=== PATIENT | female | born 1975 | race Caucasian/White ===

== ENCOUNTER 2018-09-17 17:29 | Observation (INO) | payer OTHER ==
[2018-09-17] MEDS ORDERED: CLINDAMYCIN-D5W 600 MG/50 ML*** 600 MG/50 ML BAG IV STA (18:02)
--- NOTE | 2018-09-17 18:08 | ERPHSYRPT ---
- History of Present Illness Time Seen by Provider: 09/17/18 18:04 Source: patient Patient Subjective Stated Complaint: PT STATES "I HAVE A BOIL ON THE RT SIDE OF MY VAGINA, I THOUGHT IT POPPED BUT NOW ITS BACK AND IT HURTS REALLY BAD" Triage Nursing Assessment: SWOLLEN RT LABIA NOTED Physician History: 43-year-old white female with history of diabetes, arthritis. Patient arrives with complaint of swelling and pain in the right labia symptoms for 5-6 days. Patient without nausea no vomiting. Past medical history includes diabetes type 2, arthritis. Past surgical history includes patient has had a Mirena Timing/Duration: day(s) (5-6 days) Severity: moderate Associated Symptoms: fever, No nausea, No vomiting, No shortness of breath, No heartburn, No diaphoresis, No cough, No chills, No chest pain, No headaches, No loss of appetite, No malaise, No rash, No syncope, No seizure, No weakness Allergies/Adverse Reactions: latex Allergy (Intermediate, Verified 09/17/18 17:42) Rash Home Medications: Insulin Aspart [Novolog] 30 units SQ AC 07/27/12 [History] Metformin HCl 500 mg [Glucophage 500 MG] 500 mg PO BIDWM 09/17/18 [History ] Hx Tetanus, Diphtheria Vaccination/Date Given: Yes (6 YEARS AGO) Hx Influenza Vaccination/Date Given: Yes Hx Pneumococcal Vaccination/Date Given: No Immunizations Up to Date: Yes - Review of Systems Constitutional: Fever, No Chills, No Fatigue, No Lethargy, No Malaise, No Night Sweats, No Weakness, No Weight Loss Eyes: No Symptoms Ears, Nose, & Throat: No Symptoms Respiratory: No Cough, No Dyspnea Cardiac: No Chest Pain, No Edema, No Syncope Abdominal/Gastrointestinal: No Abdominal Pain, No Nausea, No Vomiting, No Diarrhea Genitourinary Symptoms: Other (patient with hard firm area on right labia) Musculoskeletal: No Back Pain, No Neck Pain Skin: Other (hard firm area right labia.) Neurological: No Dizziness, No Focal Weakness, No Sensory Changes Psychological: No Symptoms Endocrine: No Symptoms All Other Systems: Reviewed and Negative - Past Medical History Pertinent Past Medical History: Yes Neurological History: No Pertinent History ENT History: No Pertinent History Cardiac History: No Pertinent History Respiratory History: No Pertinent History Endocrine Medical History: Diabetes Type II Musculoskeletal History: Arthritis GI Medical History: No Pertinent History History: No Pertinent History Psycho-Social History: No Pertinent History Female Reproductive Disorders: No Pertinent History - Past Surgical History Past Surgical History: Yes Neuro Surgical History: No Pertinent History Cardiac: No Pertinent History Respiratory: No Pertinent History Gastrointestinal: No Pertinent History Genitourinary: No Pertinent History Musculoskeletal: No Pertinent History Female Surgical History: Section - Social History Smoking Status: Former smoker How long have you smoked: 14 Exposure to second hand smoke: No Drug Use: none Patient Lives Alone: No - Female History Hx Last Menstrual Period: MIRENA, IRREGULAR Hx Now: No - Nursing Vital Signs Nursing Vital Signs: Initial Vital Signs Temperature 100.4 F 09/17/18 17:46 Pulse Rate 114 H 09/17/18 17:46 Respiratory Rate 16 09/17/18 17:46 Blood Pressure 150/100 09/17/18 17:46 O2 Sat by Pulse Oximetry 97 09/17/18 17:46 Pain Scale Pain Intensity 0 - Physical Exam General Appearance: mild distress Eye Exam: PERRL/EOMI, eyes nml inspection Ears, Nose, Throat Exam: normal ENT inspection, TMs normal, pharynx normal, moist mucous membranes Neck Exam: normal inspection, non-tender, supple, full range of motion Respiratory Exam: normal breath sounds, lungs clear, No respiratory distress Cardiovascular Exam: regular rate/rhythm, normal heart sounds, normal peripheral pulses Gastrointestinal/Abdomen Exam: soft, normal bowel sounds, No tenderness, No mass Pelvic Exam: other (patient with approximately 4 cm hard firm area right labia) Back Exam: normal inspection, normal range of motion, No CVA tenderness, No vertebral tenderness Extremity Exam: normal inspection, normal range of motion, pelvis stable Neurologic Exam: alert, oriented x 3, cooperative, inspector open die II-XII nml as tested, normal mood/affect, nml cerebellar function, nml station & gait, sensation nml, No motor deficits Skin Exam: other (4 cm hard firm area right labia) Lymphatic Exam: No adenopathy SpO2 Interpretation: normal (97% this) SpO2: 97 Ordered Tests: Active Orders 24 hr Category Date Time Status BLOOD CULTURE Stat Lab 09/17/18 18:25 Received BMP Stat Lab 09/17/18 18:25 Completed CBC W DIFF Stat Lab 09/17/18 18:25 Completed HCG QUALITATIVE,SERUM Stat Lab 09/17/18 18:25 Completed Medication Summary Generic Name Dose Route Start Last Admin Trade Name Thu PRN Reason Stop Dose Admin Sodium Chloride 1,000 mls @ 100 mls/hr 09/17/18 18:15 09/17/18 18:31 Sodium Chloride 0.9% 1000 Ml IV 10/17/18 18:14 100 mls/hr .Q10H SHIMON Administration Discontinued Medications Generic Name Dose Route Start Last Admin Trade Name Thu PRN Reason Stop Dose Admin Acetaminophen 650 mg 09/17/18 19:19 09/17/18 19:27 Tylenol 325 Mg PO 09/17/18 19:20 650 mg STAT ONE Administration Acetaminophen Confirm 09/17/18 19:24 Tylenol 325 Mg Administered 09/17/18 19:25 Dose 650 mg .ROUTE .Humble Bundle-Embedded Chat ONE Clindamycin HCl/Dextrose 600 mg in 50 mls @ 100 mls/hr 09/17/18 18:02 18:36 Clindamycin-D5w 600 Mg/50 Ml IV 09/17/18 18:31 100 mg/hr STAT STA 8.333 mls/hr Administration Clindamycin HCl/Dextrose Confirm 09/17/18 18:26 Clindamycin-D5w 600 Mg/50 Ml Administered 09/17/18 18:27 Dose 600 mg in 50 mls @ ud IV .STZarpo-MED ONE Lab/Rad Data: Laboratory Result Diagrams 09/17/18 18:25 09/17/18 18:25 Laboratory Results 09/17/18 09/17/18 09/17/18 Range/Units 18:25 18:25 18:25 WBC 10.3 (4.0-10.5) K/mm3 RBC 4.75 (4.1-5.4) M/mm3 Hgb 14.2 (12.0-16.0) gm/dl Hct 41.6 (35-47) % MCV 87.6 (78-100) fl MCH 29.9 (26-32) pg MCHC 34.1 (32-36) g/dl RDW 13.0 (11.5-14.0) % Plt Count 276 (150-450) K/mm3 MPV 10.8 H (6-9.5) fl Gran % 82.9 H (36.0-66.0) % Eos # (Auto) 0.06 (0-0.5) Absolute Lymphs (auto) 1.18 (1.0-4.6) Absolute Monos (auto) 0.47 (0.0-1.3) Lymphocytes % 11.5 L (24.0-44.0) % Monocytes % 4.6 (0.0-12.0) % Eosinophils % 0.6 (0.00-5.0) % Basophils % 0.4 (0.0-0.4) % Absolute Granulocytes 8.52 H (1.4-6.9) Basophils # 0.04 (0-0.4) Sodium 135 L (137-145) mmol/L Potassium 4.0 (3.5-5.1) mmol/L Chloride 101 (98-107) mmol/L Carbon Dioxide 21 L (22-30) mmol/L Anion Gap 17.2 H (5-15) MEQ/L BUN 10 (7-17) mg/dL Creatinine 0.45 L (0.52-1.04) mg/dL Estimated GFR > 60.0 ML/MIN Glucose 343 H (74-106) mg/dL Calcium 9.2 (8.4-10.2) mg/dL Serum , Qual POSITIVE (Negative) - Progress Progress: improved Progress Note: 09/17/18 18:13 43-year-old white female with the area of the swelling on the patient's right labial appears to be at least a 4-5 cm abscess. Patient with a temperature 100.4. right labial Areas very hard and firm. I've discussed case with Dr. Duran will go ahead and obtain CBC BMP hCG. Place patient on IV clindamycin plan for placement on observation obtain surgical consult. 09/17/18 19:15 The patient has a positive serum HCG. Dr Duran notified, still wants surgical consult still plan on admission on iv normal saline and clindamycin. 09/17/18 19:35 Dr Wallace notified of surgical consult. - Departure Time of Disposition: 19:36 Departure Disposition: Observation Clinical Impression: Labial abscess, Hyperglycemia, Positive test Fever Qualifiers: Fever type: unspecified Qualified Code(s): R50.9 - Fever, unspecified Condition: Fair Critical Care Time: No Referrals: MILO DURAN MD [Primary Care Provider] -
[2018-09-17] MEDS ORDERED: Sodium Chloride 0.9% 1000 ML 1,000 ML IV SCH ×2 (18:15→20:07)
[2018-09-17] MEDS ORDERED: CLINDAMYCIN-D5W 600 MG/50 ML*** 600 MG/50 ML BAG IV ONE (18:26)
[2018-09-17] MEDS ORDERED: Sodium Chloride 0.9% 1000 ML 1,000 ML ONE (18:26)
[2018-09-17 18:31] LABS: BASOPHIL % 0.4 % (0.0-0.4); Basophil (Absolute #) 0.04 (0-0.4); Eosinophil % 0.6 % (0.00-5.0); Eosinophil (Absolute #) 0.06 (0-0.5); Granulocyte Absolute (ANC) 8.52 (1.4-6.9); Granulocytes % 82.9 % (36.0-66.0); Hematocrit 41.6 % (35-47); Hemoglobin 14.2 gm/dl (12.0-16.0); Lymphocyte (Absolute #) 1.18 (1.0-4.6); Lymphocytes % 11.5 % (24.0-44.0); Mean Cell Volume 87.6 fl (78-100); Mean Corpuscular Hemoglobin 29.9 pg (26-32); Mean Corpuscular Hgb Concent. 34.1 g/dl (32-36); Mean Platelet Volume 10.8 fl (6-9.5); Monocyte (Absolute #) 0.47 (0.0-1.3); Monocytes % 4.6 % (0.0-12.0); Platelet Count 276 K/mm3 (150-450); Red Blood Count 4.75 M/mm3 (4.1-5.4); White Blood Count 10.3 K/mm3 (4.0-10.5)
[2018-09-17 18:43] LABS: ANION GAP 17.2 MEQ/L (5-15); BLOOD UREA NITROGEN 10 mg/dL (7-17); CHLORIDE 101 mmol/L (98-107); Calcium 9.2 mg/dL (8.4-10.2); Carbon Dioxide 21 mmol/L (22-30); Creatinine 1 0.45 mg/dL (0.52-1.04); Glucose 343 mg/dL (74-106); SODIUM 135 mmol/L (137-145)
[2018-09-17] MEDS ORDERED: TYLENOL 325 MG PO ONE (19:19)
[2018-09-17] MEDS ORDERED: TYLENOL 325 MG ONE (19:24)
[2018-09-17] MEDS ORDERED: SUBLIMAZE 100 MCG/2 ML IV ONE (20:01)
[2018-09-17] MEDS ORDERED: DIPRIVAN 200 MG/20 ML IV ONE (20:01)
[2018-09-17] MEDS ORDERED: Versed 2 MG/2 ML Injection IV ONE (20:01)
[2018-09-17] MEDS ORDERED: TYLENOL 325 MG PO PRN (20:07)
[2018-09-17] MEDS: NovoLOG Insulin SQ PRN (23:19)
[2018-09-18] MEDS: NovoLOG Insulin SQ PRN ×5 (01:17→23:27)
[2018-09-18] MEDS: CLINDAMYCIN-D5W 600 MG/50 ML*** 600 MG/50 ML BAG IV SCH ×3 (02:31→16:45)
[2018-09-18 06:22] LABS: BASOPHIL % 0.3 % (0.0-0.4); Basophil (Absolute #) 0.02 (0-0.4); Eosinophil % 1.8 % (0.00-5.0); Eosinophil (Absolute #) 0.13 (0-0.5); Granulocyte Absolute (ANC) 4.86 (1.4-6.9); Granulocytes % 68.3 % (36.0-66.0); Hemoglobin 11.9 gm/dl (12.0-16.0); Lymphocyte (Absolute #) 1.62 (1.0-4.6); Lymphocytes % 22.8 % (24.0-44.0); Mean Cell Volume 88.2 fl (78-100); Mean Platelet Volume 10.7 fl (6-9.5); Monocyte (Absolute #) 0.48 (0.0-1.3); Monocytes % 6.8 % (0.0-12.0); Platelet Count 240 K/mm3 (150-450); Red Blood Count 3.97 M/mm3 (4.1-5.4); Red Cell Distribution Width 12.9 % (11.5-14.0); White Blood Count 7.1 K/mm3 (4.0-10.5)
[2018-09-18 06:37] LABS: Mean Corpuscular Hemoglobin 29.9 pg (26-32)
[2018-09-18 06:42] LABS: ALBUMIN 3.3 g/dL (3.5-5.0); ALKALINE PHOSPHATASE 66 U/L (38-126); ANION GAP 9.1 MEQ/L (5-15); BLOOD UREA NITROGEN 10 mg/dL (7-17); CHLORIDE 103 mmol/L (98-107); Calcium 8.2 mg/dL (8.4-10.2); Carbon Dioxide 27 mmol/L (22-30); Creatinine 1 0.41 mg/dL (0.52-1.04); Glucose 257 mg/dL (74-106); Potassium 3.7 mmol/L (3.5-5.1); SGOT/AST 14 U/L (14-36); SGPT/ALT 13 U/L (0-35); SODIUM 135 mmol/L (137-145); Total Protein 6.2 g/dL (6.3-8.2)
--- NOTE | 2018-09-18 08:53 | XRAY ---
Indication: Positive test. History of IUD. Two-dimensional transvaginal early OB ultrasound performed. Comparison: None Uterus is anteverted with a low lying IUD. No endometrial cavity solid/cystic mass but tiny sliver of fluid in the lower uterine segment. Right ovary measures 3.5 x 2.2 x 4.1 cm and demonstrates a 1.2 x 2.0 cm cystic mass with low-level internal echoes and rim of color Doppler flow for which a ectopic is of primary concern. No pole or heart tones. The left measures 4.2 x 2.2 x 2.9 cm with a 2.5 cm anechoic cyst. No free fluid. Impression: 1. Right ovary demonstrates a abnormal cystic mass as detailed. Ectopic is of primary concern given positive test. 2. Low-lying IUD. Comment: Immediate preliminary report was given.
--- NOTE | 2018-09-18 10:35 | PCM.HP ---
History of Present Illness - Chief Complaint Chief Complaint: labia abscess, hyperglycemia, positive test History of Present Illness: is a 43 year old female with a history of type 2 diabetes on insulin, she has had complaints of right labial pain and swelling for 2 weeks. had an area open and drain, but has continued to worsen, ran fever so came to ER. No abdominal pain, no vaginal bleeding, no symptoms or . - Review of Systems Constitutional: Fever, Chills Respiratory: No Cough, No Short Of Breath Cardiac: No Chest Pain, No Edema, No Syncope Abdominal/Gastrointestinal: No Symptoms Genitourinary Symptoms: Other (right labial pain and swelling), No Vaginal Bleeding Skin: No Rash Neurological: No Dizziness, No Focal Weakness, No Sensory Changes Medications & Allergies Home Medications: Home Medication List Insulin Aspart [Novolog] 30 units SQ AC 07/27/12 [History Confirmed 09/17/18] Metformin HCl 500 mg [Glucophage 500 MG] 500 mg PO BIDWM 09/17/18 [ History Confirmed 09/17/18] Allergies/Adverse Reactions: Allergies Allergy/AdvReac Type Severity Reaction Status Date / Time latex Allergy Intermediate Rash Verified 09/17/18 17:42 - Past Medical History Past Medical History: Yes Neurological History: No Pertinent History ENT History: No Pertinent History Cardiac History: No Pertinent History Respiratory History: Bronchitis Endocrine Medical History: Diabetes Type II, Hypoglycemia Musculoskelatal History: Arthritis GI Medical History: Hemorrhoids History: No Pertinent History Pyscho-Social History: No Pertinent History Reproductive Disorders: No Pertinent History - Female History Hx Last Menstrual Period: 2 months ago Are you now?: Yes - Past Surgical History Past Surgical History: Yes Neuro Surgical History: No Pertinent History Cardiac History: No Pertinent History Respiratory Surgery: No Pertinent History GI Surgical History: No Pertinent History Genitourinary Surgical Hx: No Pertinent History Musculskeletal Surgical Hx: No Pertinent History Female Surgical History: Section - Social History Smoking Status: Former smoker How long have you smoked: 14 Exposure to second hand smoke: No Alcohol: None Drug Use: none - Physical Exam Vital Signs: Vital Signs - 24 hr Temp Pulse Resp BP BP Pulse Ox 09/18/18 08:00 98.2 F 82 18 117/63 95 09/18/18 04:00 98.3 F 80 16 117/66 94 L 09/18/18 00:00 98.8 F 84 117/63 97 09/17/18 21:49 98.5 F 105 H 20 164/82 96 09/17/18 21:00 96 09/17/18 20:09 98.5 F 105 H 20 164/82 96 09/17/18 19:38 97 09/17/18 19:29 110 H 18 123/77 98 09/17/18 18:50 106 H 20 123/77 95 09/17/18 18:46 101.7 F 09/17/18 18:44 113 H 22 137/85 96 09/17/18 17:46 100.4 F 114 H 16 150/100 97 General Appearance: no apparent distress, obese Neurologic Exam: alert, oriented x 3, cooperative, normal mood/affect, nml cerebellar function, nml station & gait, sensation nml, No motor deficits Respiratory Exam: normal breath sounds, lungs clear, No respiratory distress Cardiovascular Exam: regular rate/rhythm, normal heart sounds, normal peripheral pulses Gastrointestinal/Abdomen Exam: soft, normal bowel sounds, No tenderness, No mass Pelvic Exam: other (large area of induration 10cm right labia extending anteriorly in inguinal region, red and warm to palpation. no drainage) Extremity Exam: normal inspection, normal range of motion, pelvis stable Results - Labs Lab/Micro Results: Accuchecks Date 09/18/18 Date 09/18/18 Date 09/18/18 Time 08:00 Time 04:00 Time 00:00 Accucheck Value: 294 Accucheck Value: 240 Accucheck Value: 256 Lab Results-Last 24 Hours 09/17/18 09/17/18 09/17/18 Range/Units 18:25 18:25 18:25 WBC 10.3 (4.0-10.5) K/mm3 RBC 4.75 (4.1-5.4) M/mm3 Hgb 14.2 (12.0-16.0) gm/dl Hct 41.6 (35-47) % MCV 87.6 (78-100) fl MCH 29.9 (26-32) pg MCHC 34.1 (32-36) g/dl RDW 13.0 (11.5-14.0) % Plt Count 276 (150-450) K/mm3 MPV 10.8 H (6-9.5) fl Gran % 82.9 H (36.0-66.0) % Eos # (Auto) 0.06 (0-0.5) Absolute Lymphs (auto) 1.18 (1.0-4.6) Absolute Monos (auto) 0.47 (0.0-1.3) Lymphocytes % 11.5 L (24.0-44.0) % Monocytes % 4.6 (0.0-12.0) % Eosinophils % 0.6 (0.00-5.0) % Basophils % 0.4 (0.0-0.4) % Absolute Granulocytes 8.52 H (1.4-6.9) Basophils # 0.04 (0-0.4) Sodium 135 L (137-145) mmol/L Potassium 4.0 (3.5-5.1) mmol/L Chloride 101 (98-107) mmol/L Carbon Dioxide 21 L (22-30) mmol/L Anion Gap 17.2 H (5-15) MEQ/L BUN 10 (7-17) mg/dL Creatinine 0.45 L (0.52-1.04) mg/dL Estimated GFR > 60.0 ML/MIN Glucose 343 H (74-106) mg/dL Hemoglobin A1c (4.5-6.0) % Calcium 9.2 (8.4-10.2) mg/dL Total Bilirubin (0.2-1.3) mg/dL AST (14-36) U/L ALT (0-35) U/L Alkaline Phosphatase (38-126) U/L Serum Total Protein (6.3-8.2) g/dL Albumin (3.5-5.0) g/dL Beta HCG, Quant mIU/ml Serum , Qual POSITIVE (Negative) 09/17/18 09/18/18 09/18/18 Range/Units 18:25 05:49 05:49 WBC 7.1 (4.0-10.5) K/mm3 RBC 3.97 L (4.1-5.4) M/mm3 Hgb 11.9 L (12.0-16.0) gm/dl Hct 35.0 (35-47) % MCV 88.2 (78-100) fl MCH 29.9 (26-32) pg MCHC 34.0 (32-36) g/dl RDW 12.9 (11.5-14.0) % Plt Count 240 (150-450) K/mm3 MPV 10.7 H (6-9.5) fl Gran % 68.3 H (36.0-66.0) % Eos # (Auto) 0.13 (0-0.5) Absolute Lymphs (auto) 1.62 (1.0-4.6) Absolute Monos (auto) 0.48 (0.0-1.3) Lymphocytes % 22.8 L (24.0-44.0) % Monocytes % 6.8 (0.0-12.0) % Eosinophils % 1.8 (0.00-5.0) % Basophils % 0.3 (0.0-0.4) % Absolute Granulocytes 4.86 (1.4-6.9) Basophils # 0.02 (0-0.4) Sodium 135 L (137-145) mmol/L Potassium 3.7 (3.5-5.1) mmol/L Chloride 103 (98-107) mmol/L Carbon Dioxide 27 (22-30) mmol/L Anion Gap 9.1 (5-15) MEQ/L BUN 10 (7-17) mg/dL Creatinine 0.41 L (0.52-1.04) mg/dL Estimated GFR > 60.0 ML/MIN Glucose 257 H (74-106) mg/dL Hemoglobin A1c (4.5-6.0) % Calcium 8.2 L (8.4-10.2) mg/dL Total Bilirubin 0.70 (0.2-1.3) mg/dL AST 14 (14-36) U/L ALT 13 (0-35) U/L Alkaline Phosphatase 66 (38-126) U/L Serum Total Protein 6.2 L (6.3-8.2) g/dL Albumin 3.3 L (3.5-5.0) g/dL Beta HCG, Quant < 2.39 mIU/ml Serum , Qual (Negative) 09/18/18 Range/Units 08:35 WBC (4.0-10.5) K/mm3 RBC (4.1-5.4) M/mm3 Hgb (12.0-16.0) gm/dl Hct (35-47) % MCV (78-100) fl MCH (26-32) pg MCHC (32-36) g/dl RDW (11.5-14.0) % Plt Count (150-450) K/mm3 MPV (6-9.5) fl Gran % (36.0-66.0) % Eos # (Auto) (0-0.5) Absolute Lymphs (auto) (1.0-4.6) Absolute Monos (auto) (0.0-1.3) Lymphocytes % (24.0-44.0) % Monocytes % (0.0-12.0) % Eosinophils % (0.00-5.0) % Basophils % (0.0-0.4) % Absolute Granulocytes (1.4-6.9) Basophils # (0-0.4) Sodium (137-145) mmol/L Potassium (3.5-5.1) mmol/L Chloride (98-107) mmol/L Carbon Dioxide (22-30) mmol/L Anion Gap (5-15) MEQ/L BUN (7-17) mg/dL Creatinine (0.52-1.04) mg/dL Estimated GFR ML/MIN Glucose (74-106) mg/dL Hemoglobin A1c 10.60 H (4.5-6.0) % Calcium (8.4-10.2) mg/dL Total Bilirubin (0.2-1.3) mg/dL AST (14-36) U/L ALT (0-35) U/L Alkaline Phosphatase (38-126) U/L Serum Total Protein (6.3-8.2) g/dL Albumin (3.5-5.0) g/dL Beta HCG, Quant mIU/ml Serum , Qual (Negative) Accuchecks Date 09/18/18 Date 09/18/18 Date 09/18/18 Time 08:00 Time 04:00 Time 00:00 Accucheck Value: 294 Accucheck Value: 240 Accucheck Value: 256 - Radiology Impressions Radiology Exams & Impressions: Radiology Procedures Category Date Time Status OB <14 WKS 1ST GESTATION [US] Stat Exams 09/17/18 20:07 Completed Assessment/Plan (1) Labial abscess Current Visit: Yes Status: Acute Onset Date: ~09/17/18 Assessment & Plan: on clindamycin, surgery consulted. make npo at this time, unfortunately already had breakfast. area will need rather extensive incision and drainage most likely Code(s): N76.4 - ABSCESS OF VULVA (2) Positive test Current Visit: Yes Status: Acute Onset Date: ~09/17/18 Assessment & Plan: spoke with Bernadette in lab, had +qualitative hcg but quant negative, she pulled specimen, result was entered in error. ultrasound shows IUD in place so cystic area in ovary is indeed a cyst. PATIENT IS NOT , she was reassured and informed of lab error Code(s): Z32.01 - ENCOUNTER FOR TEST, RESULT POSITIVE (3) Type 2 diabetes mellitus Current Visit: Yes Status: Acute Assessment & Plan: a1c >10%, patient with history of poor compliance. has seen endocrinology in the past. patient made npo at this time, will start on lantus 10 units at hs today, will increase as needed.
[2018-09-18] MEDS ORDERED: Reglan 10 MG/2 ML IV ONE (11:03)
[2018-09-18] MEDS ORDERED: Pepcid 20 MG VIAL IV ONE (11:04)
[2018-09-18] MEDS ORDERED: Morphine PCA 1 MG/ML 30 ML IV PRN (19:52)
[2018-09-18] MEDS ORDERED: Dextrose 5% -0.45 NaCl 1000 ML 1,000 ML IV ONE (20:29)
[2018-09-18] MEDS ORDERED: Dextrose 5% -0.45 NaCl 1000 ML 1,000 ML IV SCH (20:45)
[2018-09-18] MEDS ORDERED: Lantus Insulin SQ SCH (22:00)
[2018-09-18] MEDS: Glucophage 500 MG PO SCH (23:24)
[2018-09-19] MEDS: NovoLOG Insulin SQ PRN ×5 (00:43→23:59)
[2018-09-19] MEDS: CLINDAMYCIN-D5W 600 MG/50 ML*** 600 MG/50 ML BAG IV SCH ×3 (02:02→17:47)
[2018-09-19 06:17] LABS: BASOPHIL % 0.7 % (0.0-0.4); Basophil (Absolute #) 0.05 (0-0.4); Eosinophil % 2.8 % (0.00-5.0); Eosinophil (Absolute #) 0.19 (0-0.5); Granulocyte Absolute (ANC) 4.16 (1.4-6.9); Granulocytes % 60.7 % (36.0-66.0); Hematocrit 34.7 % (35-47); Hemoglobin 11.7 gm/dl (12.0-16.0); Lymphocyte (Absolute #) 1.96 (1.0-4.6); Lymphocytes % 28.6 % (24.0-44.0); Mean Cell Volume 89.4 fl (78-100); Mean Corpuscular Hgb Concent. 33.7 g/dl (32-36); Mean Platelet Volume 10.5 fl (6-9.5); Monocyte (Absolute #) 0.49 (0.0-1.3); Monocytes % 7.2 % (0.0-12.0); Platelet Count 271 K/mm3 (150-450); Red Blood Count 3.88 M/mm3 (4.1-5.4); White Blood Count 6.9 K/mm3 (4.0-10.5)
[2018-09-19 06:22] LABS: Mean Corpuscular Hemoglobin 30.1 pg (26-32)
[2018-09-19 06:31] LABS: ALBUMIN 3.2 g/dL (3.5-5.0); ALKALINE PHOSPHATASE 71 U/L (38-126); ANION GAP 10.1 MEQ/L (5-15); BLOOD UREA NITROGEN 6 mg/dL (7-17); CHLORIDE 104 mmol/L (98-107); Calcium 8.3 mg/dL (8.4-10.2); Carbon Dioxide 26 mmol/L (22-30); Creatinine 1 0.38 mg/dL (0.52-1.04); Glucose 227 mg/dL (74-106); SGOT/AST 12 U/L (14-36); SGPT/ALT 14 U/L (0-35); SODIUM 136 mmol/L (137-145); Total Protein 6.4 g/dL (6.3-8.2)
[2018-09-19] MEDS: Glucophage 500 MG PO SCH ×2 (08:10→17:47)
[2018-09-19] MEDS: NovoLOG Insulin SQ SCH ×3 (08:10→19:01)
[2018-09-19] MEDS ORDERED: Zofran 4 MG/2 ML VIAL IV PRN (08:43)
[2018-09-19] MEDS ORDERED: Lantus Insulin SQ SCH (08:46)
--- NOTE | 2018-09-19 08:50 | PCM.NOTE ---
Date and Time: 09/19/18 0848 Subjective Assessment: patient had incision and drainage last evening in surgery, tolerating po but complaining of nausea this morning. no fever overnight Objective Exam General Appearance: no apparent distress, alert Respiratory Exam: normal breath sounds, lungs clear, No respiratory distress Cardiovascular Exam: regular rate/rhythm, normal heart sounds Gastrointestinal/Abdomen Exam: soft, other (dressing present in groin, left intact), No tenderness, No mass OBJECTIVE DATA Vital Signs: Vital Signs - 24 hr Temp Pulse Resp BP BP Pulse Ox 09/19/18 07:36 98.9 F 94 H 18 122/56 96 09/19/18 04:34 96 09/19/18 04:00 98.1 F 85 18 102/53 96 09/19/18 00:34 96 09/19/18 00:21 97.7 F 101 H 20 131/62 96 09/18/18 21:45 98.7 F 101 H 18 135/63 97 09/18/18 21:00 94 L 09/18/18 20:34 96 09/18/18 20:15 98.4 F 92 H 18 143/74 96 09/18/18 19:45 98.4 F 95 H 18 135/74 97 09/18/18 19:30 98.9 F 92 H 17 135/70 96 09/18/18 19:15 97.6 F 96 H 18 137/73 95 09/18/18 19:00 97.9 F 97 H 18 137/75 95 09/18/18 16:31 97.5 F 100 H 18 139/82 142/79 98 09/18/18 16:00 98.3 F 94 H 18 139/82 95 09/18/18 11:27 98.3 F 90 18 131/66 96 Pain Assessment - Last Documented Pain Intensity 0 Pain Scale Used 0-10 Pain Scale Intake and Output: Intake & Output 09/16/18 09/17/18 09/18/18 09/19/18 11:59 11:59 11:59 11:59 Intake Total 2339 5739 Output Total 700 Balance 2336 1838 Weight 123.8 kg 123.6 kg Lab Results: Accuchecks Date 09/19/18 Date 09/19/18 Date 09/19/18 Date 09/18/18 Date 09/18/18 Time 02:25 Time 00:20 Time 22:00 Time 16:15 Time 12:00 Accucheck Value: 411 Accucheck Value: 264 Accucheck Value: 226 Accucheck Value: 314 Lab Results-Last 24 Hours 09/17/18 09/18/18 09/19/18 Range/Units 18:25 08:35 06:05 WBC 6.9 (4.0-10.5) K/mm3 RBC 3.88 L (4.1-5.4) M/mm3 Hgb 11.7 L (12.0-16.0) gm/dl Hct 34.7 L (35-47) % MCV 89.4 (78-100) fl MCH 30.1 (26-32) pg MCHC 33.7 (32-36) g/dl RDW 13.0 (11.5-14.0) % Plt Count 271 (150-450) K/mm3 MPV 10.5 H (6-9.5) fl Gran % 60.7 (36.0-66.0) % Eos # (Auto) 0.19 (0-0.5) Absolute Lymphs (auto) 1.96 (1.0-4.6) Absolute Monos (auto) 0.49 (0.0-1.3) Lymphocytes % 28.6 (24.0-44.0) % Monocytes % 7.2 (0.0-12.0) % Eosinophils % 2.8 (0.00-5.0) % Basophils % 0.7 (0.0-0.4) % Absolute Granulocytes 4.16 (1.4-6.9) Basophils # 0.05 (0-0.4) Sodium (137-145) mmol/L Potassium (3.5-5.1) mmol/L Chloride (98-107) mmol/L Carbon Dioxide (22-30) mmol/L Anion Gap (5-15) MEQ/L BUN (7-17) mg/dL Creatinine (0.52-1.04) mg/dL Estimated GFR ML/MIN Glucose (74-106) mg/dL Hemoglobin A1c 10.60 H (4.5-6.0) % Calcium (8.4-10.2) mg/dL Total Bilirubin (0.2-1.3) mg/dL AST (14-36) U/L ALT (0-35) U/L Alkaline Phosphatase (38-126) U/L Serum Total Protein (6.3-8.2) g/dL Albumin (3.5-5.0) g/dL Serum , Qual NEGATIVE (Negative) 09/19/18 Range/Units 06:05 WBC (4.0-10.5) K/mm3 RBC (4.1-5.4) M/mm3 Hgb (12.0-16.0) gm/dl Hct (35-47) % MCV (78-100) fl MCH (26-32) pg MCHC (32-36) g/dl RDW (11.5-14.0) % Plt Count (150-450) K/mm3 MPV (6-9.5) fl Gran % (36.0-66.0) % Eos # (Auto) (0-0.5) Absolute Lymphs (auto) (1.0-4.6) Absolute Monos (auto) (0.0-1.3) Lymphocytes % (24.0-44.0) % Monocytes % (0.0-12.0) % Eosinophils % (0.00-5.0) % Basophils % (0.0-0.4) % Absolute Granulocytes (1.4-6.9) Basophils # (0-0.4) Sodium 136 L (137-145) mmol/L Potassium 4.0 (3.5-5.1) mmol/L Chloride 104 (98-107) mmol/L Carbon Dioxide 26 (22-30) mmol/L Anion Gap 10.1 (5-15) MEQ/L BUN 6 L (7-17) mg/dL Creatinine 0.38 L (0.52-1.04) mg/dL Estimated GFR > 60.0 ML/MIN Glucose 227 H (74-106) mg/dL Hemoglobin A1c (4.5-6.0) % Calcium 8.3 L (8.4-10.2) mg/dL Total Bilirubin 0.40 (0.2-1.3) mg/dL AST 12 L (14-36) U/L ALT 14 (0-35) U/L Alkaline Phosphatase 71 (38-126) U/L Serum Total Protein 6.4 (6.3-8.2) g/dL Albumin 3.2 L (3.5-5.0) g/dL Serum , Qual (Negative) Radiology Exams: Radiology Procedures Category Date Time Status OB <14 WKS 1ST GESTATION [US] Stat Exams 09/17/18 20:07 Completed Assessment/Plan (1) Labial abscess Current Visit: Yes Status: Acute Onset Date: ~09/17/18 Assessment & Plan: continue cleocin, awaiting culture results Code(s): N76.4 - ABSCESS OF VULVA (2) Type 2 diabetes mellitus Current Visit: Yes Status: Acute Assessment & Plan: increase lantus to 20 units, continue SSI
--- NOTE | 2018-09-19 10:14 | OP ---
SURGERY DATE/TIME: 09/18/2018 1740 PREOPERATIVE DIAGNOSIS: Right labial abscess. POSTOPERATIVE DIAGNOSIS: Right labial abscess. PROCEDURE: I&D. SURGEON: Santana Wallace M.D. ANESTHESIA: General. COMPLICATIONS: None. CONDITION: Stable. INDICATION: The patient has right labial abscess. DESCRIPTION OF PROCEDURE: Taken to surgery. Lithotomy. Routine prep and drape. Time out performed. A 1 inch vertical slightly curved incision on the right labia and 1 ounce of pus was released. Hemostasis satisfactory. It was packed with Iodoform. The patient tolerated the procedure satisfactorily.
[2018-09-19] MEDS ORDERED: Sodium Chloride 0.9% 500 ML 500 ML IV SCH (19:45)
[2018-09-20] MEDS: CLINDAMYCIN-D5W 600 MG/50 ML*** 600 MG/50 ML BAG IV SCH ×3 (02:10→17:19)
[2018-09-20 06:04] LABS: BASOPHIL % 0.6 % (0.0-0.4); Basophil (Absolute #) 0.03 (0-0.4); Eosinophil % 4.1 % (0.00-5.0); Eosinophil (Absolute #) 0.21 (0-0.5); Granulocyte Absolute (ANC) 2.73 (1.4-6.9); Granulocytes % 53.3 % (36.0-66.0); Hematocrit 34.2 % (35-47); Hemoglobin 11.4 gm/dl (12.0-16.0); Lymphocyte (Absolute #) 1.77 (1.0-4.6); Lymphocytes % 34.6 % (24.0-44.0); Mean Cell Volume 89.8 fl (78-100); Mean Corpuscular Hemoglobin 29.9 pg (26-32); Mean Corpuscular Hgb Concent. 33.3 g/dl (32-36); Mean Platelet Volume 10.4 fl (6-9.5); Monocyte (Absolute #) 0.38 (0.0-1.3); Monocytes % 7.4 % (0.0-12.0); Platelet Count 276 K/mm3 (150-450); Red Blood Count 3.81 M/mm3 (4.1-5.4); Red Cell Distribution Width 13.1 % (11.5-14.0); White Blood Count 5.1 K/mm3 (4.0-10.5)
[2018-09-20 06:15] LABS: BLOOD UREA NITROGEN 10 mg/dL (7-17); CHLORIDE 103 mmol/L (98-107); Calcium 8.3 mg/dL (8.4-10.2); Carbon Dioxide 28 mmol/L (22-30); Creatinine 1 0.44 mg/dL (0.52-1.04); Glucose 274 mg/dL (74-106); Potassium 4.3 mmol/L (3.5-5.1); SODIUM 136 mmol/L (137-145)
--- NOTE | 2018-09-20 08:10 | PCM.NOTE ---
Date and Time: 09/20/18 0807 Subjective Assessment: patient is improving, pain is improved. she is tolerating po, able to ambulate to restroom. had packing replaced in wound. Objective Exam General Appearance: no apparent distress, alert Skin Exam: normal color, warm, dry Respiratory Exam: normal breath sounds, lungs clear, No respiratory distress Cardiovascular Exam: regular rate/rhythm, normal heart sounds Gastrointestinal/Abdomen Exam: soft, No tenderness, No mass Pelvic Exam: other (indurated area improved, redness improved to right labia) OBJECTIVE DATA Vital Signs: Vital Signs - 24 hr Temp Pulse Resp BP Pulse Ox 09/20/18 07:30 97.9 F 79 21 134/66 97 09/20/18 07:28 98 09/20/18 07:00 93 L 09/20/18 06:50 93 L 09/20/18 04:00 98.5 F 81 16 113/66 93 L 09/20/18 00:00 98.9 F 86 19 108/63 95 09/19/18 20:47 93 L 09/19/18 20:00 98.6 F 99 H 20 118/59 96 09/19/18 16:00 98.4 F 90 18 122/60 97 09/19/18 12:00 98.6 F 91 H 18 121/68 96 09/19/18 09:27 96 09/19/18 08:34 96 Pain Assessment - Last Documented Pain Intensity 5 Pain Scale Used 0-10 Pain Scale Intake and Output: Intake & Output 09/17/18 09/18/18 09/19/18 09/20/18 11:59 11:59 11:59 11:59 Intake Total 2339 3469 2659 Output Total 700 600 Balance 2339 2299 2059 Weight 123.8 kg 123.6 kg 123.3 kg Lab Results: Accuchecks Date 09/19/18 Date 09/19/18 Date 09/19/18 Time 20:00 Time 16:30 Time 11:30 Accucheck Value: 260 Accucheck Value: 112 Accucheck Value: 136 Lab Results-Last 24 Hours 09/20/18 09/20/18 Range/Units 05:50 05:50 WBC 5.1 (4.0-10.5) K/mm3 RBC 3.81 L (4.1-5.4) M/mm3 Hgb 11.4 L (12.0-16.0) gm/dl Hct 34.2 L (35-47) % MCV 89.8 (78-100) fl MCH 29.9 (26-32) pg MCHC 33.3 (32-36) g/dl RDW 13.1 (11.5-14.0) % Plt Count 276 (150-450) K/mm3 MPV 10.4 H (6-9.5) fl Gran % 53.3 (36.0-66.0) % Eos # (Auto) 0.21 (0-0.5) Absolute Lymphs (auto) 1.77 (1.0-4.6) Absolute Monos (auto) 0.38 (0.0-1.3) Lymphocytes % 34.6 (24.0-44.0) % Monocytes % 7.4 (0.0-12.0) % Eosinophils % 4.1 (0.00-5.0) % Basophils % 0.6 (0.0-0.4) % Absolute Granulocytes 2.73 (1.4-6.9) Basophils # 0.03 (0-0.4) Sodium 136 L (137-145) mmol/L Potassium 4.3 (3.5-5.1) mmol/L Chloride 103 (98-107) mmol/L Carbon Dioxide 28 (22-30) mmol/L Anion Gap 10.0 (5-15) MEQ/L BUN 10 (7-17) mg/dL Creatinine 0.44 L (0.52-1.04) mg/dL Estimated GFR > 60.0 ML/MIN Glucose 274 H (74-106) mg/dL Calcium 8.3 L (8.4-10.2) mg/dL Assessment/Plan (1) Labial abscess Current Visit: Yes Status: Acute Onset Date: ~09/17/18 Assessment & Plan: continue cleocin at this time, wound culture pending Code(s): N76.4 - ABSCESS OF VULVA (2) Type 2 diabetes mellitus Current Visit: Yes Status: Acute Assessment & Plan: a1c out of control, patient having difficulty affording insulin, plan to switch to novolin 70/30 due to cost at discharge
[2018-09-20] MEDS: NovoLOG Insulin SQ SCH ×3 (08:30→16:32)
[2018-09-20] MEDS: Glucophage 500 MG PO SCH ×2 (08:30→17:19)
[2018-09-20] MEDS: NovoLOG Insulin SQ PRN ×3 (08:31→22:00)
[2018-09-20] MEDS ORDERED: PHARMACY DOSING REQUEST MC ONE (09:05)
[2018-09-20] MEDS: NORCO 5/325 MG PO PRN ×3 (10:14→21:41)
[2018-09-20] MEDS: Novolin 70/30 SQ SCH (17:19)
[2018-09-21] MEDS: CLINDAMYCIN-D5W 600 MG/50 ML*** 600 MG/50 ML BAG IV SCH (02:10)
[2018-09-21 04:03] VITALS: O2SAT 97
[2018-09-21 05:55] LABS: BASOPHIL % 0.8 % (0.0-0.4); Basophil (Absolute #) 0.04 (0-0.4); Eosinophil % 3.7 % (0.00-5.0); Eosinophil (Absolute #) 0.19 (0-0.5); Granulocyte Absolute (ANC) 2.42 (1.4-6.9); Granulocytes % 46.6 % (36.0-66.0); Hematocrit 35.1 % (35-47); Hemoglobin 11.7 gm/dl (12.0-16.0); Lymphocyte (Absolute #) 2.22 (1.0-4.6); Lymphocytes % 42.9 % (24.0-44.0); Mean Cell Volume 87.8 fl (78-100); Mean Corpuscular Hgb Concent. 33.3 g/dl (32-36); Mean Platelet Volume 10.4 fl (6-9.5); Monocyte (Absolute #) 0.31 (0.0-1.3); Platelet Count 292 K/mm3 (150-450); Red Cell Distribution Width 12.7 % (11.5-14.0); White Blood Count 5.2 K/mm3 (4.0-10.5)
[2018-09-21 05:56] LABS: Mean Corpuscular Hemoglobin 29.2 pg (26-32)
[2018-09-21 06:22] LABS: ALBUMIN 3.2 g/dL (3.5-5.0); ALKALINE PHOSPHATASE 71 U/L (38-126); ANION GAP 12.2 MEQ/L (5-15); BLOOD UREA NITROGEN 12 mg/dL (7-17); CHLORIDE 101 mmol/L (98-107); Calcium 8.7 mg/dL (8.4-10.2); Carbon Dioxide 26 mmol/L (22-30); Creatinine 1 0.37 mg/dL (0.52-1.04); Glucose 274 mg/dL (74-106); Potassium 4.1 mmol/L (3.5-5.1); SGOT/AST 18 U/L (14-36); SGPT/ALT 17 U/L (0-35); SODIUM 136 mmol/L (137-145); Total Protein 6.3 g/dL (6.3-8.2)
[2018-09-21 07:50] VITALS: BP 133/73; PULSE 74
--- NOTE | 2018-09-21 08:15 | PCM.DS ---
Discharge Summary Date of Admission: 09/17/18 20:00 Admitting Physician: MILO ESPINO Consults: Consults on Case 09/17/18 20:07 Consult Surgery ROUTINE Primary Care Provider: MILO ESPINO Allergies Allergies latex Allergy (Intermediate, Verified 09/17/18 17:42) Rash Hospital Summary - Hospital Course Hospital Course: patient had large right labial abscess and underwent incision and drainage, doing quite well postoperatively. no fever, white count normal. pain is controlled on po meds. she is tolerating po intake. blood sugars have been wildly out of control, she has had trouble affording her insulin - Vitals & Intake/Output Vital Signs: Vital Signs Temperature 98.1 F 09/21/18 07:50 Pulse Rate 74 09/21/18 07:50 Respiratory Rate 20 09/21/18 07:50 Blood Pressure 133/73 09/21/18 07:50 O2 Sat by Pulse Oximetry 97 09/21/18 07:50 Intake & Output: Intake & Output 09/18/18 09/19/18 09/20/18 09/21/18 11:59 11:59 11:59 11:59 Intake Total 2339 3469 2899 1900 Output Total 700 1250 600 Balance 2339 2769 1649 1300 Weight 123.8 kg 123.6 kg 123.3 kg 124.1 kg - Lab Result Diagrams: 09/21/18 05:00 09/21/18 05:25 Lab Results-Last 24 Hrs: Accuchecks Date 09/20/18 Date 09/20/18 Date 09/20/18 Time 20:00 Time 16:30 Time 11:30 Accucheck Value: 273 Accucheck Value: 136 Accucheck Value: 241 Lab Results-Last 24 Hours 09/21/18 09/21/18 Range/Units 05:00 05:25 WBC 5.2 (4.0-10.5) K/mm3 RBC 4.00 L (4.1-5.4) M/mm3 Hgb 11.7 L (12.0-16.0) gm/dl Hct 35.1 (35-47) % MCV 87.8 (78-100) fl MCH 29.2 (26-32) pg MCHC 33.3 (32-36) g/dl RDW 12.7 (11.5-14.0) % Plt Count 292 (150-450) K/mm3 MPV 10.4 H (6-9.5) fl Gran % 46.6 (36.0-66.0) % Eos # (Auto) 0.19 (0-0.5) Absolute Lymphs (auto) 2.22 (1.0-4.6) Absolute Monos (auto) 0.31 (0.0-1.3) Lymphocytes % 42.9 (24.0-44.0) % Monocytes % 6.0 (0.0-12.0) % Eosinophils % 3.7 (0.00-5.0) % Basophils % 0.8 (0.0-0.4) % Absolute Granulocytes 2.42 (1.4-6.9) Basophils # 0.04 (0-0.4) Sodium 136 L (137-145) mmol/L Potassium 4.1 (3.5-5.1) mmol/L Chloride 101 (98-107) mmol/L Carbon Dioxide 26 (22-30) mmol/L Anion Gap 12.2 (5-15) MEQ/L BUN 12 (7-17) mg/dL Creatinine 0.37 L (0.52-1.04) mg/dL Estimated GFR > 60.0 ML/MIN Glucose 274 H (74-106) mg/dL Calcium 8.7 (8.4-10.2) mg/dL Total Bilirubin 0.50 (0.2-1.3) mg/dL AST 18 (14-36) U/L ALT 17 (0-35) U/L Alkaline Phosphatase 71 (38-126) U/L Serum Total Protein 6.3 (6.3-8.2) g/dL Albumin 3.2 L (3.5-5.0) g/dL Micro Results-Entire Visit: Microbiology 09/18/18 17:59 Abscess Culture - Final Labia - Right Inner Labia Streptococcus Agalactiae 09/17/18 18:25 Blood Culture - Preliminary Blood NO GROWTH TO DATE 09/17/18 18:15 Blood Culture - Preliminary Blood NO GROWTH TO DATE Accuchecks Date 09/20/18 Date 09/20/18 Date 09/20/18 Time 20:00 Time 16:30 Time 11:30 Accucheck Value: 273 Accucheck Value: 136 Accucheck Value: 241 - Procedures and Test Procedures and Tests throughout Hospitalization: Therapy Orders & Screens 09/18/18 19:17 Incentive Spirometry UD Comment: post op Diagnosis: labia abscess, hyperglycemia, positive test Discharge Exam General Appearance: no apparent distress, alert Respiratory Exam: normal breath sounds, lungs clear, No respiratory distress Cardiovascular Exam: regular rate/rhythm, normal heart sounds Gastrointestinal/Abdomen Exam: soft, No tenderness, No mass Extremity Exam: other (packing in place to right labia, mild induration. redness and induration dramatically improved since I and D) Final Diagnosis/Problem List - Final Discharge Diagnosis/Problem (1) Labial abscess Current Visit: Yes Status: Acute Onset Date: ~09/17/18 Assessment & Plan: home on po levaquin, strep ag. on culture sensitive to levaquin (2) Type 2 diabetes mellitus, uncontrolled Current Visit: Yes Status: Acute Assessment & Plan: change to novolin mix due to cost - Discharge Disposition: Home, Self-Care Condition: Good Prescriptions: New Syrge-Ndl,Ins 0.3 ml Half Santana [Insulin Syringe] 1 each SQ BID #100 disp.syrin Levofloxacin [Levaquin] 500 mg PO DAILY #7 tablet Hydrocodone/APAP 5-325 Tab^^^ [[place] 5-325 Tablet^^^] 1 each PO Q6HPRN PRN # 28 tablet MDD 4 PRN Reason: Pain Insulin NPH/Reg 70/30 [Novolin 70/30] 30 unit SQ BIDAC #3 vial Continue Metformin HCl 500 mg [Glucophage 500 MG] 500 mg PO BIDWM Discontinued Insulin Aspart [Novolog] 30 units SQ AC Additional Instructions: followup with therapy for wound care, stay off work at this time. f/u with Dr Espino next week. take novolin mix 30 units bid, check blood sugar tid and bring log to appointment in 1 week Follow up with: MILO ESPINO MD [Primary Care Provider] - 1 Week
[2018-09-21] MEDS: NORCO 5/325 MG PO PRN (08:40)
[2018-09-21] MEDS: Novolin 70/30 SQ SCH (09:17)
[2018-09-21] MEDS: Glucophage 500 MG PO SCH (09:19)
[2018-09-21] MEDS: NovoLOG Insulin SQ SCH (10:07)
== END 2018-09-21 11:47 | disposition home or self-care (01) ==
LOC: ED 17:29 → MED SURG 20:00
PROVIDERS: ADMIT Family Medicine; ATTEND Family Medicine
DX: N76.4 Abscess of vulva (principal); E11.65 Type 2 diabetes mellitus with hyperglycemia; Z32.02 Encounter for pregnancy test, result negative; Z79.4 Long term (current) use of insulin
CPT/HCPCS: 36415; 56405; 76801; 80048; 80053; 81025; 82962; 83036; 85025; 87040; 87070; 87077; 87186; 93268; 94762; 96360; 96365; 99285; G0378; 84702; J1815; J2250; J2270; J2405; J2704; J3010; A9270-GY

== ENCOUNTER 2020-10-27 04:01 | Inpatient (IN) | payer OTHER ==
[2020-10-27] MEDS ORDERED: Sodium Chloride 0.9% 1000 ML 1,000 ML IV STA ×2 (04:03→04:11)
[2020-10-27] MEDS ORDERED: HUMULIN R IV ONE (04:08)
[2020-10-27] MEDS ORDERED: HUMULIN R 100 UNIT in Sodium Chloride 0.9% 100 ML IVPB 100 ML IV PRN (04:08)
[2020-10-27] MEDS ORDERED: Sodium Chloride 0.9% 1000 ML 1,000 ML ONE ×3 (04:28→07:35)
[2020-10-27 04:29] LABS: VBG BASE EXCESS -28.7 (-2.0-2.0); VBG CARBOXYHEMOGLOBIN 2.3 % T HGB (0.0-6.9); VBG HCO3- 3.7 meq/L (22-28); VBG HEMOGLOBIN 14.9; VBG O2 SATURATION 88.9 (95-100); VBG pH 6.87 (7.32-7.42)
[2020-10-27 04:30] LABS: VBG POTASSIUM 6.1 (3.5-5.1)
[2020-10-27] MEDS ORDERED: HUMULIN R ONE ×2 (04:34→05:01)
[2020-10-27 04:44] LABS: Hemoglobin 14.3 gm/dl (12.0-16.0); Mean Cell Volume 91.3 fl (78-100); Mean Corpuscular Hgb Concent. 31.8 g/dl (32-36); Mean Platelet Volume 10.9 fl (7.5-11.0); Platelet Count 516 K/mm3 (150-450); Red Blood Count 4.93 M/mm3 (4.1-5.4); Red Cell Distribution Width 13.5 % (11.5-14.0); White Blood Count 17.1 K/mm3 (4.0-10.5)
[2020-10-27 04:54] LABS: ALBUMIN 4.6 g/dL (3.5-5.0); ALKALINE PHOSPHATASE 159 U/L (38-126); BLOOD UREA NITROGEN 12 mg/dL (7-17); CHLORIDE 107 mmol/L (98-107); Calcium 9.3 mg/dL (8.4-10.2); Creatinine 1 0.79 mg/dL (0.52-1.04); EST GLOMERULAR FILTRATION RATE > 60.0 ML/MIN; MAGNESIUM 2.1 mg/dL (1.6-2.3); SGOT/AST 20 U/L (14-36); SGPT/ALT 16 U/L (0-35); SODIUM 136 mmol/L (137-145); Total Protein 8.9 g/dL (6.3-8.2)
[2020-10-27 04:56] LABS: Potassium 5.8 mmol/L (3.5-5.1)
[2020-10-27] MEDS ORDERED: SODIUM BICARBONATE 50 MEQ/50 ML ABBOJECT IV ONE ×2 (04:57→05:04)
[2020-10-27] MEDS: HUMULIN R 100 UNIT in Sodium Chloride 0.9% 100 ML IVPB 100 ML IV PRN ×3 (05:00→21:05)
[2020-10-27] MEDS ORDERED: Sodium Chloride 0.9% 100 ML IVPB 100 ML IV ONE (05:01)
[2020-10-27 05:04] LABS: Appearance SLIGHTLY CLOUDY (CLEAR); Bilirubin NEGATIVE (NEGATIVE); Blood LARGE Ery/ul (0-5); Epithelial Cells RARE /HPF (FEW); Glucose >=500 mg/dL (NEGATIVE); Ketones MODERATE (NEGATIVE); Leukocyte Esterase NEGATIVE (NEGATIVE); Mucus SLIGHT /HPF (NEGATIVE); Nitrite NEGATIVE (NEGATIVE); Protein,Urine Dip 100 (Negative); Specific Gravity 1.018 (1.005-1.025); Urobilinogen NEGATIVE mg/dL (0-1)
[2020-10-27 05:06] LABS: RBC >101 /HPF (0-2)
[2020-10-27 05:10] LABS: Glucose 526 mg/dL (74-106)
[2020-10-27 05:11] LABS: Carbon Dioxide < 5 mmol/L (22-30)
--- NOTE | 2020-10-27 05:28 | ERPHSYRPT ---
- History of Present Illness Time Seen by Provider: 10/27/20 04:25 Source: patient Exam Limitations: no limitations Patient Subjective Stated Complaint: EMS brought patient and stated they were called to patient's residence for SOB. Triage Nursing Assessment: Patient arrived to ED via ambulance and 3 EMS personel. Patient assisted to bed times 3 assist. Patient A/O times 4. Patient answers questions after several times asking the question. Follows directions with encouragement. Lungs clear bilateral A/P thorughout. 02 sat 100% upon arrival with 02 at 4L per N/C. RN decreased 02 to 2L per N/C 02 sat remained at 100%. Patient noted to be mouth breathing. Patient with fast, non-labored breathing. Cap refill < 3 seconds. BS upon arrival 443. Patient hasn't taken insulin or meds in last couple of days. RN asked patient what insulin she took and patient just states " I don't know" upon looking upon external med HX and asking patient then she stated she took Novolog 30U before each meal but she hasn't taken any in last couple of days. Patiet stated she hasn't taken BS in last couple of days either. Patient stated she hasn't ate anything in last couple of days and has N/V over last couple of days. Patient with + BS times 4 quads. ABD large, obese, non-distended. Patient denies any pain or discomfort upon palpitation. + radial and pedal pulses noted bilateral. No dependent edema noted. Patient ROM WNL. Bilateral hand media sales consultant weak and equal. Bilateral pupils brisk and reactive. No neuro deficits noted. Patient states she is having pain under bilateral breast in rib cage. Patient denies any cough. Patient denies any sputum production. Physician History: Patient is a 45-year-old white female who presents with a complaint of shortness of breath. She also has been very dizzy she has had nothing to eat for 2 days and her blood sugar per EMS was 356. She denies any previous history of DKA. Timing/Duration: day(s) (3) Severity: severe Associated Symptoms: nausea, vomiting, abdominal pain Allergies/Adverse Reactions: latex Allergy (Intermediate, Verified 10/27/20 04:20) Rash Home Medications: Insulin Aspart [Novolog] 30 unit SQ TIDWMEALS 10/27/20 [History] Levothyroxine Sodium [Levothyroxine] 25 mcg PO DAILY 10/27/20 [History] Hx Tetanus, Diphtheria Vaccination/Date Given: No Hx Influenza Vaccination/Date Given: Yes Hx Pneumococcal Vaccination/Date Given: No Immunizations Up to Date: Yes Travel Risk - International Travel Have you traveled outside of the country in past 3 weeks: No - Coronavirus Screening Are you exhibiting any of the following symptoms?: Yes Symptoms: Shortness of Breath, Vomiting/Diarrhea, Headaches/Body Aches/Fatigue Close contact with a COVID-19 positive Pt in past 14-21 Days: No - Review of Systems Constitutional: Fatigue, Lethargy, Malaise, Weakness, No Fever, No Chills Eyes: No Symptoms Ears, Nose, & Throat: No Symptoms Respiratory: Dyspnea Cardiac: Palpitations Abdominal/Gastrointestinal: Abdominal Pain, Nausea, Vomiting Genitourinary Symptoms: No Dysuria Musculoskeletal: No Back Pain, No Neck Pain Skin: No Rash Neurological: Dizziness Psychological: No Symptoms Endocrine: Polyuria Hematologic/Lymphatic: No Symptoms Immunological/Allergic: No Symptoms - Past Medical History Pertinent Past Medical History: Yes Neurological History: No Pertinent History ENT History: No Pertinent History Cardiac History: No Pertinent History Respiratory History: Bronchitis Endocrine Medical History: Diabetes Type II Musculoskeletal History: Arthritis GI Medical History: Hemorrhoids History: No Pertinent History Psycho-Social History: No Pertinent History Female Reproductive Disorders: No Pertinent History - Past Surgical History Past Surgical History: Yes Neuro Surgical History: No Pertinent History Cardiac: No Pertinent History Respiratory: No Pertinent History Gastrointestinal: No Pertinent History Genitourinary: No Pertinent History Musculoskeletal: No Pertinent History Female Surgical History: Section Other Surgical History: I & D labial abcess - Social History Smoking Status: Former smoker How long have you smoked: 14 Exposure to second hand smoke: No Drug Use: none Patient Lives Alone: No - Female History Hx Last Menstrual Period: 10/27/20 Hx Now: No - Nursing Vital Signs Nursing Vital Signs: Initial Vital Signs Temperature 97.9 F 10/27/20 04:12 Pulse Rate 118 H 10/27/20 04:12 Respiratory Rate 24 10/27/20 04:12 Blood Pressure 172/85 10/27/20 04:12 O2 Sat by Pulse Oximetry 100 10/27/20 04:12 Pain Scale Pain Intensity 8 - Physical Exam General Appearance: moderate distress, lethargy Eye Exam: PERRL/EOMI, eyes nml inspection Ears, Nose, Throat Exam: dry mucous membranes Neck Exam: normal inspection, non-tender, supple Respiratory Exam: normal breath sounds, lungs clear, No respiratory distress Cardiovascular Exam: normal heart sounds, tachycardia Gastrointestinal/Abdomen Exam: soft, tenderness Pelvic Exam: not done Rectal Exam: deferred Back Exam: normal inspection, normal range of motion Extremity Exam: normal inspection, normal range of motion, pelvis stable Neurologic Exam: alert, oriented x 3, cooperative, depressed mood/affect Skin Exam: normal color, warm, dry SpO2 Interpretation: normal SpO2: 100 O2 Delivery: Room Air - Course Nursing assessment & vital signs reviewed: Yes EKG Interpreted by Me: RATE ([id number]), Sinus Tach, Left Una Deviation, prolonged QT interval, Non-specific ST Changes - Radiology Exams Chest X-ray Interpretation: Interpreted by me, Other (Patient of the right hemidiaphragm otherwise no acute processes identified) Ordered Tests: Active Orders 24 hr Category Date Time Status Capsule Maker STAT Care 10/27/20 04:04 Active EKG-ER Only STAT Care 10/27/20 04:03 Active IV Insertion STAT Care 10/27/20 04:03 Active POCT Glucose Check STAT Care 10/27/20 04:03 Active Pulse Oximetry (ED) STAT Care 10/27/20 04:03 Active CHEST 1 VIEW (PORTABLE) Stat Exams 10/27/20 04:03 Taken BLOOD CULTURE Stat Lab 10/27/20 04:35 Received CBC W DIFF Stat Lab 10/27/20 04:20 Completed CMP Stat Lab 10/27/20 04:20 Completed CULTURE,URINE Stat Lab 10/27/20 04:56 Received HCG,QUALITATIVE URINE Stat Lab 10/27/20 04:56 Completed Lactic Acid Urgent Lab 10/27/20 04:20 Completed MAGNESIUM Stat Lab 10/27/20 04:20 Completed Manual Differential NC Stat Lab 10/27/20 04:20 Completed POCT GLUCOSE Stat Lab 10/27/20 04:07 Completed TROPONIN Q3H Lab 10/27/20 04:20 Completed TROPONIN Q3H Lab 10/27/20 07:15 Ordered TROPONIN Q3H Lab 10/27/20 10:15 Ordered TROPONIN Q3H Lab 10/27/20 13:15 Ordered TROPONIN Q3H Lab 10/27/20 16:15 Ordered TROPONIN Q3H Lab 10/27/20 19:15 Ordered TROPONIN Q3H Lab 10/27/20 22:15 Ordered UA W/RFX UR CULTURE Stat Lab 10/27/20 04:56 Completed VBG [VENOUS BLOOD GAS] Stat Lab 10/27/20 04:20 Completed Medication Summary Generic Name Dose Route Start Last Admin Trade Name Thu PRN Reason Stop Dose Admin Insulin Human Regular 100 unit 100 mls @ 0 mls/hr 10/27/20 04:08 / Sodium Chloride IV 11/26/20 04:07 .Q0M PRN DKA/HYPERGLYCEMIA Protocol 0.1 UNIT/KG/HR Insulin Human Regular 100 unit 100 mls @ 13.154 mls/hr 10/27/20 04:53 10/27/20 05:00 / Sodium Chloride IV 11/26/20 04:52 0.1 unit/kg/hr .Q7H37M PRN 13.154 mls/hr DKA/HYPERGLYCEMIA Administration Protocol 0.1 UNIT/KG/HR Discontinued Medications Generic Name Dose Route Start Last Admin Trade Name Thu PRN Reason Stop Dose Admin Sodium Chloride 1,000 mls @ 999 mls/hr 10/27/20 04:03 10/27/20 04:29 Sodium Chloride 0.9% 1000 Ml IV 10/27/20 05:03 999 mls/hr .Q1H1M STA Administration Sodium Chloride 1,000 mls @ 999 mls/hr 10/27/20 04:11 Sodium Chloride 0.9% 1000 Ml IV 10/27/20 05:11 .Q1H1M STA Sodium Chloride Confirm 10/27/20 04:28 Sodium Chloride 0.9% 1000 Ml Administered 10/27/20 04:29 Dose 1,000 mls @ ud .ROUTE .STK-MED ONE Sodium Chloride Confirm 10/27/20 05:01 Sodium Chloride 0.9% 100 Ml Ivpb Administered 10/27/20 05:02 Dose 100 mls @ ud IV .STK-MED ONE Insulin Human Regular 5 unit 10/27/20 04:08 10/27/20 04:33 Humulin R IV 10/27/20 04:09 5 unit STAT ONE Administration Insulin Human Regular Confirm 10/27/20 04:34 Humulin R Administered 10/27/20 04:35 Dose 5 unit .ROUTE .STK-MED ONE Insulin Human Regular Confirm 10/27/20 05:01 Humulin R Administered 10/27/20 05:02 Dose 100 unit .ROUTE .STK-MED ONE Sodium Bicarbonate 50 meq 10/27/20 04:57 10/27/20 05:05 Sodium Bicarbonate 50 Meq/50 Ml Abboject IV 10/27/20 04:58 50 meq STAT ONE Administration Sodium Bicarbonate Confirm 10/27/20 05:04 Sodium Bicarbonate 50 Meq/50 Ml Abboject Administered 10/27/20 05:05 Dose 50 meq IV .STK-MED ONE Lab/Rad Data: Laboratory Result Diagrams 10/27/20 04:20 10/27/20 04:20 Laboratory Results 10/27/20 10/27/20 10/27/20 Range/Units 04:56 04:56 04:20 WBC (4.0-10.5) K/mm3 RBC (4.1-5.4) M/mm3 Hgb (12.0-16.0) gm/dl Hct (35-47) % MCV (78-100) fl MCH (26-32) pg MCHC (32-36) g/dl RDW (11.5-14.0) % Plt Count (150-450) K/mm3 MPV (7.5-11.0) fl pO2/FiO2 Ratio 28.0 % VBG pH 6.87 L* (7.32-7.42) VBG pCO2 at Pat Temp 20 L* (42-55) mm/Hg VBG pO2 at Pat Temp 64 H (25-40) mm/Hg VBG HCO3 3.7 L* (22-28) meq/L VBG O2 Sat (Tay) 88.9 L (95-100) VBG Base Excess -28.7 L (-2.0-2.0) VBG Hemoglobin 14.9 VBG Carboxyhemoglobin 2.3 (0.0-6.9) % T HGB POC Potassium 6.1 H* (3.5-5.1) Sodium (137-145) mmol/L Potassium (3.5-5.1) mmol/L Chloride (98-107) mmol/L Carbon Dioxide (22-30) mmol/L BUN (7-17) mg/dL Creatinine (0.52-1.04) mg/dL Estimated GFR ML/MIN Glucose (74-106) mg/dL POC Glucometer (74 to 106) mg/dL Lactic Acid (0.4-2.0) Calcium (8.4-10.2) mg/dL Magnesium (1.6-2.3) mg/dL Total Bilirubin (0.2-1.3) mg/dL AST (14-36) U/L ALT (0-35) U/L Alkaline Phosphatase (38-126) U/L Troponin I (0.000-0.034) ng/mL Serum Total Protein (6.3-8.2) g/dL Albumin (3.5-5.0) g/dL Urine Color YELLOW (YELLOW) Urine Appearance SLIGHTLY CLOUDY (CLEAR) Urine pH 5.0 (5-6) Ur Specific [place] 1.018 (1.005-1.025) Urine Protein 100 (Negative) Urine Ketones MODERATE (NEGATIVE) Urine Blood LARGE (0-5) Kade/ul Urine Nitrite NEGATIVE (NEGATIVE) Urine Bilirubin NEGATIVE (NEGATIVE) Urine Urobilinogen NEGATIVE (0-1) mg/dL Ur Leukocyte Esterase NEGATIVE (NEGATIVE) Urine WBC (Auto) 16-25 (0-5) /HPF Urine RBC (Auto) >101 (0-2) /HPF U Epithel Cells (Auto) RARE (FEW) /HPF Urine Bacteria (Auto) NONE (NEGATIVE) /HPF Urine Mucus (Auto) SLIGHT (NEGATIVE) /HPF Urine Culture Reflexed YES (NO) Urine Glucose >=500 (NEGATIVE) mg/dL Urine HCG, Qual NEGATIVE (Negative) 10/27/20 10/27/20 10/27/20 Range/Units 04:20 04:20 04:20 WBC (4.0-10.5) K/mm3 RBC (4.1-5.4) M/mm3 Hgb (12.0-16.0) gm/dl Hct (35-47) % MCV (78-100) fl MCH (26-32) pg MCHC (32-36) g/dl RDW (11.5-14.0) % Plt Count (150-450) K/mm3 MPV (7.5-11.0) fl pO2/FiO2 Ratio % VBG pH (7.32-7.42) VBG pCO2 at Pat Temp (42-55) mm/Hg VBG pO2 at Pat Temp (25-40) mm/Hg VBG HCO3 (22-28) meq/L VBG O2 Sat (Tay) (95-100) VBG Base Excess (-2.0-2.0) VBG Hemoglobin VBG Carboxyhemoglobin (0.0-6.9) % T HGB POC Potassium (3.5-5.1) Sodium 136 L (137-145) mmol/L Potassium 5.8 H (3.5-5.1) mmol/L Chloride 107 (98-107) mmol/L Carbon Dioxide < 5 L* (22-30) mmol/L BUN 12 (7-17) mg/dL Creatinine 0.79 (0.52-1.04) mg/dL Estimated GFR > 60.0 ML/MIN Glucose 526 H* (74-106) mg/dL POC Glucometer (74 to 106) mg/dL Lactic Acid 3.4 H (0.4-2.0) Calcium 9.3 (8.4-10.2) mg/dL Magnesium 2.1 (1.6-2.3) mg/dL Total Bilirubin 0.40 (0.2-1.3) mg/dL AST 20 (14-36) U/L ALT 16 (0-35) U/L Alkaline Phosphatase 159 H (38-126) U/L Troponin I < 0.012 (0.000-0.034) ng/mL Serum Total Protein 8.9 H (6.3-8.2) g/dL Albumin 4.6 (3.5-5.0) g/dL Urine Color (YELLOW) Urine Appearance (CLEAR) Urine pH (5-6) Ur Specific [place] (1.005-1.025) Urine Protein (Negative) Urine Ketones (NEGATIVE) Urine Blood (0-5) Kade/ul Urine Nitrite (NEGATIVE) Urine Bilirubin (NEGATIVE) Urine Urobilinogen (0-1) mg/dL Ur Leukocyte Esterase (NEGATIVE) Urine WBC (Auto) (0-5) /HPF Urine RBC (Auto) (0-2) /HPF U Epithel Cells (Auto) (FEW) /HPF Urine Bacteria (Auto) (NEGATIVE) /HPF Urine Mucus (Auto) (NEGATIVE) /HPF Urine Culture Reflexed (NO) Urine Glucose (NEGATIVE) mg/dL Urine HCG, Qual (Negative) 10/27/20 10/27/20 Range/Units 04:20 04:07 WBC 17.1 H (4.0-10.5) K/mm3 RBC 4.93 (4.1-5.4) M/mm3 Hgb 14.3 (12.0-16.0) gm/dl Hct 45.0 (35-47) % MCV 91.3 (78-100) fl MCH 29.0 (26-32) pg MCHC 31.8 L (32-36) g/dl RDW 13.5 (11.5-14.0) % Plt Count 516 H (150-450) K/mm3 MPV 10.9 (7.5-11.0) fl pO2/FiO2 Ratio % VBG pH (7.32-7.42) VBG pCO2 at Pat Temp (42-55) mm/Hg VBG pO2 at Pat Temp (25-40) mm/Hg VBG HCO3 (22-28) meq/L VBG O2 Sat (Tay) (95-100) VBG Base Excess (-2.0-2.0) VBG Hemoglobin VBG Carboxyhemoglobin (0.0-6.9) % T HGB POC Potassium (3.5-5.1) Sodium (137-145) mmol/L Potassium (3.5-5.1) mmol/L Chloride (98-107) mmol/L Carbon Dioxide (22-30) mmol/L BUN (7-17) mg/dL Creatinine (0.52-1.04) mg/dL Estimated GFR ML/MIN Glucose (74-106) mg/dL POC Glucometer 443 H (74 to 106) mg/dL Lactic Acid (0.4-2.0) Calcium (8.4-10.2) mg/dL Magnesium (1.6-2.3) mg/dL Total Bilirubin (0.2-1.3) mg/dL AST (14-36) U/L ALT (0-35) U/L Alkaline Phosphatase (38-126) U/L Troponin I (0.000-0.034) ng/mL Serum Total Protein (6.3-8.2) g/dL Albumin (3.5-5.0) g/dL Urine Color (YELLOW) Urine Appearance (CLEAR) Urine pH (5-6) Ur Specific [place] (1.005-1.025) Urine Protein (Negative) Urine Ketones (NEGATIVE) Urine Blood (0-5) Kade/ul Urine Nitrite (NEGATIVE) Urine Bilirubin (NEGATIVE) Urine Urobilinogen (0-1) mg/dL Ur Leukocyte Esterase (NEGATIVE) Urine WBC (Auto) (0-5) /HPF Urine RBC (Auto) (0-2) /HPF U Epithel Cells (Auto) (FEW) /HPF Urine Bacteria (Auto) (NEGATIVE) /HPF Urine Mucus (Auto) (NEGATIVE) /HPF Urine Culture Reflexed (NO) Urine Glucose (NEGATIVE) mg/dL Urine HCG, Qual (Negative) - Progress Progress: improved Discussed with : Siria Will see patient in: hospital (full admit) - Departure Departure Disposition: In-patient Admission Clinical Impression: DKA (diabetic ketoacidoses) Condition: Critical Critical Care Time: Yes Critical Care Time(excluding separately billable procedures): Critical 30-74 mins Referrals: MILO ESPINO MD [Primary Care Provider] -
[2020-10-27 06:06] LABS: ANISOCYTOSIS 1+; BAND 7 % (0.0-2.0); Eosinophil 1 % (0.00-3.0); Lymphocytes 3 % (24-44); Monocyte 4 % (0.0-12.0); Neutrophils 85 % (36.0-66.0); Platelet Estimate NORMAL (NORMAL); Poikilocytosis 1+; Polychromasia 1+; Total Cells Counted 100
[2020-10-27 06:21] LABS: INFLUENZA A NEGATIVE (NEGATIVE); INFLUENZA B NEGATIVE (NEGATIVE); RESPIRATORY SYNCTIAL VIRUS NEGATIVE (Negative)
[2020-10-27] MEDS: Sodium Chloride 0.9% 1000 ML 1,000 ML IV SCH ×3 (08:13→13:10)
[2020-10-27 08:32] LABS: BLOOD UREA NITROGEN 11 mg/dL (7-17); CHLORIDE 112 mmol/L (98-107); Calcium 8.4 mg/dL (8.4-10.2); Creatinine 1 0.71 mg/dL (0.52-1.04); EST GLOMERULAR FILTRATION RATE > 60.0 ML/MIN; Glucose 377 mg/dL (74-106); PHOSPHOROUS 4.5 mg/dL (2.5-4.5); Potassium 4.4 mmol/L (3.5-5.1); SODIUM 141 mmol/L (137-145)
--- NOTE | 2020-10-27 08:51 | XRAY ---
Indication: Short of breath. Diabetic ketoacidosis. Comparison: None Portable chest clear with incidental right hemidiaphragm elevation. Heart is not enlarged. Bony thorax intact.
[2020-10-27 09:10] LABS: Carbon Dioxide < 5 mmol/L (22-30)
--- NOTE | 2020-10-27 09:23 | PCM.HP ---
History of Present Illness - Chief Complaint Chief Complaint: DKA History of Present Illness: is a 45 year old female with insulin dependant diabetes, she has been ill and had nausea, vomiting and abdominal pain for the last 2 days. She has been unable to tolerate any po intake so stopped her insulin and has not been monitoring her blood sugars, has never had DKA, has been treated as a type 2 diabetic previously. She reports her nausea and vomiting have stopped, she currently has no pain. She also has been short of breath, no cough. - Review of Systems Constitutional: Weakness, No Fever, No Chills Respiratory: Short Of Breath, No Cough Cardiac: No Chest Pain, No Edema, No Syncope Abdominal/Gastrointestinal: Abdominal Pain, Nausea, Vomiting, No Diarrhea, No Constipation Genitourinary Symptoms: No Dysuria Skin: No Rash Neurological: No Dizziness, No Focal Weakness, No Sensory Changes All Other Systems: Reviewed and Negative Medications & Allergies Home Medications: Home Medication List Insulin Aspart [Novolog] 50 unit SQ TIDWMEALS 10/27/20 [History Confirmed 10/27/20] Levothyroxine Sodium [Levothyroxine] 25 mcg PO DAILY 10/27/20 [History Confirmed 10/27/20] Allergies/Adverse Reactions: Allergies Allergy/AdvReac Type Severity Reaction Status Date / Time latex Allergy Intermediate Rash Verified 10/27/20 04:20 - Past Medical History Past Medical History: Yes Neurological History: No Pertinent History ENT History: No Pertinent History Cardiac History: No Pertinent History Respiratory History: Bronchitis Endocrine Medical History: Diabetes Type II Musculoskelatal History: Arthritis GI Medical History: Hemorrhoids History: No Pertinent History Pyscho-Social History: No Pertinent History Reproductive Disorders: No Pertinent History - Female History Hx Last Menstrual Period: 10/27/20 Are you now?: No - Past Surgical History Past Surgical History: Yes Neuro Surgical History: No Pertinent History Cardiac History: No Pertinent History Respiratory Surgery: No Pertinent History GI Surgical History: No Pertinent History Genitourinary Surgical Hx: No Pertinent History Musculskeletal Surgical Hx: No Pertinent History Female Surgical History: Section Other Surgical History: I & D labial abcess - Social History Smoking Status: Unknown if ever smoked How long have you smoked: 14 Exposure to second hand smoke: No Alcohol: None Drug Use: none - Physical Exam Vital Signs: Vital Signs - 24 hr Temp Pulse Resp BP Pulse Ox 10/27/20 07:48 122 H 28 H 165/88 100 10/27/20 07:00 123 H 22 148/78 100 10/27/20 06:00 121 H 25 H 126/97 100 10/27/20 05:32 100 10/27/20 05:02 119 H 24 176/76 100 10/27/20 04:31 24 100 10/27/20 04:12 97.9 F 118 H 24 172/85 100 General Appearance: mild distress, obese Neurologic Exam: alert, oriented x 3, cooperative Respiratory Exam: normal breath sounds, lungs clear, No respiratory distress Cardiovascular Exam: regular rate/rhythm, normal heart sounds, normal peripheral pulses Gastrointestinal/Abdomen Exam: soft, normal bowel sounds, No tenderness, No mass Extremity Exam: normal inspection, normal range of motion, pelvis stable Skin Exam: normal color, warm, dry, No rash Results - Labs Lab/Micro Results: Lab Results-Last 24 Hours 10/27/20 10/27/20 10/27/20 Range/Units 04:07 04:20 04:20 WBC 17.1 H (4.0-10.5) K/mm3 RBC 4.93 (4.1-5.4) M/mm3 Hgb 14.3 (12.0-16.0) gm/dl Hct 45.0 (35-47) % MCV 91.3 (78-100) fl MCH 29.0 (26-32) pg MCHC 31.8 L (32-36) g/dl RDW 13.5 (11.5-14.0) % Plt Count 516 H (150-450) K/mm3 MPV 10.9 (7.5-11.0) fl Segmented Neutrophils 85 H (36.0-66.0) % Band Neutrophils 7 H (0.0-2.0) % Lymphocytes (Manual) 3 L (24-44) % Monocytes (Manual) 4 (0.0-12.0) % Eosinophils (Manual) 1 (0.00-3.0) % Platelet Estimate NORMAL (NORMAL) RBC Morphology ABNORMAL Polychromasia 1+ Poikilocytosis 1+ Anisocytosis 1+ pO2/FiO2 Ratio % VBG pH (7.32-7.42) VBG pCO2 at Pat Temp (42-55) mm/Hg VBG pO2 at Pat Temp (25-40) mm/Hg VBG HCO3 (22-28) meq/L VBG O2 Sat (Tay) (95-100) VBG Base Excess (-2.0-2.0) VBG Hemoglobin VBG Carboxyhemoglobin (0.0-6.9) % T HGB POC Potassium (3.5-5.1) Sodium 136 L (137-145) mmol/L Potassium 5.8 H (3.5-5.1) mmol/L Chloride 107 (98-107) mmol/L Carbon Dioxide < 5 L* (22-30) mmol/L BUN 12 (7-17) mg/dL Creatinine 0.79 (0.52-1.04) mg/dL Estimated GFR > 60.0 ML/MIN Glucose 526 H* (74-106) mg/dL POC Glucometer 443 H (74 to 106) mg/dL Lactic Acid (0.4-2.0) Calcium 9.3 (8.4-10.2) mg/dL Phosphorus (2.5-4.5) mg/dL Magnesium 2.1 (1.6-2.3) mg/dL Total Bilirubin 0.40 (0.2-1.3) mg/dL AST 20 (14-36) U/L ALT 16 (0-35) U/L Alkaline Phosphatase 159 H (38-126) U/L Troponin I (0.000-0.034) ng/mL Serum Total Protein 8.9 H (6.3-8.2) g/dL Albumin 4.6 (3.5-5.0) g/dL Urine Color (YELLOW) Urine Appearance (CLEAR) Urine pH (5-6) Ur Specific [place] (1.005-1.025) Urine Protein (Negative) Urine Ketones (NEGATIVE) Urine Blood (0-5) Kade/ul Urine Nitrite (NEGATIVE) Urine Bilirubin (NEGATIVE) Urine Urobilinogen (0-1) mg/dL Ur Leukocyte Esterase (NEGATIVE) Urine WBC (Auto) (0-5) /HPF Urine RBC (Auto) (0-2) /HPF U Epithel Cells (Auto) (FEW) /HPF Urine Bacteria (Auto) (NEGATIVE) /HPF Urine Mucus (Auto) (NEGATIVE) /HPF Urine Culture Reflexed (NO) Urine Glucose (NEGATIVE) mg/dL Urine HCG, Qual (Negative) Influenza Type A Ag (NEGATIVE) Influenza Type B Ag (NEGATIVE) RSV (PCR) (Negative) SARS-CoV-2 (PCR) (NEGATIVE) 10/27/20 10/27/20 10/27/20 Range/Units 04:20 04:20 04:20 WBC (4.0-10.5) K/mm3 RBC (4.1-5.4) M/mm3 Hgb (12.0-16.0) gm/dl Hct (35-47) % MCV (78-100) fl MCH (26-32) pg MCHC (32-36) g/dl RDW (11.5-14.0) % Plt Count (150-450) K/mm3 MPV (7.5-11.0) fl Segmented Neutrophils (36.0-66.0) % Band Neutrophils (0.0-2.0) % Lymphocytes (Manual) (24-44) % Monocytes (Manual) (0.0-12.0) % Eosinophils (Manual) (0.00-3.0) % Platelet Estimate (NORMAL) RBC Morphology Polychromasia Poikilocytosis Anisocytosis pO2/FiO2 Ratio 28.0 % VBG pH 6.87 L* (7.32-7.42) VBG pCO2 at Pat Temp 20 L* (42-55) mm/Hg VBG pO2 at Pat Temp 64 H (25-40) mm/Hg VBG HCO3 3.7 L* (22-28) meq/L VBG O2 Sat (Tay) 88.9 L (95-100) VBG Base Excess -28.7 L (-2.0-2.0) VBG Hemoglobin 14.9 VBG Carboxyhemoglobin 2.3 (0.0-6.9) % T HGB POC Potassium 6.1 H* (3.5-5.1) Sodium (137-145) mmol/L Potassium (3.5-5.1) mmol/L Chloride (98-107) mmol/L Carbon Dioxide (22-30) mmol/L BUN (7-17) mg/dL Creatinine (0.52-1.04) mg/dL Estimated GFR ML/MIN Glucose (74-106) mg/dL POC Glucometer (74 to 106) mg/dL Lactic Acid 3.4 H (0.4-2.0) Calcium (8.4-10.2) mg/dL Phosphorus (2.5-4.5) mg/dL Magnesium (1.6-2.3) mg/dL Total Bilirubin (0.2-1.3) mg/dL AST (14-36) U/L ALT (0-35) U/L Alkaline Phosphatase (38-126) U/L Troponin I < 0.012 (0.000-0.034) ng/mL Serum Total Protein (6.3-8.2) g/dL Albumin (3.5-5.0) g/dL Urine Color (YELLOW) Urine Appearance (CLEAR) Urine pH (5-6) Ur Specific [place] (1.005-1.025) Urine Protein (Negative) Urine Ketones (NEGATIVE) Urine Blood (0-5) Kade/ul Urine Nitrite (NEGATIVE) Urine Bilirubin (NEGATIVE) Urine Urobilinogen (0-1) mg/dL Ur Leukocyte Esterase (NEGATIVE) Urine WBC (Auto) (0-5) /HPF Urine RBC (Auto) (0-2) /HPF U Epithel Cells (Auto) (FEW) /HPF Urine Bacteria (Auto) (NEGATIVE) /HPF Urine Mucus (Auto) (NEGATIVE) /HPF Urine Culture Reflexed (NO) Urine Glucose (NEGATIVE) mg/dL Urine HCG, Qual (Negative) Influenza Type A Ag (NEGATIVE) Influenza Type B Ag (NEGATIVE) RSV (PCR) (Negative) SARS-CoV-2 (PCR) (NEGATIVE) 10/27/20 10/27/20 10/27/20 Range/Units 04:56 04:56 05:41 WBC (4.0-10.5) K/mm3 RBC (4.1-5.4) M/mm3 Hgb (12.0-16.0) gm/dl Hct (35-47) % MCV (78-100) fl MCH (26-32) pg MCHC (32-36) g/dl RDW (11.5-14.0) % Plt Count (150-450) K/mm3 MPV (7.5-11.0) fl Segmented Neutrophils (36.0-66.0) % Band Neutrophils (0.0-2.0) % Lymphocytes (Manual) (24-44) % Monocytes (Manual) (0.0-12.0) % Eosinophils (Manual) (0.00-3.0) % Platelet Estimate (NORMAL) RBC Morphology Polychromasia Poikilocytosis Anisocytosis pO2/FiO2 Ratio % VBG pH (7.32-7.42) VBG pCO2 at Pat Temp (42-55) mm/Hg VBG pO2 at Pat Temp (25-40) mm/Hg VBG HCO3 (22-28) meq/L VBG O2 Sat (Tay) (95-100) VBG Base Excess (-2.0-2.0) VBG Hemoglobin VBG Carboxyhemoglobin (0.0-6.9) % T HGB POC Potassium (3.5-5.1) Sodium (137-145) mmol/L Potassium (3.5-5.1) mmol/L Chloride (98-107) mmol/L Carbon Dioxide (22-30) mmol/L BUN (7-17) mg/dL Creatinine (0.52-1.04) mg/dL Estimated GFR ML/MIN Glucose (74-106) mg/dL POC Glucometer (74 to 106) mg/dL Lactic Acid (0.4-2.0) Calcium (8.4-10.2) mg/dL Phosphorus (2.5-4.5) mg/dL Magnesium (1.6-2.3) mg/dL Total Bilirubin (0.2-1.3) mg/dL AST (14-36) U/L ALT (0-35) U/L Alkaline Phosphatase (38-126) U/L Troponin I (0.000-0.034) ng/mL Serum Total Protein (6.3-8.2) g/dL Albumin (3.5-5.0) g/dL Urine Color YELLOW (YELLOW) Urine Appearance SLIGHTLY CLOUDY (CLEAR) Urine pH 5.0 (5-6) Ur Specific [place] 1.018 (1.005-1.025) Urine Protein 100 (Negative) Urine Ketones MODERATE (NEGATIVE) Urine Blood LARGE (0-5) Kade/ul Urine Nitrite NEGATIVE (NEGATIVE) Urine Bilirubin NEGATIVE (NEGATIVE) Urine Urobilinogen NEGATIVE (0-1) mg/dL Ur Leukocyte Esterase NEGATIVE (NEGATIVE) Urine WBC (Auto) 16-25 (0-5) /HPF Urine RBC (Auto) >101 (0-2) /HPF U Epithel Cells (Auto) RARE (FEW) /HPF Urine Bacteria (Auto) NONE (NEGATIVE) /HPF Urine Mucus (Auto) SLIGHT (NEGATIVE) /HPF Urine Culture Reflexed YES (NO) Urine Glucose >=500 (NEGATIVE) mg/dL Urine HCG, Qual NEGATIVE (Negative) Influenza Type A Ag NEGATIVE (NEGATIVE) Influenza Type B Ag NEGATIVE (NEGATIVE) RSV (PCR) NEGATIVE (Negative) SARS-CoV-2 (PCR) NEGATIVE (NEGATIVE) 10/27/20 10/27/20 10/27/20 Range/Units 06:00 06:11 06:31 WBC (4.0-10.5) K/mm3 RBC (4.1-5.4) M/mm3 Hgb (12.0-16.0) gm/dl Hct (35-47) % MCV (78-100) fl MCH (26-32) pg MCHC (32-36) g/dl RDW (11.5-14.0) % Plt Count (150-450) K/mm3 MPV (7.5-11.0) fl Segmented Neutrophils (36.0-66.0) % Band Neutrophils (0.0-2.0) % Lymphocytes (Manual) (24-44) % Monocytes (Manual) (0.0-12.0) % Eosinophils (Manual) (0.00-3.0) % Platelet Estimate (NORMAL) RBC Morphology Polychromasia Poikilocytosis Anisocytosis pO2/FiO2 Ratio % VBG pH (7.32-7.42) VBG pCO2 at Pat Temp (42-55) mm/Hg VBG pO2 at Pat Temp (25-40) mm/Hg VBG HCO3 (22-28) meq/L VBG O2 Sat (Tay) (95-100) VBG Base Excess (-2.0-2.0) VBG Hemoglobin VBG Carboxyhemoglobin (0.0-6.9) % T HGB POC Potassium (3.5-5.1) Sodium (137-145) mmol/L Potassium (3.5-5.1) mmol/L Chloride (98-107) mmol/L Carbon Dioxide (22-30) mmol/L BUN (7-17) mg/dL Creatinine (0.52-1.04) mg/dL Estimated GFR ML/MIN Glucose (74-106) mg/dL POC Glucometer 370 H (74 to 106) mg/dL Lactic Acid 2.4 H (0.4-2.0) Calcium (8.4-10.2) mg/dL Phosphorus (2.5-4.5) mg/dL Magnesium (1.6-2.3) mg/dL Total Bilirubin (0.2-1.3) mg/dL AST (14-36) U/L ALT (0-35) U/L Alkaline Phosphatase (38-126) U/L Troponin I < 0.012 (0.000-0.034) ng/mL Serum Total Protein (6.3-8.2) g/dL Albumin (3.5-5.0) g/dL Urine Color (YELLOW) Urine Appearance (CLEAR) Urine pH (5-6) Ur Specific [place] (1.005-1.025) Urine Protein (Negative) Urine Ketones (NEGATIVE) Urine Blood (0-5) Kade/ul Urine Nitrite (NEGATIVE) Urine Bilirubin (NEGATIVE) Urine Urobilinogen (0-1) mg/dL Ur Leukocyte Esterase (NEGATIVE) Urine WBC (Auto) (0-5) /HPF Urine RBC (Auto) (0-2) /HPF U Epithel Cells (Auto) (FEW) /HPF Urine Bacteria (Auto) (NEGATIVE) /HPF Urine Mucus (Auto) (NEGATIVE) /HPF Urine Culture Reflexed (NO) Urine Glucose (NEGATIVE) mg/dL Urine HCG, Qual (Negative) Influenza Type A Ag (NEGATIVE) Influenza Type B Ag (NEGATIVE) RSV (PCR) (Negative) SARS-CoV-2 (PCR) (NEGATIVE) 10/27/20 10/27/20 10/27/20 Range/Units 07:08 07:15 08:06 WBC (4.0-10.5) K/mm3 RBC (4.1-5.4) M/mm3 Hgb (12.0-16.0) gm/dl Hct (35-47) % MCV (78-100) fl MCH (26-32) pg MCHC (32-36) g/dl RDW (11.5-14.0) % Plt Count (150-450) K/mm3 MPV (7.5-11.0) fl Segmented Neutrophils (36.0-66.0) % Band Neutrophils (0.0-2.0) % Lymphocytes (Manual) (24-44) % Monocytes (Manual) (0.0-12.0) % Eosinophils (Manual) (0.00-3.0) % Platelet Estimate (NORMAL) RBC Morphology Polychromasia Poikilocytosis Anisocytosis pO2/FiO2 Ratio % VBG pH (7.32-7.42) VBG pCO2 at Pat Temp (42-55) mm/Hg VBG pO2 at Pat Temp (25-40) mm/Hg VBG HCO3 (22-28) meq/L VBG O2 Sat (Tay) (95-100) VBG Base Excess (-2.0-2.0) VBG Hemoglobin VBG Carboxyhemoglobin (0.0-6.9) % T HGB POC Potassium (3.5-5.1) Sodium 141 (137-145) mmol/L Potassium 4.4 D (3.5-5.1) mmol/L Chloride 112 H (98-107) mmol/L Carbon Dioxide < 5 L* (22-30) mmol/L BUN 11 (7-17) mg/dL Creatinine 0.71 (0.52-1.04) mg/dL Estimated GFR > 60.0 ML/MIN Glucose 377 H (74-106) mg/dL POC Glucometer 357 H 315 H (74 to 106) mg/dL Lactic Acid (0.4-2.0) Calcium 8.4 (8.4-10.2) mg/dL Phosphorus 4.5 (2.5-4.5) mg/dL Magnesium (1.6-2.3) mg/dL Total Bilirubin (0.2-1.3) mg/dL AST (14-36) U/L ALT (0-35) U/L Alkaline Phosphatase (38-126) U/L Troponin I (0.000-0.034) ng/mL Serum Total Protein (6.3-8.2) g/dL Albumin (3.5-5.0) g/dL Urine Color (YELLOW) Urine Appearance (CLEAR) Urine pH (5-6) Ur Specific [place] (1.005-1.025) Urine Protein (Negative) Urine Ketones (NEGATIVE) Urine Blood (0-5) Kade/ul Urine Nitrite (NEGATIVE) Urine Bilirubin (NEGATIVE) Urine Urobilinogen (0-1) mg/dL Ur Leukocyte Esterase (NEGATIVE) Urine WBC (Auto) (0-5) /HPF Urine RBC (Auto) (0-2) /HPF U Epithel Cells (Auto) (FEW) /HPF Urine Bacteria (Auto) (NEGATIVE) /HPF Urine Mucus (Auto) (NEGATIVE) /HPF Urine Culture Reflexed (NO) Urine Glucose (NEGATIVE) mg/dL Urine HCG, Qual (Negative) Influenza Type A Ag (NEGATIVE) Influenza Type B Ag (NEGATIVE) RSV (PCR) (Negative) SARS-CoV-2 (PCR) (NEGATIVE) 10/27/20 Range/Units 08:53 WBC (4.0-10.5) K/mm3 RBC (4.1-5.4) M/mm3 Hgb (12.0-16.0) gm/dl Hct (35-47) % MCV (78-100) fl MCH (26-32) pg MCHC (32-36) g/dl RDW (11.5-14.0) % Plt Count (150-450) K/mm3 MPV (7.5-11.0) fl Segmented Neutrophils (36.0-66.0) % Band Neutrophils (0.0-2.0) % Lymphocytes (Manual) (24-44) % Monocytes (Manual) (0.0-12.0) % Eosinophils (Manual) (0.00-3.0) % Platelet Estimate (NORMAL) RBC Morphology Polychromasia Poikilocytosis Anisocytosis pO2/FiO2 Ratio % VBG pH (7.32-7.42) VBG pCO2 at Pat Temp (42-55) mm/Hg VBG pO2 at Pat Temp (25-40) mm/Hg VBG HCO3 (22-28) meq/L VBG O2 Sat (Tay) (95-100) VBG Base Excess (-2.0-2.0) VBG Hemoglobin VBG Carboxyhemoglobin (0.0-6.9) % T HGB POC Potassium (3.5-5.1) Sodium (137-145) mmol/L Potassium (3.5-5.1) mmol/L Chloride (98-107) mmol/L Carbon Dioxide (22-30) mmol/L BUN (7-17) mg/dL Creatinine (0.52-1.04) mg/dL Estimated GFR ML/MIN Glucose (74-106) mg/dL POC Glucometer 277 H (74 to 106) mg/dL Lactic Acid (0.4-2.0) Calcium (8.4-10.2) mg/dL Phosphorus (2.5-4.5) mg/dL Magnesium (1.6-2.3) mg/dL Total Bilirubin (0.2-1.3) mg/dL AST (14-36) U/L ALT (0-35) U/L Alkaline Phosphatase (38-126) U/L Troponin I (0.000-0.034) ng/mL Serum Total Protein (6.3-8.2) g/dL Albumin (3.5-5.0) g/dL Urine Color (YELLOW) Urine Appearance (CLEAR) Urine pH (5-6) Ur Specific [place] (1.005-1.025) Urine Protein (Negative) Urine Ketones (NEGATIVE) Urine Blood (0-5) Kade/ul Urine Nitrite (NEGATIVE) Urine Bilirubin (NEGATIVE) Urine Urobilinogen (0-1) mg/dL Ur Leukocyte Esterase (NEGATIVE) Urine WBC (Auto) (0-5) /HPF Urine RBC (Auto) (0-2) /HPF U Epithel Cells (Auto) (FEW) /HPF Urine Bacteria (Auto) (NEGATIVE) /HPF Urine Mucus (Auto) (NEGATIVE) /HPF Urine Culture Reflexed (NO) Urine Glucose (NEGATIVE) mg/dL Urine HCG, Qual (Negative) Influenza Type A Ag (NEGATIVE) Influenza Type B Ag (NEGATIVE) RSV (PCR) (Negative) SARS-CoV-2 (PCR) (NEGATIVE) Accuchecks Date 10/27/20 Date 10/27/20 Date 10/27/20 Date 10/27/20 Date 10/27/20 Time 09:02 Time 08:09 Time 07:00 Time 06:00 Time 04:10 - Radiology Impressions Radiology Exams & Impressions: Radiology Procedures Category Date Time Status CHEST 1 VIEW (PORTABLE) Stat Exams 10/27/20 04:03 Completed - Other Procedures and Tests Respiratory Therapy 10/27/20 08:23 Oxygen Nasal Cannula 2 lpm Assessment/Plan (1) DKA (diabetic ketoacidoses) Current Visit: Yes Status: Acute Qualifiers: Diabetes mellitus complication detail: without coma Assessment & Plan: continue insulin drip, aggressive IV fluids. presenting glucose was 526 and now down to 377, CO2 remains <5 but should begin to improve. will continue to monitor every 4 hours. Code(s): E11.10 - TYPE 2 DIABETES MELLITUS WITH KETOACIDOSIS WITHOUT COMA (2) Type 2 diabetes mellitus, uncontrolled Current Visit: No Status: Acute Code(s): E11.65 - TYPE 2 DIABETES MELLITUS WITH HYPERGLYCEMIA
[2020-10-27 09:47] LABS: VBG BASE EXCESS -26.8 (-2.0-2.0); VBG CARBOXYHEMOGLOBIN 0.4 % T HGB (0.0-6.9); VBG HCO3- 3.1 meq/L (22-28); VBG HEMOGLOBIN 13.7; VBG O2 SATURATION 98.6 (95-100); VBG POTASSIUM 4.4 (3.5-5.1)
[2020-10-27 09:48] LABS: VBG pH 6.98 (7.32-7.42)
[2020-10-27] MEDS ORDERED: Magnesium 1 Gm / 100 Ml D5W*** 100 ML IV ONE (10:42)
[2020-10-27] MEDS: SYNTHROID 25 MCG PO SCH (11:15)
[2020-10-27 13:03] LABS: A-aADO2 49; ABG POTASSIUM 3.7 (3.5-5.1); ARTERIAL BLD GAS O2 SATURATION 99.2 % (95-100); ARTERIAL BLOOD GAS BASE EXCESS -21.6 (-2.0-2.0); ARTERIAL BLOOD GAS PO2 137 mmHg (75-100); HCO3- 4.1 (22-28)
[2020-10-27 13:04] LABS: ABG HEMOGLOBIN 13.1; ARTERIAL BLOOD GAS FIO2 28 %; CARBOXYHEMOGLOBIN 2.8 % THgb (0.0-6.9); HGB O2 SAT 95.2 g/dF (94-100); Methhemoglobin 1.2 % (1.4-1.5)
[2020-10-27 13:05] LABS: ARTERIAL BLOOD GAS pH 7.18 (7.35-7.45)
[2020-10-27 13:06] LABS: ARTERIAL BLOOD GAS PCO2 11 mmHg (35-45)
[2020-10-27 13:16] LABS: ABG SITE LEFT RADIAL; ALLEN TEST OK? YES
[2020-10-27] MEDS: Dextrose 5% -0.45 NaCl 1000 ML 1,000 ML IV SCH ×3 (13:20→22:57)
[2020-10-27] MEDS: Zofran 4 MG/2 ML VIAL IV PRN ×2 (13:30→21:59)
[2020-10-27 14:13] LABS: BLOOD UREA NITROGEN 8 mg/dL (7-17); CHLORIDE 116 mmol/L (98-107); Creatinine 1 0.51 mg/dL (0.52-1.04); EST GLOMERULAR FILTRATION RATE > 60.0 ML/MIN; Glucose 188 mg/dL (74-106); Potassium 3.9 mmol/L (3.5-5.1); SODIUM 138 mmol/L (137-145)
[2020-10-27 14:32] LABS: Carbon Dioxide < 5 mmol/L (22-30)
[2020-10-27] MEDS ORDERED: Zofran 4 MG/2 ML VIAL IV ONE (16:13)
[2020-10-27] MEDS: Pepcid 20 MG VIAL IV SCH ×2 (16:27→20:59)
[2020-10-27 17:27] LABS: BLOOD UREA NITROGEN 8 mg/dL (7-17); CHLORIDE 114 mmol/L (98-107); Creatinine 1 0.45 mg/dL (0.52-1.04); EST GLOMERULAR FILTRATION RATE > 60.0 ML/MIN; Glucose 225 mg/dL (74-106); Potassium 3.5 mmol/L (3.5-5.1); SODIUM 137 mmol/L (137-145)
[2020-10-27 17:29] LABS: Carbon Dioxide 9 mmol/L (22-30)
[2020-10-27] MEDS: PROTONIX 40 MG IV IV SCH (20:38)
[2020-10-27 22:28] LABS: BLOOD UREA NITROGEN 8 mg/dL (7-17); CHLORIDE 115 mmol/L (98-107); Calcium 8.2 mg/dL (8.4-10.2); Creatinine 1 0.41 mg/dL (0.52-1.04); EST GLOMERULAR FILTRATION RATE > 60.0 ML/MIN; Glucose 160 mg/dL (74-106); Potassium 3.3 mmol/L (3.5-5.1); SODIUM 137 mmol/L (137-145)
[2020-10-27 22:30] LABS: Carbon Dioxide 12 mmol/L (22-30)
[2020-10-28] MEDS: POTASSIUM CHLORIDE 20 mEq IN WATER 100ML 20 MEQ/100 ML BAG IV SCH ×4 (00:06→11:32)
[2020-10-28] MEDS ORDERED: D50W 50ML Vial IV ONE (01:03)
[2020-10-28] MEDS ORDERED: D50W 50 ml Abboject IV ONE (01:08)
[2020-10-28] MEDS: Zofran 4 MG/2 ML VIAL IV PRN (04:01)
[2020-10-28] MEDS: Dextrose 5% -0.45 NaCl 1000 ML 1,000 ML IV SCH (04:01)
[2020-10-28 05:08] LABS: Absolute Neutrophil Ct (ANC) 6.54 (1.4-6.9); BASOPHIL % 0.1 % (0.0-0.4); Basophil (Absolute #) 0.01 (0-0.4); Eosinophil (Absolute #) 0 (0-0.5); Hematocrit 35.4 % (35-47); Hemoglobin 12.1 gm/dl (12.0-16.0); Lymphocytes % 10.1 % (24.0-44.0); Mean Cell Volume 86.1 fl (78-100); Mean Corpuscular Hemoglobin 29.4 pg (26-32); Mean Corpuscular Hgb Concent. 34.2 g/dl (32-36); Monocyte (Absolute #) 0.55 (0.0-1.3); Neutrophil % 82.8 % (36.0-66.0); Platelet Count 329 K/mm3 (150-450); Red Blood Count 4.11 M/mm3 (4.1-5.4); Red Cell Distribution Width 13.2 % (11.5-14.0); White Blood Count 7.9 K/mm3 (4.0-10.5)
[2020-10-28 05:35] LABS: BLOOD UREA NITROGEN 7 mg/dL (7-17); CHLORIDE 113 mmol/L (98-107); Calcium 8.3 mg/dL (8.4-10.2); Creatinine 1 0.44 mg/dL (0.52-1.04); EST GLOMERULAR FILTRATION RATE > 60.0 ML/MIN; Glucose 133 mg/dL (74-106); MAGNESIUM 1.8 mg/dL (1.6-2.3); SODIUM 137 mmol/L (137-145)
[2020-10-28 06:00] LABS: ANION GAP 13.9 MEQ/L (5-15); Carbon Dioxide 13 mmol/L (22-30); Potassium 2.9 mmol/L (3.5-5.1)
[2020-10-28] MEDS: HUMULIN R 100 UNIT in Sodium Chloride 0.9% 100 ML IVPB 100 ML IV PRN (06:47)
--- NOTE | 2020-10-28 08:50 | PCM.NOTE ---
Date and Time: 10/28/20 0848 Subjective Assessment: patient still very nauseated and vomiting. has some abd pain Objective Exam General Appearance: no apparent distress, obese Skin Exam: normal color, warm, dry Respiratory Exam: normal breath sounds, lungs clear, No respiratory distress Cardiovascular Exam: regular rate/rhythm, normal heart sounds Gastrointestinal/Abdomen Exam: soft, No tenderness, No mass OBJECTIVE DATA Vital Signs: Vital Signs - 24 hr Temp Pulse Resp BP Pulse Ox 10/28/20 07:49 100 H 10/28/20 07:47 20 10/28/20 07:37 98.2 F 102 H 19 133/72 94 L 10/28/20 07:19 98 10/28/20 04:00 98.1 F 98 H 12 149/83 99 10/28/20 00:00 98.1 F 88 19 139/77 99 10/27/20 20:15 98.1 F 89 18 139/77 99 10/27/20 15:54 98 F 98 H 18 125/68 99 10/27/20 15:49 98 H 19 10/27/20 12:00 118 H 22 98/63 98 10/27/20 11:47 113 H 21 Oxygen-Last 24 hours Oxygen Flowrate (L/min)-RT 2 Oxygen Flowrate (L/min)-RT 2 Oxygen Flowrate (L/min)-RT 2 Oxygen Flowrate (L/min)-RT 2 Oxygen Flowrate (L/min)-RT 2 Pain Assessment - Last Documented Pain Intensity 8 Intake and Output: Intake & Output 10/25/20 10/26/20 10/27/20 10/28/20 11:59 11:59 11:59 11:59 Intake Total 1999 3901 Output Total 1000 2350 Balance 1000 1551 Weight 119.5 kg 121.9 kg Lab Results: Lab Results-Last 24 Hours 10/27/20 10/27/20 10/27/20 Range/Units 07:15 08:53 09:27 WBC (4.0-10.5) K/mm3 RBC (4.1-5.4) M/mm3 Hgb (12.0-16.0) gm/dl Hct (35-47) % MCV (78-100) fl MCH (26-32) pg MCHC (32-36) g/dl RDW (11.5-14.0) % Plt Count (150-450) K/mm3 MPV (7.5-11.0) fl Gran % (36.0-66.0) % Eos # (Auto) (0-0.5) Absolute Lymphs (auto) (1.0-4.6) Absolute Monos (auto) (0.0-1.3) Lymphocytes % (24.0-44.0) % Monocytes % (0.0-12.0) % Eosinophils % (0.00-5.0) % Basophils % (0.0-0.4) % Absolute Granulocytes (1.4-6.9) Basophils # (0-0.4) Puncture Site pCO2 (35-45) mmHg pO2 (75-100) mmHg pO2/FiO2 Ratio 28.0 % Base Excess (-2.0-2.0) O2 Saturation (94-100) g/dF ABG pH (7.35-7.45) ABG HCO3 (22-28) ABG O2 Sat (Measured) (95-100) % Chip Test VBG pH 6.98 L* (7.32-7.42) VBG pCO2 at Pat Temp 13 L* (42-55) mm/Hg VBG pO2 at Pat Temp 124 H (25-40) mm/Hg VBG HCO3 3.1 L* (22-28) meq/L VBG O2 Sat (Tay) 98.6 (95-100) VBG Base Excess -26.8 L (-2.0-2.0) VBG Hemoglobin 13.7 VBG Carboxyhemoglobin 0.4 (0.0-6.9) % T HGB A-a Gradient a/A Ratio Hemoglobin Carboxyhemoglobin (0.0-6.9) % THgb Methemoglobin (1.4-1.5) % POC Potassium 4.4 (3.5-5.1) Temperature C POC O2 Flow Rate % Sodium 141 (137-145) mmol/L Potassium 4.4 D (3.5-5.1) mmol/L Chloride 112 H (98-107) mmol/L Carbon Dioxide < 5 L* (22-30) mmol/L Anion Gap (5-15) MEQ/L BUN 11 (7-17) mg/dL Creatinine 0.71 (0.52-1.04) mg/dL Estimated GFR > 60.0 ML/MIN Glucose 377 H (74-106) mg/dL POC Glucometer 277 H (74 to 106) mg/dL Hemoglobin A1c (4.5-6.0) % Lactic Acid (0.4-2.0) Calcium 8.4 (8.4-10.2) mg/dL Phosphorus 4.5 (2.5-4.5) mg/dL Magnesium (1.6-2.3) mg/dL 10/27/20 10/27/20 10/27/20 Range/Units 10:52 12:15 12:15 WBC (4.0-10.5) K/mm3 RBC (4.1-5.4) M/mm3 Hgb (12.0-16.0) gm/dl Hct (35-47) % MCV (78-100) fl MCH (26-32) pg MCHC (32-36) g/dl RDW (11.5-14.0) % Plt Count (150-450) K/mm3 MPV (7.5-11.0) fl Gran % (36.0-66.0) % Eos # (Auto) (0-0.5) Absolute Lymphs (auto) (1.0-4.6) Absolute Monos (auto) (0.0-1.3) Lymphocytes % (24.0-44.0) % Monocytes % (0.0-12.0) % Eosinophils % (0.00-5.0) % Basophils % (0.0-0.4) % Absolute Granulocytes (1.4-6.9) Basophils # (0-0.4) Puncture Site LEFT RADIAL pCO2 11 L* (35-45) mmHg pO2 137 H* (75-100) mmHg pO2/FiO2 Ratio % Base Excess -21.6 L (-2.0-2.0) O2 Saturation 95.2 (94-100) g/dF ABG pH 7.18 L* (7.35-7.45) ABG HCO3 4.1 L* (22-28) ABG O2 Sat (Measured) 99.2 (95-100) % Chip Test YES VBG pH (7.32-7.42) VBG pCO2 at Pat Temp (42-55) mm/Hg VBG pO2 at Pat Temp (25-40) mm/Hg VBG HCO3 (22-28) meq/L VBG O2 Sat (Tay) (95-100) VBG Base Excess (-2.0-2.0) VBG Hemoglobin VBG Carboxyhemoglobin (0.0-6.9) % T HGB A-a Gradient 49 a/A Ratio 0.74 Hemoglobin 13.1 Carboxyhemoglobin 2.8 (0.0-6.9) % THgb Methemoglobin 1.2 L (1.4-1.5) % POC Potassium (3.5-5.1) Temperature 37.0 C POC O2 Flow Rate 28 % Sodium (137-145) mmol/L Potassium 3.7 (3.5-5.1) mmol/L Chloride (98-107) mmol/L Carbon Dioxide (22-30) mmol/L Anion Gap (5-15) MEQ/L BUN (7-17) mg/dL Creatinine (0.52-1.04) mg/dL Estimated GFR ML/MIN Glucose (74-106) mg/dL POC Glucometer 223 H (74 to 106) mg/dL Hemoglobin A1c (4.5-6.0) % Lactic Acid 0.7 (0.4-2.0) Calcium (8.4-10.2) mg/dL Phosphorus (2.5-4.5) mg/dL Magnesium (1.6-2.3) mg/dL 10/27/20 10/27/20 10/27/20 Range/Units 12:45 12:45 12:57 WBC (4.0-10.5) K/mm3 RBC (4.1-5.4) M/mm3 Hgb (12.0-16.0) gm/dl Hct (35-47) % MCV (78-100) fl MCH (26-32) pg MCHC (32-36) g/dl RDW (11.5-14.0) % Plt Count (150-450) K/mm3 MPV (7.5-11.0) fl Gran % (36.0-66.0) % Eos # (Auto) (0-0.5) Absolute Lymphs (auto) (1.0-4.6) Absolute Monos (auto) (0.0-1.3) Lymphocytes % (24.0-44.0) % Monocytes % (0.0-12.0) % Eosinophils % (0.00-5.0) % Basophils % (0.0-0.4) % Absolute Granulocytes (1.4-6.9) Basophils # (0-0.4) Puncture Site pCO2 (35-45) mmHg pO2 (75-100) mmHg pO2/FiO2 Ratio % Base Excess (-2.0-2.0) O2 Saturation (94-100) g/dF ABG pH (7.35-7.45) ABG HCO3 (22-28) ABG O2 Sat (Measured) (95-100) % Chip Test VBG pH (7.32-7.42) VBG pCO2 at Pat Temp (42-55) mm/Hg VBG pO2 at Pat Temp (25-40) mm/Hg VBG HCO3 (22-28) meq/L VBG O2 Sat (Tay) (95-100) VBG Base Excess (-2.0-2.0) VBG Hemoglobin VBG Carboxyhemoglobin (0.0-6.9) % T HGB A-a Gradient a/A Ratio Hemoglobin Carboxyhemoglobin (0.0-6.9) % THgb Methemoglobin (1.4-1.5) % POC Potassium (3.5-5.1) Temperature C POC O2 Flow Rate % Sodium 138 (137-145) mmol/L Potassium 3.9 (3.5-5.1) mmol/L Chloride 116 H (98-107) mmol/L Carbon Dioxide < 5 L* (22-30) mmol/L Anion Gap (5-15) MEQ/L BUN 8 (7-17) mg/dL Creatinine 0.51 L (0.52-1.04) mg/dL Estimated GFR > 60.0 ML/MIN Glucose 188 H (74-106) mg/dL POC Glucometer 154 H (74 to 106) mg/dL Hemoglobin A1c 9.86 H (4.5-6.0) % Lactic Acid (0.4-2.0) Calcium 8.0 L (8.4-10.2) mg/dL Phosphorus (2.5-4.5) mg/dL Magnesium (1.6-2.3) mg/dL 10/27/20 10/27/20 10/27/20 Range/Units 14:14 15:04 16:00 WBC (4.0-10.5) K/mm3 RBC (4.1-5.4) M/mm3 Hgb (12.0-16.0) gm/dl Hct (35-47) % MCV (78-100) fl MCH (26-32) pg MCHC (32-36) g/dl RDW (11.5-14.0) % Plt Count (150-450) K/mm3 MPV (7.5-11.0) fl Gran % (36.0-66.0) % Eos # (Auto) (0-0.5) Absolute Lymphs (auto) (1.0-4.6) Absolute Monos (auto) (0.0-1.3) Lymphocytes % (24.0-44.0) % Monocytes % (0.0-12.0) % Eosinophils % (0.00-5.0) % Basophils % (0.0-0.4) % Absolute Granulocytes (1.4-6.9) Basophils # (0-0.4) Puncture Site pCO2 (35-45) mmHg pO2 (75-100) mmHg pO2/FiO2 Ratio % Base Excess (-2.0-2.0) O2 Saturation (94-100) g/dF ABG pH (7.35-7.45) ABG HCO3 (22-28) ABG O2 Sat (Measured) (95-100) % Chip Test VBG pH (7.32-7.42) VBG pCO2 at Pat Temp (42-55) mm/Hg VBG pO2 at Pat Temp (25-40) mm/Hg VBG HCO3 (22-28) meq/L VBG O2 Sat (Tay) (95-100) VBG Base Excess (-2.0-2.0) VBG Hemoglobin VBG Carboxyhemoglobin (0.0-6.9) % T HGB A-a Gradient a/A Ratio Hemoglobin Carboxyhemoglobin (0.0-6.9) % THgb Methemoglobin (1.4-1.5) % POC Potassium (3.5-5.1) Temperature C POC O2 Flow Rate % Sodium (137-145) mmol/L Potassium (3.5-5.1) mmol/L Chloride (98-107) mmol/L Carbon Dioxide (22-30) mmol/L Anion Gap (5-15) MEQ/L BUN (7-17) mg/dL Creatinine (0.52-1.04) mg/dL Estimated GFR ML/MIN Glucose (74-106) mg/dL POC Glucometer 169 H 183 H 206 H (74 to 106) mg/dL Hemoglobin A1c (4.5-6.0) % Lactic Acid (0.4-2.0) Calcium (8.4-10.2) mg/dL Phosphorus (2.5-4.5) mg/dL Magnesium (1.6-2.3) mg/dL 10/27/20 10/27/20 10/27/20 Range/Units 16:54 17:05 17:45 WBC (4.0-10.5) K/mm3 RBC (4.1-5.4) M/mm3 Hgb (12.0-16.0) gm/dl Hct (35-47) % MCV (78-100) fl MCH (26-32) pg MCHC (32-36) g/dl RDW (11.5-14.0) % Plt Count (150-450) K/mm3 MPV (7.5-11.0) fl Gran % (36.0-66.0) % Eos # (Auto) (0-0.5) Absolute Lymphs (auto) (1.0-4.6) Absolute Monos (auto) (0.0-1.3) Lymphocytes % (24.0-44.0) % Monocytes % (0.0-12.0) % Eosinophils % (0.00-5.0) % Basophils % (0.0-0.4) % Absolute Granulocytes (1.4-6.9) Basophils # (0-0.4) Puncture Site pCO2 (35-45) mmHg pO2 (75-100) mmHg pO2/FiO2 Ratio % Base Excess (-2.0-2.0) O2 Saturation (94-100) g/dF ABG pH (7.35-7.45) ABG HCO3 (22-28) ABG O2 Sat (Measured) (95-100) % Chip Test VBG pH (7.32-7.42) VBG pCO2 at Pat Temp (42-55) mm/Hg VBG pO2 at Pat Temp (25-40) mm/Hg VBG HCO3 (22-28) meq/L VBG O2 Sat (Tay) (95-100) VBG Base Excess (-2.0-2.0) VBG Hemoglobin VBG Carboxyhemoglobin (0.0-6.9) % T HGB A-a Gradient a/A Ratio Hemoglobin Carboxyhemoglobin (0.0-6.9) % THgb Methemoglobin (1.4-1.5) % POC Potassium (3.5-5.1) Temperature C POC O2 Flow Rate % Sodium 137 (137-145) mmol/L Potassium 3.5 (3.5-5.1) mmol/L Chloride 114 H (98-107) mmol/L Carbon Dioxide 9 L* (22-30) mmol/L Anion Gap 17.0 H (5-15) MEQ/L BUN 8 (7-17) mg/dL Creatinine 0.45 L (0.52-1.04) mg/dL Estimated GFR > 60.0 ML/MIN Glucose 225 H (74-106) mg/dL POC Glucometer 209 H 186 H (74 to 106) mg/dL Hemoglobin A1c (4.5-6.0) % Lactic Acid (0.4-2.0) Calcium 8.0 L (8.4-10.2) mg/dL Phosphorus (2.5-4.5) mg/dL Magnesium (1.6-2.3) mg/dL 10/27/20 10/27/20 10/27/20 Range/Units 18:48 20:08 20:56 WBC (4.0-10.5) K/mm3 RBC (4.1-5.4) M/mm3 Hgb (12.0-16.0) gm/dl Hct (35-47) % MCV (78-100) fl MCH (26-32) pg MCHC (32-36) g/dl RDW (11.5-14.0) % Plt Count (150-450) K/mm3 MPV (7.5-11.0) fl Gran % (36.0-66.0) % Eos # (Auto) (0-0.5) Absolute Lymphs (auto) (1.0-4.6) Absolute Monos (auto) (0.0-1.3) Lymphocytes % (24.0-44.0) % Monocytes % (0.0-12.0) % Eosinophils % (0.00-5.0) % Basophils % (0.0-0.4) % Absolute Granulocytes (1.4-6.9) Basophils # (0-0.4) Puncture Site pCO2 (35-45) mmHg pO2 (75-100) mmHg pO2/FiO2 Ratio % Base Excess (-2.0-2.0) O2 Saturation (94-100) g/dF ABG pH (7.35-7.45) ABG HCO3 (22-28) ABG O2 Sat (Measured) (95-100) % Chip Test VBG pH (7.32-7.42) VBG pCO2 at Pat Temp (42-55) mm/Hg VBG pO2 at Pat Temp (25-40) mm/Hg VBG HCO3 (22-28) meq/L VBG O2 Sat (Tay) (95-100) VBG Base Excess (-2.0-2.0) VBG Hemoglobin VBG Carboxyhemoglobin (0.0-6.9) % T HGB A-a Gradient a/A Ratio Hemoglobin Carboxyhemoglobin (0.0-6.9) % THgb Methemoglobin (1.4-1.5) % POC Potassium (3.5-5.1) Temperature C POC O2 Flow Rate % Sodium (137-145) mmol/L Potassium (3.5-5.1) mmol/L Chloride (98-107) mmol/L Carbon Dioxide (22-30) mmol/L Anion Gap (5-15) MEQ/L BUN (7-17) mg/dL Creatinine (0.52-1.04) mg/dL Estimated GFR ML/MIN Glucose (74-106) mg/dL POC Glucometer 205 H 186 H 159 H (74 to 106) mg/dL Hemoglobin A1c (4.5-6.0) % Lactic Acid (0.4-2.0) Calcium (8.4-10.2) mg/dL Phosphorus (2.5-4.5) mg/dL Magnesium (1.6-2.3) mg/dL 10/27/20 10/27/20 10/27/20 Range/Units 22:00 22:16 22:54 WBC (4.0-10.5) K/mm3 RBC (4.1-5.4) M/mm3 Hgb (12.0-16.0) gm/dl Hct (35-47) % MCV (78-100) fl MCH (26-32) pg MCHC (32-36) g/dl RDW (11.5-14.0) % Plt Count (150-450) K/mm3 MPV (7.5-11.0) fl Gran % (36.0-66.0) % Eos # (Auto) (0-0.5) Absolute Lymphs (auto) (1.0-4.6) Absolute Monos (auto) (0.0-1.3) Lymphocytes % (24.0-44.0) % Monocytes % (0.0-12.0) % Eosinophils % (0.00-5.0) % Basophils % (0.0-0.4) % Absolute Granulocytes (1.4-6.9) Basophils # (0-0.4) Puncture Site pCO2 (35-45) mmHg pO2 (75-100) mmHg pO2/FiO2 Ratio % Base Excess (-2.0-2.0) O2 Saturation (94-100) g/dF ABG pH (7.35-7.45) ABG HCO3 (22-28) ABG O2 Sat (Measured) (95-100) % Chip Test VBG pH (7.32-7.42) VBG pCO2 at Pat Temp (42-55) mm/Hg VBG pO2 at Pat Temp (25-40) mm/Hg VBG HCO3 (22-28) meq/L VBG O2 Sat (Tay) (95-100) VBG Base Excess (-2.0-2.0) VBG Hemoglobin VBG Carboxyhemoglobin (0.0-6.9) % T HGB A-a Gradient a/A Ratio Hemoglobin Carboxyhemoglobin (0.0-6.9) % THgb Methemoglobin (1.4-1.5) % POC Potassium (3.5-5.1) Temperature C POC O2 Flow Rate % Sodium 137 (137-145) mmol/L Potassium 3.3 L (3.5-5.1) mmol/L Chloride 115 H (98-107) mmol/L Carbon Dioxide 12 L* (22-30) mmol/L Anion Gap 13.0 (5-15) MEQ/L BUN 8 (7-17) mg/dL Creatinine 0.41 L (0.52-1.04) mg/dL Estimated GFR > 60.0 ML/MIN Glucose 160 H (74-106) mg/dL POC Glucometer 143 H 133 H (74 to 106) mg/dL Hemoglobin A1c (4.5-6.0) % Lactic Acid (0.4-2.0) Calcium 8.2 L (8.4-10.2) mg/dL Phosphorus (2.5-4.5) mg/dL Magnesium (1.6-2.3) mg/dL 10/27/20 10/28/20 10/28/20 Range/Units 23:50 00:56 01:53 WBC (4.0-10.5) K/mm3 RBC (4.1-5.4) M/mm3 Hgb (12.0-16.0) gm/dl Hct (35-47) % MCV (78-100) fl MCH (26-32) pg MCHC (32-36) g/dl RDW (11.5-14.0) % Plt Count (150-450) K/mm3 MPV (7.5-11.0) fl Gran % (36.0-66.0) % Eos # (Auto) (0-0.5) Absolute Lymphs (auto) (1.0-4.6) Absolute Monos (auto) (0.0-1.3) Lymphocytes % (24.0-44.0) % Monocytes % (0.0-12.0) % Eosinophils % (0.00-5.0) % Basophils % (0.0-0.4) % Absolute Granulocytes (1.4-6.9) Basophils # (0-0.4) Puncture Site pCO2 (35-45) mmHg pO2 (75-100) mmHg pO2/FiO2 Ratio % Base Excess (-2.0-2.0) O2 Saturation (94-100) g/dF ABG pH (7.35-7.45) ABG HCO3 (22-28) ABG O2 Sat (Measured) (95-100) % Chip Test VBG pH (7.32-7.42) VBG pCO2 at Pat Temp (42-55) mm/Hg VBG pO2 at Pat Temp (25-40) mm/Hg VBG HCO3 (22-28) meq/L VBG O2 Sat (Tay) (95-100) VBG Base Excess (-2.0-2.0) VBG Hemoglobin VBG Carboxyhemoglobin (0.0-6.9) % T HGB A-a Gradient a/A Ratio Hemoglobin Carboxyhemoglobin (0.0-6.9) % THgb Methemoglobin (1.4-1.5) % POC Potassium (3.5-5.1) Temperature C POC O2 Flow Rate % Sodium (137-145) mmol/L Potassium (3.5-5.1) mmol/L Chloride (98-107) mmol/L Carbon Dioxide (22-30) mmol/L Anion Gap (5-15) MEQ/L BUN (7-17) mg/dL Creatinine (0.52-1.04) mg/dL Estimated GFR ML/MIN Glucose (74-106) mg/dL POC Glucometer 106 90 157 H (74 to 106) mg/dL Hemoglobin A1c (4.5-6.0) % Lactic Acid (0.4-2.0) Calcium (8.4-10.2) mg/dL Phosphorus (2.5-4.5) mg/dL Magnesium (1.6-2.3) mg/dL 10/28/20 10/28/20 10/28/20 Range/Units 02:51 03:55 04:18 WBC 7.9 (4.0-10.5) K/mm3 RBC 4.11 (4.1-5.4) M/mm3 Hgb 12.1 (12.0-16.0) gm/dl Hct 35.4 (35-47) % MCV 86.1 (78-100) fl MCH 29.4 (26-32) pg MCHC 34.2 (32-36) g/dl RDW 13.2 (11.5-14.0) % Plt Count 329 D (150-450) K/mm3 MPV 10.0 (7.5-11.0) fl Gran % 82.8 H (36.0-66.0) % Eos # (Auto) 0 (0-0.5) Absolute Lymphs (auto) 0.80 L (1.0-4.6) Absolute Monos (auto) 0.55 (0.0-1.3) Lymphocytes % 10.1 L (24.0-44.0) % Monocytes % 7.0 (0.0-12.0) % Eosinophils % 0.0 (0.00-5.0) % Basophils % 0.1 (0.0-0.4) % Absolute Granulocytes 6.54 (1.4-6.9) Basophils # 0.01 (0-0.4) Puncture Site pCO2 (35-45) mmHg pO2 (75-100) mmHg pO2/FiO2 Ratio % Base Excess (-2.0-2.0) O2 Saturation (94-100) g/dF ABG pH (7.35-7.45) ABG HCO3 (22-28) ABG O2 Sat (Measured) (95-100) % Chip Test VBG pH (7.32-7.42) VBG pCO2 at Pat Temp (42-55) mm/Hg VBG pO2 at Pat Temp (25-40) mm/Hg VBG HCO3 (22-28) meq/L VBG O2 Sat (Tay) (95-100) VBG Base Excess (-2.0-2.0) VBG Hemoglobin VBG Carboxyhemoglobin (0.0-6.9) % T HGB A-a Gradient a/A Ratio Hemoglobin Carboxyhemoglobin (0.0-6.9) % THgb Methemoglobin (1.4-1.5) % POC Potassium (3.5-5.1) Temperature C POC O2 Flow Rate % Sodium (137-145) mmol/L Potassium (3.5-5.1) mmol/L Chloride (98-107) mmol/L Carbon Dioxide (22-30) mmol/L Anion Gap (5-15) MEQ/L BUN (7-17) mg/dL Creatinine (0.52-1.04) mg/dL Estimated GFR ML/MIN Glucose (74-106) mg/dL POC Glucometer 148 H 139 H (74 to 106) mg/dL Hemoglobin A1c (4.5-6.0) % Lactic Acid (0.4-2.0) Calcium (8.4-10.2) mg/dL Phosphorus (2.5-4.5) mg/dL Magnesium (1.6-2.3) mg/dL 03/10/21 03/10/21 03/10/21 Range/Units 04:18 05:02 05:52 WBC (4.0-10.5) K/mm3 RBC (4.1-5.4) M/mm3 Hgb (12.0-16.0) gm/dl Hct (35-47) % MCV (78-100) fl MCH (26-32) pg MCHC (32-36) g/dl RDW (11.5-14.0) % Plt Count (150-450) K/mm3 MPV (7.5-11.0) fl Gran % (36.0-66.0) % Eos # (Auto) (0-0.5) Absolute Lymphs (auto) (1.0-4.6) Absolute Monos (auto) (0.0-1.3) Lymphocytes % (24.0-44.0) % Monocytes % (0.0-12.0) % Eosinophils % (0.00-5.0) % Basophils % (0.0-0.4) % Absolute Granulocytes (1.4-6.9) Basophils # (0-0.4) Puncture Site pCO2 (35-45) mmHg pO2 (75-100) mmHg pO2/FiO2 Ratio % Base Excess (-2.0-2.0) O2 Saturation (94-100) g/dF ABG pH (7.35-7.45) ABG HCO3 (22-28) ABG O2 Sat (Measured) (95-100) % Chip Test VBG pH (7.32-7.42) VBG pCO2 at Pat Temp (42-55) mm/Hg VBG pO2 at Pat Temp (25-40) mm/Hg VBG HCO3 (22-28) meq/L VBG O2 Sat (Tay) (95-100) VBG Base Excess (-2.0-2.0) VBG Hemoglobin VBG Carboxyhemoglobin (0.0-6.9) % T HGB A-a Gradient a/A Ratio Hemoglobin Carboxyhemoglobin (0.0-6.9) % THgb Methemoglobin (1.4-1.5) % POC Potassium (3.5-5.1) Temperature C POC O2 Flow Rate % Sodium 137 (137-145) mmol/L Potassium 2.9 L* (3.5-5.1) mmol/L Chloride 113 H (98-107) mmol/L Carbon Dioxide 13 L* (22-30) mmol/L Anion Gap 13.9 (5-15) MEQ/L BUN 7 (7-17) mg/dL Creatinine 0.44 L (0.52-1.04) mg/dL Estimated GFR > 60.0 ML/MIN Glucose 133 H (74-106) mg/dL POC Glucometer 103 145 H (74 to 106) mg/dL Hemoglobin A1c (4.5-6.0) % Lactic Acid (0.4-2.0) Calcium 8.3 L (8.4-10.2) mg/dL Phosphorus (2.5-4.5) mg/dL Magnesium 1.8 (1.6-2.3) mg/dL 10/28/20 10/28/20 10/28/20 Range/Units 06:51 06:55 08:00 WBC (4.0-10.5) K/mm3 RBC (4.1-5.4) M/mm3 Hgb (12.0-16.0) gm/dl Hct (35-47) % MCV (78-100) fl MCH (26-32) pg MCHC (32-36) g/dl RDW (11.5-14.0) % Plt Count (150-450) K/mm3 MPV (7.5-11.0) fl Gran % (36.0-66.0) % Eos # (Auto) (0-0.5) Absolute Lymphs (auto) (1.0-4.6) Absolute Monos (auto) (0.0-1.3) Lymphocytes % (24.0-44.0) % Monocytes % (0.0-12.0) % Eosinophils % (0.00-5.0) % Basophils % (0.0-0.4) % Absolute Granulocytes (1.4-6.9) Basophils # (0-0.4) Puncture Site pCO2 (35-45) mmHg pO2 (75-100) mmHg pO2/FiO2 Ratio % Base Excess (-2.0-2.0) O2 Saturation (94-100) g/dF ABG pH (7.35-7.45) ABG HCO3 (22-28) ABG O2 Sat (Measured) (95-100) % Chip Test VBG pH (7.32-7.42) VBG pCO2 at Pat Temp (42-55) mm/Hg VBG pO2 at Pat Temp (25-40) mm/Hg VBG HCO3 (22-28) meq/L VBG O2 Sat (Tay) (95-100) VBG Base Excess (-2.0-2.0) VBG Hemoglobin VBG Carboxyhemoglobin (0.0-6.9) % T HGB A-a Gradient a/A Ratio Hemoglobin Carboxyhemoglobin (0.0-6.9) % THgb Methemoglobin (1.4-1.5) % POC Potassium (3.5-5.1) Temperature C POC O2 Flow Rate % Sodium (137-145) mmol/L Potassium 2.9 L* (3.5-5.1) mmol/L Chloride (98-107) mmol/L Carbon Dioxide (22-30) mmol/L Anion Gap (5-15) MEQ/L BUN (7-17) mg/dL Creatinine (0.52-1.04) mg/dL Estimated GFR ML/MIN Glucose (74-106) mg/dL POC Glucometer 142 H 130 H (74 to 106) mg/dL Hemoglobin A1c (4.5-6.0) % Lactic Acid (0.4-2.0) Calcium (8.4-10.2) mg/dL Phosphorus (2.5-4.5) mg/dL Magnesium (1.6-2.3) mg/dL Radiology Exams: Radiology Procedures Category Date Time Status CHEST 1 VIEW (PORTABLE) Stat Exams 10/27/20 04:03 Completed GALLBLADDER [US] Routine Exams 10/28/20 Ordered Multi-Disciplinary Progress Notes: Multi-Disciplinary Progress Notes 10/27/20 11:27 Case Management Note by Kaela Matute PATIENT STILL VERY LETHARGIC- WILL DEFER CASE MANAGEMENT ASSESSMENT UNTIL PATIENT MORE ALERT Initialized on 10/27/20 11:27 - END OF NOTE Assessment/Plan (1) DKA (diabetic ketoacidoses) Current Visit: Yes Status: Acute Qualifiers: Diabetes mellitus complication detail: without coma Assessment & Plan: improved, co2 still low Code(s): E11.10 - TYPE 2 DIABETES MELLITUS WITH KETOACIDOSIS WITHOUT COMA (2) Type 2 diabetes mellitus, uncontrolled Current Visit: No Status: Acute Code(s): E11.65 - TYPE 2 DIABETES MELLITUS WITH HYPERGLYCEMIA
[2020-10-28] MEDS: D5W/0.45NS W/ 20mEq KCl 1000 ML 1,000 ML IV SCH ×2 (09:03→17:40)
[2020-10-28] MEDS: Pepcid 20 MG VIAL IV SCH ×2 (09:44→21:04)
[2020-10-28] MEDS: Compazine 10 MG/2 ML IV PRN (09:44)
[2020-10-28] MEDS ORDERED: NON-FORMULARY ITEM (Levothyroxine Sodium [Levothyroxine] 25 MCG) PO SCH (10:00)
[2020-10-28 10:44] LABS: ANION GAP 11.4 MEQ/L (5-15); BLOOD UREA NITROGEN 6 mg/dL (7-17); CHLORIDE 114 mmol/L (98-107); Calcium 8.4 mg/dL (8.4-10.2); EST GLOMERULAR FILTRATION RATE > 60.0 ML/MIN; Glucose 83 mg/dL (74-106); SODIUM 138 mmol/L (137-145)
[2020-10-28 10:48] LABS: Carbon Dioxide 16 mmol/L (22-30)
[2020-10-28] MEDS ORDERED: Lantus Insulin SQ ONE (11:05)
--- NOTE | 2020-10-28 11:28 | XRAY ---
Indication: Nausea and vomiting. Two-dimensional gallbladder sonogram performed. Comparison: None Medical Record Administrator notes technically difficult exam as the patient noncompliant and unable to change position. Pancreas not visualized. Gallbladder and liver suboptimally visualized. Visualized gallbladder normally distended without obvious gallstones, wall thickening or pericholecystic fluid. Common bile duct measures 2.3 mm. Visualized liver negative for focal solid/cystic mass, hepatomegaly, or ascites. Right kidney sonographically unremarkable measuring 11.8 cm in length. Impression: Limited gallbladder sonogram as detailed. Nonvisualization pancreas. Remaining gallbladder sonogram grossly negative.
[2020-10-28] MEDS: SYNTHROID 25 MCG PO SCH (11:32)
[2020-10-28] MEDS ORDERED: MORPHINE SULFATE 4 MG INJ IV PRN (12:35)
[2020-10-28 13:12] LABS: AMYLASE < 30 U/L (30-110); LIPASE 20 U/L (23-300)
[2020-10-28] MEDS: TYLENOL 325 MG PO PRN ×2 (13:14→21:16)
[2020-10-28] MEDS: HUMALOG SQ PRN ×6 (13:28→22:36)
--- NOTE | 2020-10-28 13:28 | XRAY ---
Indication: Nausea and vomiting 3 days. Multiple contiguous axial images obtained through the abdomen and pelvis without contrast. Comparison: None Lung bases are clear with incidental right hemidiaphragm elevation. Heart is not enlarged. Several images slightly degraded by respiration artifact. Noncontrasted stomach and bowel loops appear nonobstructed. Normal appendix. Radiopacity in the ascending and transverse colon presumed ingested medication/bismuth or barium. Urinary bladder demonstrates tiny intraluminal air with Troncoso catheter in situ. No free fluid/air. Remaining liver, gallbladder, pancreas, spleen, adrenal glands, kidneys, ureters, bladder, and uterus are unremarkable for noncontrast exam. Minimal aortoiliac calcifications without AAA. Osseous structures intact with minimal/mild degenerative changes throughout the thoracolumbar spine. Impression: 1. Minimal respiration artifact. 2. Right hemidiaphragm elevation and Troncoso catheter in situ. 3. Remaining CT abdomen/pelvis without contrast exam is negative.
[2020-10-28] MEDS: CLINDAMYCIN-D5W 600 MG/50 ML*** 600 MG/50 ML BAG IV SCH ×2 (14:31→21:04)
[2020-10-28] MEDS ORDERED: SODIUM CHLORIDE 0.45% W/ 20 mEq KCL 1,000 ML IV ONE (20:05)
[2020-10-28] MEDS: POTASSIUM CHLORIDE IV SCH (20:12)
[2020-10-28] MEDS: SODIUM CHLORIDE 0.45% IV SCH (20:12)
[2020-10-28] MEDS: PROTONIX 40 MG IV IV SCH (20:12)
[2020-10-28 22:24] LABS: ANION GAP 10.6 MEQ/L (5-15); BLOOD UREA NITROGEN 3 mg/dL (7-17); CHLORIDE 112 mmol/L (98-107); Calcium 8.4 mg/dL (8.4-10.2); Carbon Dioxide 17 mmol/L (22-30); Creatinine 1 0.42 mg/dL (0.52-1.04); EST GLOMERULAR FILTRATION RATE > 60.0 ML/MIN; Glucose 163 mg/dL (74-106); Potassium 3.1 mmol/L (3.5-5.1); SODIUM 136 mmol/L (137-145)
[2020-10-29] MEDS: HUMALOG SQ PRN ×7 (02:39→20:02)
[2020-10-29] MEDS ORDERED: SODIUM CHLORIDE 0.45% W/ 20 mEq KCL 1,000 ML IV ONE (04:30)
[2020-10-29] MEDS: POTASSIUM CHLORIDE IV SCH (04:31)
[2020-10-29] MEDS: SODIUM CHLORIDE 0.45% IV SCH (04:31)
[2020-10-29 04:55] LABS: BASOPHIL % 0.2 % (0.0-0.4); Basophil (Absolute #) 0.01 (0-0.4); Eosinophil % 0.4 % (0.00-5.0); Eosinophil (Absolute #) 0.02 (0-0.5); Hematocrit 34.2 % (35-47); Hemoglobin 11.6 gm/dl (12.0-16.0); Lymphocyte (Absolute #) 1.32 (1.0-4.6); Lymphocytes % 25.2 % (24.0-44.0); Mean Cell Volume 85.9 fl (78-100); Mean Corpuscular Hemoglobin 29.1 pg (26-32); Mean Corpuscular Hgb Concent. 33.9 g/dl (32-36); Mean Platelet Volume 9.6 fl (7.5-11.0); Monocyte (Absolute #) 0.59 (0.0-1.3); Monocytes % 11.3 % (0.0-12.0); Neutrophil % 62.9 % (36.0-66.0); Platelet Count 298 K/mm3 (150-450); Red Blood Count 3.98 M/mm3 (4.1-5.4); Red Cell Distribution Width 13.5 % (11.5-14.0); White Blood Count 5.2 K/mm3 (4.0-10.5)
[2020-10-29] MEDS: CLINDAMYCIN-D5W 600 MG/50 ML*** 600 MG/50 ML BAG IV SCH (05:14)
[2020-10-29 05:15] LABS: ANION GAP 13.5 MEQ/L (5-15); BLOOD UREA NITROGEN 3 mg/dL (7-17); CHLORIDE 109 mmol/L (98-107); Calcium 8.3 mg/dL (8.4-10.2); Creatinine 1 0.48 mg/dL (0.52-1.04); EST GLOMERULAR FILTRATION RATE > 60.0 ML/MIN; Glucose 230 mg/dL (74-106); Potassium 3.4 mmol/L (3.5-5.1); SODIUM 136 mmol/L (137-145)
[2020-10-29 05:21] LABS: Carbon Dioxide 17 mmol/L (22-30)
[2020-10-29] MEDS: Compazine 10 MG/2 ML IV PRN (07:50)
[2020-10-29] MEDS ORDERED: NORCO 5/325 MG PO PRN (09:07)
--- NOTE | 2020-10-29 09:10 | PCM.NOTE ---
Date and Time: 10/29/20907 Subjective Assessment: patient still having singificant nausea and poor po intake but improving, c/o headache Objective Exam General Appearance: no apparent distress, obese Respiratory Exam: normal breath sounds, lungs clear, No respiratory distress Cardiovascular Exam: regular rate/rhythm, normal heart sounds Gastrointestinal/Abdomen Exam: soft, No tenderness, No mass Extremity Exam: normal inspection, normal range of motion OBJECTIVE DATA Vital Signs: Vital Signs - 24 hr Temp Pulse Resp BP Pulse Ox 10/29/20 08:00 96 H 21 10/29/20 07:19 98 F 103 H 21 153/83 98 10/29/20 07:02 97 10/29/20 03:55 98.6 F 96 H 19 126/82 100 10/29/20 00:01 102 H 10/29/20 00:00 97.3 F 102 H 15 132/71 100 10/28/20 20:15 98.6 F 107 H 21 159/95 100 10/28/20 16:00 98.3 F 113 H 19 143/78 100 10/28/20 12:00 98.2 F 94 H 18 104/68 97 Pain Assessment - Last Documented Pain Intensity 0 Pain Scale Used [facility] Intake and Output: Intake & Output 10/26/20 10/27/20 10/28/20 10/29/20 11:59 11:59 11:59 11:59 Intake Total 1999 3901 4252 Output Total 1000 2350 2750 Balance 1000 1551 1502 Weight 119.5 kg 121.9 kg 121.9 kg Lab Results: Lab Results-Last 24 Hours 10/28/20 10/28/20 10/28/20 Range/Units 09:14 10:12 10:15 WBC (4.0-10.5) K/mm3 RBC (4.1-5.4) M/mm3 Hgb (12.0-16.0) gm/dl Hct (35-47) % MCV (78-100) fl MCH (26-32) pg MCHC (32-36) g/dl RDW (11.5-14.0) % Plt Count (150-450) K/mm3 MPV (7.5-11.0) fl Gran % (36.0-66.0) % Eos # (Auto) (0-0.5) Absolute Lymphs (auto) (1.0-4.6) Absolute Monos (auto) (0.0-1.3) Lymphocytes % (24.0-44.0) % Monocytes % (0.0-12.0) % Eosinophils % (0.00-5.0) % Basophils % (0.0-0.4) % Absolute Granulocytes (1.4-6.9) Basophils # (0-0.4) Sodium (137-145) mmol/L Potassium (3.5-5.1) mmol/L Chloride (98-107) mmol/L Carbon Dioxide (22-30) mmol/L Anion Gap (5-15) MEQ/L BUN (7-17) mg/dL Creatinine (0.52-1.04) mg/dL Estimated GFR ML/MIN Glucose (74-106) mg/dL POC Glucometer 105 80 (74 to 106) mg/dL Calcium (8.4-10.2) mg/dL Amylase < 30 L (30-110) U/L Lipase 20 L (23-300) U/L 10/28/20 10/28/20 10/28/20 Range/Units 10:25 11:02 12:06 WBC (4.0-10.5) K/mm3 RBC (4.1-5.4) M/mm3 Hgb (12.0-16.0) gm/dl Hct (35-47) % MCV (78-100) fl MCH (26-32) pg MCHC (32-36) g/dl RDW (11.5-14.0) % Plt Count (150-450) K/mm3 MPV (7.5-11.0) fl Gran % (36.0-66.0) % Eos # (Auto) (0-0.5) Absolute Lymphs (auto) (1.0-4.6) Absolute Monos (auto) (0.0-1.3) Lymphocytes % (24.0-44.0) % Monocytes % (0.0-12.0) % Eosinophils % (0.00-5.0) % Basophils % (0.0-0.4) % Absolute Granulocytes (1.4-6.9) Basophils # (0-0.4) Sodium 138 (137-145) mmol/L Potassium 3.0 L (3.5-5.1) mmol/L Chloride 114 H (98-107) mmol/L Carbon Dioxide 16 L* (22-30) mmol/L Anion Gap 11.4 (5-15) MEQ/L BUN 6 L (7-17) mg/dL Creatinine 0.40 L (0.52-1.04) mg/dL Estimated GFR > 60.0 ML/MIN Glucose 83 (74-106) mg/dL POC Glucometer 69 L 130 H (74 to 106) mg/dL Calcium 8.4 (8.4-10.2) mg/dL Amylase (30-110) U/L Lipase (23-300) U/L 10/28/20 10/28/20 10/28/20 Range/Units 13:21 14:15 15:10 WBC (4.0-10.5) K/mm3 RBC (4.1-5.4) M/mm3 Hgb (12.0-16.0) gm/dl Hct (35-47) % MCV (78-100) fl MCH (26-32) pg MCHC (32-36) g/dl RDW (11.5-14.0) % Plt Count (150-450) K/mm3 MPV (7.5-11.0) fl Gran % (36.0-66.0) % Eos # (Auto) (0-0.5) Absolute Lymphs (auto) (1.0-4.6) Absolute Monos (auto) (0.0-1.3) Lymphocytes % (24.0-44.0) % Monocytes % (0.0-12.0) % Eosinophils % (0.00-5.0) % Basophils % (0.0-0.4) % Absolute Granulocytes (1.4-6.9) Basophils # (0-0.4) Sodium (137-145) mmol/L Potassium (3.5-5.1) mmol/L Chloride (98-107) mmol/L Carbon Dioxide (22-30) mmol/L Anion Gap (5-15) MEQ/L BUN (7-17) mg/dL Creatinine (0.52-1.04) mg/dL Estimated GFR ML/MIN Glucose (74-106) mg/dL POC Glucometer 207 H 259 H 273 H (74 to 106) mg/dL Calcium (8.4-10.2) mg/dL Amylase (30-110) U/L Lipase (23-300) U/L 10/28/20 10/28/20 10/28/20 Range/Units 16:31 16:40 18:35 WBC (4.0-10.5) K/mm3 RBC (4.1-5.4) M/mm3 Hgb (12.0-16.0) gm/dl Hct (35-47) % MCV (78-100) fl MCH (26-32) pg MCHC (32-36) g/dl RDW (11.5-14.0) % Plt Count (150-450) K/mm3 MPV (7.5-11.0) fl Gran % (36.0-66.0) % Eos # (Auto) (0-0.5) Absolute Lymphs (auto) (1.0-4.6) Absolute Monos (auto) (0.0-1.3) Lymphocytes % (24.0-44.0) % Monocytes % (0.0-12.0) % Eosinophils % (0.00-5.0) % Basophils % (0.0-0.4) % Absolute Granulocytes (1.4-6.9) Basophils # (0-0.4) Sodium (137-145) mmol/L Potassium 3.7 D (3.5-5.1) mmol/L Chloride (98-107) mmol/L Carbon Dioxide (22-30) mmol/L Anion Gap (5-15) MEQ/L BUN (7-17) mg/dL Creatinine (0.52-1.04) mg/dL Estimated GFR ML/MIN Glucose (74-106) mg/dL POC Glucometer 288 H 286 H (74 to 106) mg/dL Calcium (8.4-10.2) mg/dL Amylase (30-110) U/L Lipase (23-300) U/L 10/28/20 10/28/20 10/28/20 Range/Units 19:58 22:00 23:52 WBC (4.0-10.5) K/mm3 RBC (4.1-5.4) M/mm3 Hgb (12.0-16.0) gm/dl Hct (35-47) % MCV (78-100) fl MCH (26-32) pg MCHC (32-36) g/dl RDW (11.5-14.0) % Plt Count (150-450) K/mm3 MPV (7.5-11.0) fl Gran % (36.0-66.0) % Eos # (Auto) (0-0.5) Absolute Lymphs (auto) (1.0-4.6) Absolute Monos (auto) (0.0-1.3) Lymphocytes % (24.0-44.0) % Monocytes % (0.0-12.0) % Eosinophils % (0.00-5.0) % Basophils % (0.0-0.4) % Absolute Granulocytes (1.4-6.9) Basophils # (0-0.4) Sodium 136 L (137-145) mmol/L Potassium 3.1 L (3.5-5.1) mmol/L Chloride 112 H (98-107) mmol/L Carbon Dioxide 17 L (22-30) mmol/L Anion Gap 10.6 (5-15) MEQ/L BUN 3 L (7-17) mg/dL Creatinine 0.42 L (0.52-1.04) mg/dL Estimated GFR > 60.0 ML/MIN Glucose 163 H (74-106) mg/dL POC Glucometer 247 H 151 H (74 to 106) mg/dL Calcium 8.4 (8.4-10.2) mg/dL Amylase (30-110) U/L Lipase (23-300) U/L 10/29/20 10/29/20 10/29/20 Range/Units 02:32 04:24 04:26 WBC 5.2 (4.0-10.5) K/mm3 RBC 3.98 L (4.1-5.4) M/mm3 Hgb 11.6 L (12.0-16.0) gm/dl Hct 34.2 L (35-47) % MCV 85.9 (78-100) fl MCH 29.1 (26-32) pg MCHC 33.9 (32-36) g/dl RDW 13.5 (11.5-14.0) % Plt Count 298 (150-450) K/mm3 MPV 9.6 (7.5-11.0) fl Gran % 62.9 (36.0-66.0) % Eos # (Auto) 0.02 (0-0.5) Absolute Lymphs (auto) 1.32 (1.0-4.6) Absolute Monos (auto) 0.59 (0.0-1.3) Lymphocytes % 25.2 (24.0-44.0) % Monocytes % 11.3 (0.0-12.0) % Eosinophils % 0.4 (0.00-5.0) % Basophils % 0.2 (0.0-0.4) % Absolute Granulocytes 3.30 (1.4-6.9) Basophils # 0.01 (0-0.4) Sodium (137-145) mmol/L Potassium (3.5-5.1) mmol/L Chloride (98-107) mmol/L Carbon Dioxide (22-30) mmol/L Anion Gap (5-15) MEQ/L BUN (7-17) mg/dL Creatinine (0.52-1.04) mg/dL Estimated GFR ML/MIN Glucose (74-106) mg/dL POC Glucometer 227 H 207 H (74 to 106) mg/dL Calcium (8.4-10.2) mg/dL Amylase (30-110) U/L Lipase (23-300) U/L 10/29/20 10/29/20 10/29/20 Range/Units 04:26 06:01 07:55 WBC (4.0-10.5) K/mm3 RBC (4.1-5.4) M/mm3 Hgb (12.0-16.0) gm/dl Hct (35-47) % MCV (78-100) fl MCH (26-32) pg MCHC (32-36) g/dl RDW (11.5-14.0) % Plt Count (150-450) K/mm3 MPV (7.5-11.0) fl Gran % (36.0-66.0) % Eos # (Auto) (0-0.5) Absolute Lymphs (auto) (1.0-4.6) Absolute Monos (auto) (0.0-1.3) Lymphocytes % (24.0-44.0) % Monocytes % (0.0-12.0) % Eosinophils % (0.00-5.0) % Basophils % (0.0-0.4) % Absolute Granulocytes (1.4-6.9) Basophils # (0-0.4) Sodium 136 L (137-145) mmol/L Potassium 3.4 L (3.5-5.1) mmol/L Chloride 109 H (98-107) mmol/L Carbon Dioxide 17 L (22-30) mmol/L Anion Gap 13.5 (5-15) MEQ/L BUN 3 L (7-17) mg/dL Creatinine 0.48 L (0.52-1.04) mg/dL Estimated GFR > 60.0 ML/MIN Glucose 230 H (74-106) mg/dL POC Glucometer 186 H 161 H (74 to 106) mg/dL Calcium 8.3 L (8.4-10.2) mg/dL Amylase (30-110) U/L Lipase (23-300) U/L Radiology Exams: Radiology Procedures Category Date Time Status ABDOMEN AND PELVIS W/0 CONTRAS [CT] Routine Exams 10/28/20 13:03 Completed GALLBLADDER [US] Routine Exams 10/28/20 10:44 Completed Assessment/Plan (1) DKA (diabetic ketoacidoses) Current Visit: Yes Status: Acute Qualifiers: Diabetes mellitus complication detail: without coma Assessment & Plan: resolved, switched to basal insulin with SSI, increase lantus to 20u and attempt to advance diet. Code(s): E11.10 - TYPE 2 DIABETES MELLITUS WITH KETOACIDOSIS WITHOUT COMA (2) UTI (urinary tract infection) Current Visit: Yes Status: Acute Assessment & Plan: vanc based on culture Code(s): N39.0 - URINARY TRACT INFECTION, SITE NOT SPECIFIED (3) Labial abscess Current Visit: No Status: Acute Onset Date: ~09/17/18 Assessment & Plan: change to vanc from cleocin due to urine culture with strep agal Code(s): N76.4 - ABSCESS OF VULVA (4) Type 2 diabetes mellitus, uncontrolled Current Visit: No Status: Acute Code(s): E11.65 - TYPE 2 DIABETES MELLITUS WITH HYPERGLYCEMIA
[2020-10-29] MEDS ORDERED: VANCOCIN 1 GM VIAL*** 1 GM in Sodium Chloride 0.9% 250 ML 250 ML IV SCH (09:30)
[2020-10-29] MEDS: SYNTHROID 25 MCG PO SCH (09:35)
[2020-10-29] MEDS: Pepcid 20 MG VIAL IV SCH ×2 (09:36→21:05)
[2020-10-29] MEDS: Lantus Insulin SQ SCH (09:36)
[2020-10-29] MEDS: VANCOMYCIN 1.25 GM/250 ML BAG 1.25 GM/250 ML PIGGYBACK IV SCH ×2 (09:38→17:25)
[2020-10-29] MEDS: SODIUM CHLORIDE 0.45% W/ 20 mEq KCL 1,000 ML IV SCH ×2 (14:15→20:02)
[2020-10-29] MEDS: PROTONIX 40 MG IV IV SCH (20:01)
[2020-10-30] MEDS: HUMALOG SQ PRN ×3 (00:13→08:34)
[2020-10-30] MEDS: VANCOMYCIN 1.25 GM/250 ML BAG 1.25 GM/250 ML PIGGYBACK IV SCH ×2 (01:15→10:34)
[2020-10-30] MEDS: SODIUM CHLORIDE 0.45% W/ 20 mEq KCL 1,000 ML IV SCH ×2 (01:15→04:43)
[2020-10-30] MEDS: Compazine 10 MG/2 ML IV PRN (04:26)
[2020-10-30 05:29] LABS: Absolute Neutrophil Ct (ANC) 3.95 (1.4-6.9); BASOPHIL % 0.3 % (0.0-0.4); Basophil (Absolute #) 0.02 (0-0.4); Eosinophil % 0.5 % (0.00-5.0); Eosinophil (Absolute #) 0.03 (0-0.5); Hematocrit 36.9 % (35-47); Hemoglobin 12.4 gm/dl (12.0-16.0); Lymphocyte (Absolute #) 1.36 (1.0-4.6); Lymphocytes % 22.8 % (24.0-44.0); Mean Cell Volume 85.4 fl (78-100); Mean Corpuscular Hemoglobin 28.7 pg (26-32); Mean Corpuscular Hgb Concent. 33.6 g/dl (32-36); Monocyte (Absolute #) 0.61 (0.0-1.3); Monocytes % 10.2 % (0.0-12.0); Neutrophil % 66.2 % (36.0-66.0); Platelet Count 277 K/mm3 (150-450); Red Blood Count 4.32 M/mm3 (4.1-5.4); Red Cell Distribution Width 13.3 % (11.5-14.0)
[2020-10-30 05:47] LABS: ALBUMIN 3.5 g/dL (3.5-5.0); ALKALINE PHOSPHATASE 106 U/L (38-126); ANION GAP 14.4 MEQ/L (5-15); CHLORIDE 104 mmol/L (98-107); Calcium 8.5 mg/dL (8.4-10.2); Carbon Dioxide 19 mmol/L (22-30); Creatinine 1 0.38 mg/dL (0.52-1.04); EST GLOMERULAR FILTRATION RATE > 60.0 ML/MIN; Glucose 271 mg/dL (74-106); Potassium 3.4 mmol/L (3.5-5.1); SGOT/AST 18 U/L (14-36); SGPT/ALT 11 U/L (0-35); SODIUM 134 mmol/L (137-145); Total Protein 6.8 g/dL (6.3-8.2)
[2020-10-30 05:58] LABS: BLOOD UREA NITROGEN 2 mg/dL (7-17)
--- NOTE | 2020-10-30 06:36 | PCM.NOTE ---
Date and Time: 10/30/20633 Subjective Assessment: patient feeling much better, still having some nausea and requiring compazine but tolerating some po intake. no abd pain, abscess drained on its own and feeling much better Objective Exam General Appearance: no apparent distress, obese Neurologic Exam: alert, oriented x 3 Respiratory Exam: normal breath sounds, lungs clear, No respiratory distress Cardiovascular Exam: regular rate/rhythm, normal heart sounds Gastrointestinal/Abdomen Exam: soft, other (right labial induration, drainage present), No tenderness, No mass OBJECTIVE DATA Vital Signs: Vital Signs - 24 hr Temp Pulse Resp BP Pulse Ox 10/30/20 04:00 99.3 F 104 H 18 166/76 97 10/30/20 00:15 98.1 F 100 H 18 150/84 99 10/29/20 20:09 97.7 F 94 H 17 148/94 99 10/29/20 19:21 99 10/29/20 16:00 97.9 F 97 H 17 131/92 100 10/29/20 12:00 19 10/29/20 11:48 98.2 F 88 19 130/90 97 10/29/20 08:00 96 H 21 10/29/20 07:19 98 F 103 H 21 153/83 98 10/29/20 07:02 97 Pain Assessment - Last Documented Pain Intensity 5 Pain Scale Used 0-10 Pain Scale Intake and Output: Intake & Output 10/27/20 10/28/20 10/29/20 10/30/20 11:59 11:59 11:59 11:59 Intake Total 1999 3901 4252 1862 Output Total 999 2350 3250 2000 Balance 1000 1551 1002 -138 Weight 119.5 kg 121.9 kg 121.9 kg 121.9 kg Lab Results: Lab Results-Last 24 Hours 10/29/20 10/29/20 10/29/20 Range/Units 07:55 11:37 15:49 WBC (4.0-10.5) K/mm3 RBC (4.1-5.4) M/mm3 Hgb (12.0-16.0) gm/dl Hct (35-47) % MCV (78-100) fl MCH (26-32) pg MCHC (32-36) g/dl RDW (11.5-14.0) % Plt Count (150-450) K/mm3 MPV (7.5-11.0) fl Gran % (36.0-66.0) % Eos # (Auto) (0-0.5) Absolute Lymphs (auto) (1.0-4.6) Absolute Monos (auto) (0.0-1.3) Lymphocytes % (24.0-44.0) % Monocytes % (0.0-12.0) % Eosinophils % (0.00-5.0) % Basophils % (0.0-0.4) % Absolute Granulocytes (1.4-6.9) Basophils # (0-0.4) Sodium (137-145) mmol/L Potassium (3.5-5.1) mmol/L Chloride (98-107) mmol/L Carbon Dioxide (22-30) mmol/L Anion Gap (5-15) MEQ/L BUN (7-17) mg/dL Creatinine (0.52-1.04) mg/dL Estimated GFR ML/MIN Glucose (74-106) mg/dL POC Glucometer 161 H 228 H 285 H (74 to 106) mg/dL Calcium (8.4-10.2) mg/dL Total Bilirubin (0.2-1.3) mg/dL AST (14-36) U/L ALT (0-35) U/L Alkaline Phosphatase (38-126) U/L Serum Total Protein (6.3-8.2) g/dL Albumin (3.5-5.0) g/dL 10/29/20 10/30/20 10/30/20 Range/Units 19:55 00:10 04:30 WBC 6.0 (4.0-10.5) K/mm3 RBC 4.32 (4.1-5.4) M/mm3 Hgb 12.4 (12.0-16.0) gm/dl Hct 36.9 (35-47) % MCV 85.4 (78-100) fl MCH 28.7 (26-32) pg MCHC 33.6 (32-36) g/dl RDW 13.3 (11.5-14.0) % Plt Count 277 (150-450) K/mm3 MPV 10.0 (7.5-11.0) fl Gran % 66.2 H (36.0-66.0) % Eos # (Auto) 0.03 (0-0.5) Absolute Lymphs (auto) 1.36 (1.0-4.6) Absolute Monos (auto) 0.61 (0.0-1.3) Lymphocytes % 22.8 L (24.0-44.0) % Monocytes % 10.2 (0.0-12.0) % Eosinophils % 0.5 (0.00-5.0) % Basophils % 0.3 (0.0-0.4) % Absolute Granulocytes 3.95 (1.4-6.9) Basophils # 0.02 (0-0.4) Sodium (137-145) mmol/L Potassium (3.5-5.1) mmol/L Chloride (98-107) mmol/L Carbon Dioxide (22-30) mmol/L Anion Gap (5-15) MEQ/L BUN (7-17) mg/dL Creatinine (0.52-1.04) mg/dL Estimated GFR ML/MIN Glucose (74-106) mg/dL POC Glucometer 266 H 262 H (74 to 106) mg/dL Calcium (8.4-10.2) mg/dL Total Bilirubin (0.2-1.3) mg/dL AST (14-36) U/L ALT (0-35) U/L Alkaline Phosphatase (38-126) U/L Serum Total Protein (6.3-8.2) g/dL Albumin (3.5-5.0) g/dL 10/30/20 10/30/20 Range/Units 04:30 04:31 WBC (4.0-10.5) K/mm3 RBC (4.1-5.4) M/mm3 Hgb (12.0-16.0) gm/dl Hct (35-47) % MCV (78-100) fl MCH (26-32) pg MCHC (32-36) g/dl RDW (11.5-14.0) % Plt Count (150-450) K/mm3 MPV (7.5-11.0) fl Gran % (36.0-66.0) % Eos # (Auto) (0-0.5) Absolute Lymphs (auto) (1.0-4.6) Absolute Monos (auto) (0.0-1.3) Lymphocytes % (24.0-44.0) % Monocytes % (0.0-12.0) % Eosinophils % (0.00-5.0) % Basophils % (0.0-0.4) % Absolute Granulocytes (1.4-6.9) Basophils # (0-0.4) Sodium 134 L (137-145) mmol/L Potassium 3.4 L (3.5-5.1) mmol/L Chloride 104 (98-107) mmol/L Carbon Dioxide 19 L (22-30) mmol/L Anion Gap 14.4 (5-15) MEQ/L BUN 2 L (7-17) mg/dL Creatinine 0.38 L (0.52-1.04) mg/dL Estimated GFR > 60.0 ML/MIN Glucose 271 H (74-106) mg/dL POC Glucometer 257 H (74 to 106) mg/dL Calcium 8.5 (8.4-10.2) mg/dL Total Bilirubin 0.60 (0.2-1.3) mg/dL AST 18 (14-36) U/L ALT 11 (0-35) U/L Alkaline Phosphatase 106 (38-126) U/L Serum Total Protein 6.8 (6.3-8.2) g/dL Albumin 3.5 (3.5-5.0) g/dL Radiology Exams: Radiology Procedures Category Date Time Status ABDOMEN AND PELVIS W/0 CONTRAS [CT] Routine Exams 10/28/20 13:03 Completed GALLBLADDER [US] Routine Exams 10/28/20 10:44 Completed Multi-Disciplinary Progress Notes: Multi-Disciplinary Progress Notes 10/29/20 10:22 Case Management Note by Kaela Matute NO CHANGE IN DC PLANS AT THIS TIME Initialized on 10/29/20 10:22 - END OF NOTE Assessment/Plan (1) DKA (diabetic ketoacidoses) Current Visit: Yes Status: Acute Qualifiers: Diabetes mellitus complication detail: without coma Assessment & Plan: resolved at this time, tolerating po intake on sliding scale insulin and bolus with lantus. plan to d/c home when able to tolerate adequate po intake Code(s): E11.10 - TYPE 2 DIABETES MELLITUS WITH KETOACIDOSIS WITHOUT COMA (2) UTI (urinary tract infection) Current Visit: Yes Status: Acute Assessment & Plan: on vanc for strep in urine culture Code(s): N39.0 - URINARY TRACT INFECTION, SITE NOT SPECIFIED (3) Labial abscess Current Visit: No Status: Acute Onset Date: ~09/17/18 Assessment & Plan: vanc Code(s): N76.4 - ABSCESS OF VULVA (4) Type 2 diabetes mellitus, uncontrolled Current Visit: No Status: Acute Code(s): E11.65 - TYPE 2 DIABETES MELLITUS WITH HYPERGLYCEMIA
[2020-10-30] MEDS: Pepcid 20 MG VIAL IV SCH (09:05)
[2020-10-30] MEDS: SYNTHROID 25 MCG PO SCH (09:05)
[2020-10-30] MEDS: Lantus Insulin SQ SCH (09:06)
[2020-10-30] MEDS ORDERED: TROUGH DRUG LEVELS IJ ONE (09:30)
[2020-10-30 12:08] VITALS: BP 139/89; PULSE 108; O2SAT 97
--- NOTE | 2020-10-30 12:15 | PCM.DS ---
Discharge Summary Date of Admission: 10/27/20 07:34 Admitting Physician: MILO ESPINO Primary Care Provider: MILO ESPINO Allergies Allergies latex Allergy (Intermediate, Verified 10/27/20 04:20) [facility] Summary - Hospital Course Hospital Course: patient was admitted with vomiting, severe DKA and doing much better. now tolerating po intake, has a labial ascess that has drained spontaneously and improved with antibiotics - Vitals & Intake/Output Vital Signs: Vital Signs Temperature 98.9 F 10/30/20 12:00 Pulse Rate 108 H 10/30/20 12:00 Respiratory Rate 12 10/30/20 12:00 Blood Pressure 139/89 10/30/20 12:00 O2 Sat by Pulse Oximetry 97 10/30/20 12:00 Intake & Output: Intake & Output 10/28/20 10/29/20 10/30/20 10/31/20 11:59 11:59 11:59 11:59 Intake Total 3901 4252 2102 Output Total 2350 3250 2000 Balance 1551 1002 102 Weight 121.9 kg 121.9 kg 126 kg - Lab Result Diagrams: 10/30/20 04:30 10/30/20 04:30 Lab Results-Last 24 Hrs: Lab Results-Last 24 Hours 10/29/20 10/29/20 10/30/20 Range/Units 15:49 19:55 00:10 WBC (4.0-10.5) K/mm3 RBC (4.1-5.4) M/mm3 Hgb (12.0-16.0) gm/dl Hct (35-47) % MCV (78-100) fl MCH (26-32) pg MCHC (32-36) g/dl RDW (11.5-14.0) % Plt Count (150-450) K/mm3 MPV (7.5-11.0) fl Gran % (36.0-66.0) % Eos # (Auto) (0-0.5) Absolute Lymphs (auto) (1.0-4.6) Absolute Monos (auto) (0.0-1.3) Lymphocytes % (24.0-44.0) % Monocytes % (0.0-12.0) % Eosinophils % (0.00-5.0) % Basophils % (0.0-0.4) % Absolute Granulocytes (1.4-6.9) Basophils # (0-0.4) Sodium (137-145) mmol/L Potassium (3.5-5.1) mmol/L Chloride (98-107) mmol/L Carbon Dioxide (22-30) mmol/L Anion Gap (5-15) MEQ/L BUN (7-17) mg/dL Creatinine (0.52-1.04) mg/dL Estimated GFR ML/MIN Glucose (74-106) mg/dL POC Glucometer 285 H 266 H 262 H (74 to 106) mg/dL Calcium (8.4-10.2) mg/dL Total Bilirubin (0.2-1.3) mg/dL AST (14-36) U/L ALT (0-35) U/L Alkaline Phosphatase (38-126) U/L Serum Total Protein (6.3-8.2) g/dL Albumin (3.5-5.0) g/dL Vancomycin Trough (10-20) ug/mL 10/30/20 10/30/20 10/30/20 Range/Units 04:30 04:30 04:31 WBC 6.0 (4.0-10.5) K/mm3 RBC 4.32 (4.1-5.4) M/mm3 Hgb 12.4 (12.0-16.0) gm/dl Hct 36.9 (35-47) % MCV 85.4 (78-100) fl MCH 28.7 (26-32) pg MCHC 33.6 (32-36) g/dl RDW 13.3 (11.5-14.0) % Plt Count 277 (150-450) K/mm3 MPV 10.0 (7.5-11.0) fl Gran % 66.2 H (36.0-66.0) % Eos # (Auto) 0.03 (0-0.5) Absolute Lymphs (auto) 1.36 (1.0-4.6) Absolute Monos (auto) 0.61 (0.0-1.3) Lymphocytes % 22.8 L (24.0-44.0) % Monocytes % 10.2 (0.0-12.0) % Eosinophils % 0.5 (0.00-5.0) % Basophils % 0.3 (0.0-0.4) % Absolute Granulocytes 3.95 (1.4-6.9) Basophils # 0.02 (0-0.4) Sodium 134 L (137-145) mmol/L Potassium 3.4 L (3.5-5.1) mmol/L Chloride 104 (98-107) mmol/L Carbon Dioxide 19 L (22-30) mmol/L Anion Gap 14.4 (5-15) MEQ/L BUN 2 L (7-17) mg/dL Creatinine 0.38 L (0.52-1.04) mg/dL Estimated GFR > 60.0 ML/MIN Glucose 271 H (74-106) mg/dL POC Glucometer 257 H (74 to 106) mg/dL Calcium 8.5 (8.4-10.2) mg/dL Total Bilirubin 0.60 (0.2-1.3) mg/dL AST 18 (14-36) U/L ALT 11 (0-35) U/L Alkaline Phosphatase 106 (38-126) U/L Serum Total Protein 6.8 (6.3-8.2) g/dL Albumin 3.5 (3.5-5.0) g/dL Vancomycin Trough (10-20) ug/mL 10/30/20 10/30/20 Range/Units 07:29 09:40 WBC (4.0-10.5) K/mm3 RBC (4.1-5.4) M/mm3 Hgb (12.0-16.0) gm/dl Hct (35-47) % MCV (78-100) fl MCH (26-32) pg MCHC (32-36) g/dl RDW (11.5-14.0) % Plt Count (150-450) K/mm3 MPV (7.5-11.0) fl Gran % (36.0-66.0) % Eos # (Auto) (0-0.5) Absolute Lymphs (auto) (1.0-4.6) Absolute Monos (auto) (0.0-1.3) Lymphocytes % (24.0-44.0) % Monocytes % (0.0-12.0) % Eosinophils % (0.00-5.0) % Basophils % (0.0-0.4) % Absolute Granulocytes (1.4-6.9) Basophils # (0-0.4) Sodium (137-145) mmol/L Potassium (3.5-5.1) mmol/L Chloride (98-107) mmol/L Carbon Dioxide (22-30) mmol/L Anion Gap (5-15) MEQ/L BUN (7-17) mg/dL Creatinine (0.52-1.04) mg/dL Estimated GFR ML/MIN Glucose (74-106) mg/dL POC Glucometer 212 H (74 to 106) mg/dL Calcium (8.4-10.2) mg/dL Total Bilirubin (0.2-1.3) mg/dL AST (14-36) U/L ALT (0-35) U/L Alkaline Phosphatase (38-126) U/L Serum Total Protein (6.3-8.2) g/dL Albumin (3.5-5.0) g/dL Vancomycin Trough 7.65 L (10-20) ug/mL Micro Results-Entire Visit: Microbiology 10/27/20 04:56 Urine Culture - Final Urine, Void Streptococcus Agalactiae 10/27/20 04:35 Blood Culture - Preliminary Blood NO GROWTH TO DATE 10/27/20 04:20 Blood Culture - Preliminary Blood NO GROWTH TO DATE Accuchecks Date 10/29/20 Date 10/29/20 Date 10/29/20 Time 00:00 Time 16:06 Time 16:06 - Radiology Exams Ordered Rad Exams-Entire Visit: Radiology Procedures Category Date Time Status ABDOMEN AND PELVIS W/0 CONTRAS [CT] Routine Exams 10/28/20 13:03 Completed - Procedures and Test Procedures and Tests throughout Hospitalization: Therapy Orders & Screens 10/27/20 08:23 Oxygen Nasal Cannula 2 lpm Comment: KEEP SATS >95% Diagnosis: DKA Discharge Exam General Appearance: no apparent distress, alert, obese Respiratory Exam: normal breath sounds, lungs clear, No respiratory distress Cardiovascular Exam: regular rate/rhythm, normal heart sounds Gastrointestinal/Abdomen Exam: soft, other (drained, healing abscess right labia), No tenderness, No mass Final Diagnosis/Problem List - Final Discharge Diagnosis/Problem (1) DKA (diabetic ketoacidoses) Current Visit: Yes Status: Acute Code(s): E11.10 - TYPE 2 DIABETES MELLITUS WITH KETOACIDOSIS WITHOUT COMA (2) UTI (urinary tract infection) Current Visit: Yes Status: Acute Assessment & Plan: home on levaquin Code(s): N39.0 - URINARY TRACT INFECTION, SITE NOT SPECIFIED (3) Labial abscess Current Visit: No Status: Acute Onset Date: ~09/17/18 Assessment & Plan: levaquin Code(s): N76.4 - ABSCESS OF VULVA (4) Type 2 diabetes mellitus, uncontrolled Current Visit: No Status: Acute Code(s): E11.65 - TYPE 2 DIABETES MELLITUS WITH HYPERGLYCEMIA - Discharge Disposition: Home, Self-Care Condition: Good Prescriptions: New Levofloxacin [Levaquin] 500 mg PO DAILY #7 tablet Promethazine HCl 25 mg [Phenergan 25 mg] 25 mg PO Q6H PRN PRN #20 tablet PRN Reason: Nausea Continue Insulin Aspart [Novolog] 50 unit SQ TIDWMEALS Levothyroxine Sodium [Levothyroxine] 25 mcg PO DAILY Additional Instructions: take insulin as directed, return for inability to tolerate po intake. may take phenergan prn for nausea, caution may cause sedation. see Dr Espino in 1 week Follow up with: MILO ESPINO MD [Primary Care Provider] - 11/05/20 11:15 am
[2020-11-01] MEDS ORDERED: TROUGH DRUG LEVELS IJ ONE (09:30)
== END 2020-10-30 13:00 | disposition home or self-care (01) | DRG 638 ==
LOC: ED 04:01 → ICU 07:34 → MED SURG 10-30 02:10
PROVIDERS: ADMIT Family Medicine; ATTEND Family Medicine
DX: E11.10 Type 2 diabetes mellitus with ketoacidosis without coma (principal); N39.0 Urinary tract infection, site not specified; N76.4 Abscess of vulva; E11.65 Type 2 diabetes mellitus with hyperglycemia; R06.02 Shortness of breath; R11.2 Nausea with vomiting, unspecified; R10.9 Unspecified abdominal pain; R53.83 Other fatigue; R00.2 Palpitations; Z79.899 Other long term (current) drug therapy
CPT/HCPCS: 0241U; 36000; 36415; 36600; 71045; 74176; 76705; 80048; 80053; 80202; 81001; 82150; 82375; 82803; 82805; 82947; 83036; 83605; 83690; 83735; 84100; 84132; 84484; 84703; 85025; 87040; 87077; 87086; 87186; 93005; 93041; 94760; 96360; 96361; 96374; 96375; 99285; 99291; J1815; J1817; J2405; J3475; J3480; A9270-GY; J3370

== ENCOUNTER 2020-11-14 12:21 | Inpatient (IN) | payer OTHER ==
[2020-11-14] MEDS ORDERED: Sodium Chloride 0.9% 1000 ML 1,000 ML IV STA ×2 (12:42→15:30)
[2020-11-14] MEDS ORDERED: Sodium Chloride 0.9% 1000 ML 1,000 ML ONE ×2 (12:47→15:30)
--- NOTE | 2020-11-14 12:53 | ERPHSYRPT ---
- History of Present Illness Time Seen by Provider: 11/14/20 12:45 Patient Subjective Stated Complaint: Diarrhea Triage Nursing Assessment: Patient ambulated back to ED and transferred self to bed. Patient A+O X3. Patient's skin pink, warm and dry. Patient complains of diarrhea for the past 2 weeks. Patient states she was started on Levaquin 500mg daily for labial abscess. Patient states she stopped taking it on . Patient denies pain or discomfort. Abdomen soft and round with BS X 4. Physician History: Is a 45-year-old diabetic who was hospitalized 2 weeks ago with DKA. She is 45 years old and was being treated with Levaquin recently for an abscess in the inguinal area. Her dose was 500 mg/day she denies any other travel she denies any uncooked chicken or raw eggs etc. she does have a report of some blood in the stools she has numerous more than 10 stools per day. Timing/Duration: week(s) (2) Activities at Onset: none Quality: cramping Modifying Factors: Improves With: defecating Associated Symptoms: diarrhea Allergies/Adverse Reactions: latex Allergy (Intermediate, Verified 11/14/20 12:33) Rash Home Medications: Insulin Aspart [Novolog] 50 unit SQ TIDWMEALS 10/27/20 [History] Insulin Detemir [Levemir] 50 unit SQ BID 11/10/20 [History] Hx Tetanus, Diphtheria Vaccination/Date Given: No Hx Influenza Vaccination/Date Given: Yes Hx Pneumococcal Vaccination/Date Given: No Immunizations Up to Date: Yes Travel Risk - International Travel Have you traveled outside of the country in past 3 weeks: No - Coronavirus Screening Are you exhibiting any of the following symptoms?: No Close contact with a COVID-19 positive Pt in past 14-21 Days: No - Review of Systems Constitutional: No Fever, No Chills Eyes: No Symptoms Ears, Nose, & Throat: No Symptoms Respiratory: No Cough, No Dyspnea Cardiac: No Chest Pain, No Edema, No Syncope Abdominal/Gastrointestinal: Diarrhea, No Abdominal Pain, No Nausea, No Vomiting Genitourinary Symptoms: No Dysuria Musculoskeletal: No Back Pain, No Neck Pain Skin: No Rash Neurological: No Dizziness, No Focal Weakness, No Sensory Changes Psychological: No Symptoms Endocrine: No Symptoms All Other Systems: Reviewed and Negative - Past Medical History Pertinent Past Medical History: Yes Neurological History: No Pertinent History ENT History: No Pertinent History Cardiac History: No Pertinent History Respiratory History: Bronchitis Endocrine Medical History: Diabetes Type II, Hypothyroidism Musculoskeletal History: Arthritis GI Medical History: Hemorrhoids History: No Pertinent History Psycho-Social History: No Pertinent History Female Reproductive Disorders: No Pertinent History - Past Surgical History Past Surgical History: Yes Neuro Surgical History: No Pertinent History Cardiac: No Pertinent History Respiratory: No Pertinent History Gastrointestinal: No Pertinent History Genitourinary: No Pertinent History Musculoskeletal: No Pertinent History Female Surgical History: Section Other Surgical History: I & D labial abcess - Social History Smoking Status: Former smoker How long have you smoked: 14 Exposure to second hand smoke: No Drug Use: none Patient Lives Alone: No - Female History Hx Now: No - Nursing Vital Signs Nursing Vital Signs: Initial Vital Signs Temperature 98.4 F 11/14/20 12:36 Pulse Rate 120 H 11/14/20 12:36 Respiratory Rate 18 11/14/20 12:36 Blood Pressure 166/95 11/14/20 12:36 O2 Sat by Pulse Oximetry 98 11/14/20 12:36 Pain Scale Pain Intensity 0 - Physical Exam General Appearance: mild distress, alert Eye Exam: PERRL/EOMI, eyes nml inspection Ears, Nose, Throat Exam: normal ENT inspection, pharynx normal, moist mucous membranes Neck Exam: normal inspection, non-tender, supple, full range of motion Respiratory Exam: normal breath sounds, lungs clear, No respiratory distress Cardiovascular Exam: regular rate/rhythm, normal heart sounds Gastrointestinal/Abdomen Exam: soft, No tenderness, No mass Back Exam: normal inspection, normal range of motion, No CVA tenderness, No vertebral tenderness Extremity Exam: normal inspection, normal range of motion, pelvis stable Neurologic Exam: alert, oriented x 3, cooperative, normal mood/affect, nml cerebellar function, sensation nml, No motor deficits Skin Exam: normal color, warm, dry SpO2: 98 - Course Nursing assessment & vital signs reviewed: Yes - CT Exams Abdomen/Pelvis CT Interpretation: Other (Thickening and inflammation of the entire colon consistent with colitis) Ordered Tests: Active Orders 24 hr Category Date Time Status IV Insertion STAT Care 11/14/20 12:42 Active ABDOMEN AND PELVIS W CONTRAST [CT] Stat Exams 11/14/20 12:44 Taken AMYLASE Stat Lab 11/14/20 13:17 Completed CBC W DIFF Stat Lab 11/14/20 13:17 Completed CMP Stat Lab 11/14/20 13:17 Completed CULTURE,URINE Stat Lab 11/14/20 12:48 Received FECAL OCCULT BLOOD - SCREENING Stat Lab 11/14/20 13:48 Completed LIPASE Stat Lab 11/14/20 13:17 Completed Lactic Acid Stat Lab 11/14/20 12:42 Completed Lactic Acid Stat Lab 11/14/20 15:14 Completed UA W/RFX UR CULTURE Stat Lab 11/14/20 12:48 Completed Medication Summary Discontinued Medications Generic Name Dose Route Start Last Admin Trade Name Thu PRN Reason Stop Dose Admin Sodium Chloride 1,000 mls @ 999 mls/hr 11/14/20 12:42 11/14/20 13:49 Sodium Chloride 0.9% 1000 Ml IV 11/14/20 13:42 Infused .Q1H1M STA Infusion Sodium Chloride Confirm 11/14/20 12:47 Sodium Chloride 0.9% 1000 Ml Administered 11/14/20 12:48 Dose 1,000 mls @ ud .ROUTE .STK-MED ONE Sodium Chloride Confirm 11/14/20 15:30 Sodium Chloride 0.9% 1000 Ml Administered 11/14/20 15:31 Dose 1,000 mls @ ud .ROUTE .STK-MED ONE Lab/Rad Data: Laboratory Result Diagrams 11/14/20 13:17 11/14/20 13:17 Laboratory Results 11/14/20 11/14/20 11/14/20 Range/Units 15:14 13:48 13:48 WBC (4.0-10.5) K/mm3 RBC (4.1-5.4) M/mm3 Hgb (12.0-16.0) gm/dl Hct (35-47) % MCV (78-100) fl MCH (26-32) pg MCHC (32-36) g/dl RDW (11.5-14.0) % Plt Count (150-450) K/mm3 MPV (7.5-11.0) fl Gran % (36.0-66.0) % Eos # (Auto) (0-0.5) Absolute Lymphs (auto) (1.0-4.6) Absolute Monos (auto) (0.0-1.3) Lymphocytes % (24.0-44.0) % Monocytes % (0.0-12.0) % Eosinophils % (0.00-5.0) % Basophils % (0.0-0.4) % Absolute Granulocytes (1.4-6.9) Basophils # (0-0.4) Sodium (137-145) mmol/L Potassium (3.5-5.1) mmol/L Chloride (98-107) mmol/L Carbon Dioxide (22-30) mmol/L Anion Gap (5-15) MEQ/L BUN (7-17) mg/dL Creatinine (0.52-1.04) mg/dL Estimated GFR ML/MIN Glucose (74-106) mg/dL Lactic Acid 1.1 (0.4-2.0) Calcium (8.4-10.2) mg/dL Total Bilirubin (0.2-1.3) mg/dL AST (14-36) U/L ALT (0-35) U/L Alkaline Phosphatase (38-126) U/L Serum Total Protein (6.3-8.2) g/dL Albumin (3.5-5.0) g/dL Amylase (30-110) U/L Lipase (23-300) U/L Urine Color (YELLOW) Urine Appearance (CLEAR) Urine pH (5-6) Ur Specific [place] (1.005-1.025) Urine Protein (Negative) Urine Ketones (NEGATIVE) Urine Blood (0-5) Kade/ul Urine Nitrite (NEGATIVE) Urine Bilirubin (NEGATIVE) Urine Urobilinogen (0-1) mg/dL Ur Leukocyte Esterase (NEGATIVE) Urine WBC (Auto) (0-5) /HPF Urine RBC (Auto) (0-2) /HPF U Epithel Cells (Auto) (FEW) /HPF Urine Bacteria (Auto) (NEGATIVE) /HPF Urine Mucus (Auto) (NEGATIVE) /HPF Urine Yeast (Budding) (NEGATIVE) /HPF Urine Culture Reflexed (NO) Urine Glucose (NEGATIVE) mg/dL Stool Occult Blood POSITIVE A (NEGATIVE) C. difficile Screen NEGATIVE (NEGATIVE) C.difficile [id number] PRESUMPTIVE NEGATIVE (NEGATIVE) 11/14/20 11/14/20 11/14/20 Range/Units 13:17 13:17 12:48 WBC 6.2 (4.0-10.5) K/mm3 RBC 4.12 (4.1-5.4) M/mm3 Hgb 12.1 (12.0-16.0) gm/dl Hct 36.2 (35-47) % MCV 87.9 (78-100) fl MCH 29.4 (26-32) pg MCHC 33.4 (32-36) g/dl RDW 14.6 H (11.5-14.0) % Plt Count 382 (150-450) K/mm3 MPV 9.6 (7.5-11.0) fl Gran % 67.2 H (36.0-66.0) % Eos # (Auto) 0.12 (0-0.5) Absolute Lymphs (auto) 1.09 (1.0-4.6) Absolute Monos (auto) 0.80 (0.0-1.3) Lymphocytes % 17.5 L (24.0-44.0) % Monocytes % 12.9 H (0.0-12.0) % Eosinophils % 1.9 (0.00-5.0) % Basophils % 0.5 (0.0-0.4) % Absolute Granulocytes 4.18 (1.4-6.9) Basophils # 0.03 (0-0.4) Sodium 135 L (137-145) mmol/L Potassium 3.6 (3.5-5.1) mmol/L Chloride 99 (98-107) mmol/L Carbon Dioxide 25 (22-30) mmol/L Anion Gap 15.4 H (5-15) MEQ/L BUN 4 L (7-17) mg/dL Creatinine 0.47 L (0.52-1.04) mg/dL Estimated GFR > 60.0 ML/MIN Glucose 222 H (74-106) mg/dL Lactic Acid (0.4-2.0) Calcium 8.4 (8.4-10.2) mg/dL Total Bilirubin 0.60 (0.2-1.3) mg/dL AST 30 (14-36) U/L ALT 23 (0-35) U/L Alkaline Phosphatase 116 (38-126) U/L Serum Total Protein 7.1 (6.3-8.2) g/dL Albumin 3.7 (3.5-5.0) g/dL Amylase 35 (30-110) U/L Lipase 32 (23-300) U/L Urine Color YELLOW (YELLOW) Urine Appearance SLIGHTLY CLOUDY (CLEAR) Urine pH 6.0 (5-6) Ur Specific [place] 1.013 (1.005-1.025) Urine Protein NEGATIVE (Negative) Urine Ketones SMALL (NEGATIVE) Urine Blood SMALL (0-5) Kade/ul Urine Nitrite NEGATIVE (NEGATIVE) Urine Bilirubin NEGATIVE (NEGATIVE) Urine Urobilinogen NEGATIVE (0-1) mg/dL Ur Leukocyte Esterase SMALL (NEGATIVE) Urine WBC (Auto) 26-50 (0-5) /HPF Urine RBC (Auto) 6-10 (0-2) /HPF U Epithel Cells (Auto) RARE (FEW) /HPF Urine Bacteria (Auto) RARE (NEGATIVE) /HPF Urine Mucus (Auto) SLIGHT (NEGATIVE) /HPF Urine Yeast (Budding) Many (NEGATIVE) /HPF Urine Culture Reflexed YES (NO) Urine Glucose 150 (NEGATIVE) mg/dL Stool Occult Blood (NEGATIVE) C. difficile Screen (NEGATIVE) C.difficile [id number] (NEGATIVE) 11/14/20 Range/Units 12:42 WBC (4.0-10.5) K/mm3 RBC (4.1-5.4) M/mm3 Hgb (12.0-16.0) gm/dl Hct (35-47) % MCV (78-100) fl MCH (26-32) pg MCHC (32-36) g/dl RDW (11.5-14.0) % Plt Count (150-450) K/mm3 MPV (7.5-11.0) fl Gran % (36.0-66.0) % Eos # (Auto) (0-0.5) Absolute Lymphs (auto) (1.0-4.6) Absolute Monos (auto) (0.0-1.3) Lymphocytes % (24.0-44.0) % Monocytes % (0.0-12.0) % Eosinophils % (0.00-5.0) % Basophils % (0.0-0.4) % Absolute Granulocytes (1.4-6.9) Basophils # (0-0.4) Sodium (137-145) mmol/L Potassium (3.5-5.1) mmol/L Chloride (98-107) mmol/L Carbon Dioxide (22-30) mmol/L Anion Gap (5-15) MEQ/L BUN (7-17) mg/dL Creatinine (0.52-1.04) mg/dL Estimated GFR ML/MIN Glucose (74-106) mg/dL Lactic Acid 1.9 (0.4-2.0) Calcium (8.4-10.2) mg/dL Total Bilirubin (0.2-1.3) mg/dL AST (14-36) U/L ALT (0-35) U/L Alkaline Phosphatase (38-126) U/L Serum Total Protein (6.3-8.2) g/dL Albumin (3.5-5.0) g/dL Amylase (30-110) U/L Lipase (23-300) U/L Urine Color (YELLOW) Urine Appearance (CLEAR) Urine pH (5-6) Ur Specific [place] (1.005-1.025) Urine Protein (Negative) Urine Ketones (NEGATIVE) Urine Blood (0-5) Kade/ul Urine Nitrite (NEGATIVE) Urine Bilirubin (NEGATIVE) Urine Urobilinogen (0-1) mg/dL Ur Leukocyte Esterase (NEGATIVE) Urine WBC (Auto) (0-5) /HPF Urine RBC (Auto) (0-2) /HPF U Epithel Cells (Auto) (FEW) /HPF Urine Bacteria (Auto) (NEGATIVE) /HPF Urine Mucus (Auto) (NEGATIVE) /HPF Urine Yeast (Budding) (NEGATIVE) /HPF Urine Culture Reflexed (NO) Urine Glucose (NEGATIVE) mg/dL Stool Occult Blood (NEGATIVE) C. difficile Screen (NEGATIVE) C.difficile [id number] (NEGATIVE) - Progress Progress: improved Discussed with : Pari Will see patient in: hospital (observation) - Departure Departure Disposition: Observation Clinical Impression: Colitis, Type 2 diabetes mellitus Condition: Stable Critical Care Time: No Referrals: MILO ESPINO MD [Primary Care Provider] -
[2020-11-14 13:13] LABS: Absolute Neutrophil Ct (ANC) 4.18 (1.4-6.9); BASOPHIL % 0.5 % (0.0-0.4); Basophil (Absolute #) 0.03 (0-0.4); Eosinophil % 1.9 % (0.00-5.0); Eosinophil (Absolute #) 0.12 (0-0.5); Hematocrit 36.2 % (35-47); Hemoglobin 12.1 gm/dl (12.0-16.0); Lymphocyte (Absolute #) 1.09 (1.0-4.6); Lymphocytes % 17.5 % (24.0-44.0); Mean Cell Volume 87.9 fl (78-100); Mean Corpuscular Hemoglobin 29.4 pg (26-32); Mean Corpuscular Hgb Concent. 33.4 g/dl (32-36); Mean Platelet Volume 9.6 fl (7.5-11.0); Monocytes % 12.9 % (0.0-12.0); Neutrophil % 67.2 % (36.0-66.0); Platelet Count 382 K/mm3 (150-450); Red Blood Count 4.12 M/mm3 (4.1-5.4); Red Cell Distribution Width 14.6 % (11.5-14.0); White Blood Count 6.2 K/mm3 (4.0-10.5)
[2020-11-14 13:27] LABS: ALBUMIN 3.7 g/dL (3.5-5.0); ALKALINE PHOSPHATASE 116 U/L (38-126); AMYLASE 35 U/L (30-110); ANION GAP 15.4 MEQ/L (5-15); BLOOD UREA NITROGEN 4 mg/dL (7-17); CHLORIDE 99 mmol/L (98-107); Calcium 8.4 mg/dL (8.4-10.2); Carbon Dioxide 25 mmol/L (22-30); Creatinine 1 0.47 mg/dL (0.52-1.04); EST GLOMERULAR FILTRATION RATE > 60.0 ML/MIN; Glucose 222 mg/dL (74-106); LIPASE 32 U/L (23-300); Potassium 3.6 mmol/L (3.5-5.1); SGOT/AST 30 U/L (14-36); SGPT/ALT 23 U/L (0-35); SODIUM 135 mmol/L (137-145); Total Protein 7.1 g/dL (6.3-8.2)
[2020-11-14 13:55] LABS: Appearance SLIGHTLY CLOUDY (CLEAR); Bacteria RARE /HPF (NEGATIVE); Bilirubin NEGATIVE (NEGATIVE); Blood SMALL Ery/ul (0-5); Epithelial Cells RARE /HPF (FEW); Glucose 150 mg/dL (NEGATIVE); Ketones SMALL (NEGATIVE); Leukocyte Esterase SMALL (NEGATIVE); Mucus SLIGHT /HPF (NEGATIVE); Nitrite NEGATIVE (NEGATIVE); Protein,Urine Dip NEGATIVE (Negative); Specific Gravity 1.013 (1.005-1.025); Urobilinogen NEGATIVE mg/dL (0-1); WBC 26-50 /HPF (0-5)
[2020-11-14 13:57] LABS: Budding Yeast Many /HPF (NEGATIVE)
[2020-11-14 15:56] LABS: 027 TOX PROD PRESUMPTIVE NEGATIVE (NEGATIVE); TOXIGENIC C. DIFF ORG NEGATIVE (NEGATIVE)
[2020-11-14] MEDS: FLAGYL 500 MG IVPB 500 MG/100 ML BAG IV SCH ×2 (16:54→23:15)
[2020-11-14] MEDS: Zofran 4 MG/2 ML VIAL IV PRN ×2 (16:55→17:10)
[2020-11-14] MEDS: Sodium Chloride 0.9% 1000 ML 1,000 ML IV SCH ×2 (16:55→23:41)
[2020-11-14 17:42] LABS: INFLUENZA A NEGATIVE (NEGATIVE); INFLUENZA B NEGATIVE (NEGATIVE); RESPIRATORY SYNCTIAL VIRUS NEGATIVE (Negative)
--- NOTE | 2020-11-14 20:00 | XRAY ---
Indication: Diarrhea. Multiple contiguous axial images obtained through the abdomen and pelvis using 80 cc Isovue 370 contrast. Comparison: October 28, 2020. Lung bases again demonstrates right hemidiaphragm elevation. Minimal right lower lobe subsegmental atelectasis. No infiltrate or effusion. Heart is not enlarged. Noncontrasted stomach and bowel loops remain nonobstructed with normal appendix. There is now mild diffuse colonic bowel wall thickening favoring colitis. No free fluid/air. New scattered subcentimeter mesenteric nodes favoring adenitis. Remaining liver, gallbladder, pancreas, spleen, adrenal glands, kidneys, ureters, bladder, and uterus unremarkable. Stable minimal aortoiliac calcifications. No AAA or pathological retroperitoneal lymphadenopathy. Osseous structures intact again with mild degenerative changes throughout the spine. Impression: 1. New diffuse colitis and new scattered mesenteric adenitis. 2. Again incidental right hemidiaphragm elevation. Comment: Preliminary interpretation was made by [facility]. No critical discrepancy.
[2020-11-14] MEDS ORDERED: TYLENOL 325 MG PO PRN (20:13)
[2020-11-14] MEDS ORDERED: Tums EX 750 MG PO SCH (20:15)
[2020-11-14] MEDS ORDERED: Tums EX 750 MG ONE (20:20)
[2020-11-14] MEDS: Lantus Insulin SQ SCH (21:30)
[2020-11-15 05:55] LABS: Absolute Neutrophil Ct (ANC) 2.87 (1.4-6.9); BASOPHIL % 0.4 % (0.0-0.4); Basophil (Absolute #) 0.02 (0-0.4); Eosinophil % 3.3 % (0.00-5.0); Eosinophil (Absolute #) 0.15 (0-0.5); Hematocrit 32.3 % (35-47); Hemoglobin 10.6 gm/dl (12.0-16.0); Lymphocyte (Absolute #) 0.99 (1.0-4.6); Lymphocytes % 21.5 % (24.0-44.0); Mean Cell Volume 88.5 fl (78-100); Mean Corpuscular Hgb Concent. 32.8 g/dl (32-36); Mean Platelet Volume 9.2 fl (7.5-11.0); Monocyte (Absolute #) 0.58 (0.0-1.3); Monocytes % 12.6 % (0.0-12.0); Neutrophil % 62.2 % (36.0-66.0); Platelet Count 315 K/mm3 (150-450); Red Blood Count 3.65 M/mm3 (4.1-5.4); Red Cell Distribution Width 14.8 % (11.5-14.0); White Blood Count 4.6 K/mm3 (4.0-10.5)
[2020-11-15] MEDS ORDERED: FLAGYL 500 MG IVPB 500 MG/100 ML BAG IV ONE (06:07)
[2020-11-15 06:21] LABS: ANION GAP 11.9 MEQ/L (5-15); CHLORIDE 105 mmol/L (98-107); Calcium 7.5 mg/dL (8.4-10.2); Carbon Dioxide 24 mmol/L (22-30); Creatinine 1 0.41 mg/dL (0.52-1.04); EST GLOMERULAR FILTRATION RATE > 60.0 ML/MIN; Glucose 186 mg/dL (74-106); Potassium 3.4 mmol/L (3.5-5.1); SODIUM 137 mmol/L (137-145)
[2020-11-15 06:26] LABS: BLOOD UREA NITROGEN < 2 mg/dL (7-17)
[2020-11-15] MEDS: FLAGYL 500 MG IVPB 500 MG/100 ML BAG IV SCH ×4 (06:29→23:03)
[2020-11-15] MEDS: Sodium Chloride 0.9% 1000 ML 1,000 ML IV SCH ×3 (08:11→23:03)
[2020-11-15] MEDS: Lantus Insulin SQ SCH ×2 (10:03→21:45)
--- NOTE | 2020-11-15 11:21 | PCM.HP ---
History of Present Illness - Chief Complaint Chief Complaint: COLITIS History of Present Illness: is a 45 year old female pt of Dr. Duran with DM (on insulin), hypothyroidism, and obesity who was admitted through ER with colitis. She was admitted to the hospital for DKA around 10/28/20 and started having some mild diarrhea at that time. She has also been treated for labial abscess with levaquin; she stopped the levaquin 3d ago as she thought it may be exacerbating the diarrhea. At admission she complained of stools in excess of 10 times per day, with some pink blood on the tissue with wiping. No fever. Today she has had 2 episodes of diarrhea. In ER her C. diff test was negative; CT abd/pelvis showed diffuse colitis and scattered mesenteric adenitis. She was started on IV flagyl for the colitis. Hemoccult positive. WBC normal at 4.6. This morning she complains of being hungry. She states she's had some lower abdominal cramping with the diarrhea, and some lower back pain, otherwise no abd pain. Pt was scheduled for surgery tomorrow regarding the labial abscess (with Dr. Bradley). Currently it is rescheduled for a week from tomorrow. - Review of Systems Abdominal/Gastrointestinal: Abdominal Pain, Diarrhea, Hematochezia, Appetite Changes All Other Systems: Reviewed and Negative Medications & Allergies Home Medications: Home Medication List Insulin Aspart [Novolog] 50 unit SQ TIDWMEALS 10/27/20 [History Confirmed 11/14/20] Levofloxacin [Levaquin] 500 mg PO DAILY #7 tablet 10/30/20 [Rx Confirmed 11/14/20] Insulin Detemir [Levemir] 50 unit SQ BID 11/10/20 [History Confirmed 11/14/20] Allergies/Adverse Reactions: Allergies Allergy/AdvReac Type Severity Reaction Status Date / Time latex Allergy Intermediate Rash Verified 11/14/20 12:33 - Past Medical History Past Medical History: Yes Neurological History: No Pertinent History ENT History: No Pertinent History Cardiac History: No Pertinent History Respiratory History: Bronchitis Endocrine Medical History: Diabetes Type II, Hypothyroidism Musculoskelatal History: Arthritis GI Medical History: Hemorrhoids History: No Pertinent History Pyscho-Social History: No Pertinent History Reproductive Disorders: No Pertinent History - Female History Are you now?: No - Past Surgical History Past Surgical History: Yes Neuro Surgical History: No Pertinent History Cardiac History: No Pertinent History Respiratory Surgery: No Pertinent History GI Surgical History: No Pertinent History Genitourinary Surgical Hx: No Pertinent History Musculskeletal Surgical Hx: No Pertinent History Female Surgical History: Section Other Surgical History: I & D labial abcess - Social History Smoking Status: Former smoker How long have you smoked: 14 Exposure to second hand smoke: No Alcohol: None Drug Use: none - Physical Exam Vital Signs: Vital Signs - 24 hr Temp Pulse Resp BP Pulse Ox 11/15/20 07:37 97.6 F 103 H 18 155/90 96 11/15/20 04:00 99.3 F 100 H 16 120/63 95 11/14/20 23:43 99.0 F 104 H 16 117/59 95 11/14/20 20:38 99.7 F 107 H 12 142/82 96 11/14/20 18:18 89 18 125/75 98 11/14/20 17:36 88 18 129/77 97 11/14/20 16:41 98 11/14/20 16:10 86 18 122/70 97 11/14/20 13:48 100 H 18 135/78 99 11/14/20 12:36 98.4 F 120 H 18 166/95 98 General Appearance: no apparent distress, obese Neurologic Exam: alert, oriented x 3, cooperative, normal mood/affect Eye Exam: eyes nml inspection Ears, Nose, Throat Exam: pharynx normal, moist mucous membranes Neck Exam: normal inspection, non-tender, No lymphadenopathy Respiratory Exam: normal breath sounds, lungs clear, No respiratory distress, No crackles/rales, No rhonchi, No wheezing Cardiovascular Exam: regular rate/rhythm, normal heart sounds, No murmur Gastrointestinal/Abdomen Exam: soft, No normal bowel sounds (hypoactive but present), No tenderness (completely nttp), No distention, No mass, No guarding, No rebound Extremity Exam: normal inspection, No pedal edema, No swelling Skin Exam: normal color, warm, dry, No rash Results - Labs Lab/Micro Results: Lab Results-Last 24 Hours 11/14/20 11/14/20 11/14/20 Range/Units 12:42 12:48 13:17 WBC 6.2 (4.0-10.5) K/mm3 RBC 4.12 (4.1-5.4) M/mm3 Hgb 12.1 (12.0-16.0) gm/dl Hct 36.2 (35-47) % MCV 87.9 (78-100) fl MCH 29.4 (26-32) pg MCHC 33.4 (32-36) g/dl RDW 14.6 H (11.5-14.0) % Plt Count 382 (150-450) K/mm3 MPV 9.6 (7.5-11.0) fl Gran % 67.2 H (36.0-66.0) % Eos # (Auto) 0.12 (0-0.5) Absolute Lymphs (auto) 1.09 (1.0-4.6) Absolute Monos (auto) 0.80 (0.0-1.3) Lymphocytes % 17.5 L (24.0-44.0) % Monocytes % 12.9 H (0.0-12.0) % Eosinophils % 1.9 (0.00-5.0) % Basophils % 0.5 (0.0-0.4) % Absolute Granulocytes 4.18 (1.4-6.9) Basophils # 0.03 (0-0.4) Sodium (137-145) mmol/L Potassium (3.5-5.1) mmol/L Chloride (98-107) mmol/L Carbon Dioxide (22-30) mmol/L Anion Gap (5-15) MEQ/L BUN (7-17) mg/dL Creatinine (0.52-1.04) mg/dL Estimated GFR ML/MIN Glucose (74-106) mg/dL POC Glucometer (74 to 106) mg/dL Lactic Acid 1.9 (0.4-2.0) Calcium (8.4-10.2) mg/dL Total Bilirubin (0.2-1.3) mg/dL AST (14-36) U/L ALT (0-35) U/L Alkaline Phosphatase (38-126) U/L Serum Total Protein (6.3-8.2) g/dL Albumin (3.5-5.0) g/dL Amylase (30-110) U/L Lipase (23-300) U/L Urine Color YELLOW (YELLOW) Urine Appearance SLIGHTLY CLOUDY (CLEAR) Urine pH 6.0 (5-6) Ur Specific [place] 1.013 (1.005-1.025) Urine Protein NEGATIVE (Negative) Urine Ketones SMALL (NEGATIVE) Urine Blood SMALL (0-5) Kade/ul Urine Nitrite NEGATIVE (NEGATIVE) Urine Bilirubin NEGATIVE (NEGATIVE) Urine Urobilinogen NEGATIVE (0-1) mg/dL Ur Leukocyte Esterase SMALL (NEGATIVE) Urine WBC (Auto) 26-50 (0-5) /HPF Urine RBC (Auto) 6-10 (0-2) /HPF U Epithel Cells (Auto) RARE (FEW) /HPF Urine Bacteria (Auto) RARE (NEGATIVE) /HPF Urine Mucus (Auto) SLIGHT (NEGATIVE) /HPF Urine Yeast (Budding) Many (NEGATIVE) /HPF Urine Culture Reflexed YES (NO) Urine Glucose 150 (NEGATIVE) mg/dL Stool Occult Blood (NEGATIVE) C. difficile Screen (NEGATIVE) C.difficile 027-NAP1-B1 (NEGATIVE) Influenza Type A Ag (NEGATIVE) Influenza Type B Ag (NEGATIVE) RSV (PCR) (Negative) SARS-CoV-2 (PCR) (NEGATIVE) 11/14/20 11/14/20 11/14/20 Range/Units 13:17 13:48 13:48 WBC (4.0-10.5) K/mm3 RBC (4.1-5.4) M/mm3 Hgb (12.0-16.0) gm/dl Hct (35-47) % MCV (78-100) fl MCH (26-32) pg MCHC (32-36) g/dl RDW (11.5-14.0) % Plt Count (150-450) K/mm3 MPV (7.5-11.0) fl Gran % (36.0-66.0) % Eos # (Auto) (0-0.5) Absolute Lymphs (auto) (1.0-4.6) Absolute Monos (auto) (0.0-1.3) Lymphocytes % (24.0-44.0) % Monocytes % (0.0-12.0) % Eosinophils % (0.00-5.0) % Basophils % (0.0-0.4) % Absolute Granulocytes (1.4-6.9) Basophils # (0-0.4) Sodium 135 L (137-145) mmol/L Potassium 3.6 (3.5-5.1) mmol/L Chloride 99 (98-107) mmol/L Carbon Dioxide 25 (22-30) mmol/L Anion Gap 15.4 H (5-15) MEQ/L BUN 4 L (7-17) mg/dL Creatinine 0.47 L (0.52-1.04) mg/dL Estimated GFR > 60.0 ML/MIN Glucose 222 H (74-106) mg/dL POC Glucometer (74 to 106) mg/dL Lactic Acid (0.4-2.0) Calcium 8.4 (8.4-10.2) mg/dL Total Bilirubin 0.60 (0.2-1.3) mg/dL AST 30 (14-36) U/L ALT 23 (0-35) U/L Alkaline Phosphatase 116 (38-126) U/L Serum Total Protein 7.1 (6.3-8.2) g/dL Albumin 3.7 (3.5-5.0) g/dL Amylase 35 (30-110) U/L Lipase 32 (23-300) U/L Urine Color (YELLOW) Urine Appearance (CLEAR) Urine pH (5-6) Ur Specific [place] (1.005-1.025) Urine Protein (Negative) Urine Ketones (NEGATIVE) Urine Blood (0-5) Kade/ul Urine Nitrite (NEGATIVE) Urine Bilirubin (NEGATIVE) Urine Urobilinogen (0-1) mg/dL Ur Leukocyte Esterase (NEGATIVE) Urine WBC (Auto) (0-5) /HPF Urine RBC (Auto) (0-2) /HPF U Epithel Cells (Auto) (FEW) /HPF Urine Bacteria (Auto) (NEGATIVE) /HPF Urine Mucus (Auto) (NEGATIVE) /HPF Urine Yeast (Budding) (NEGATIVE) /HPF Urine Culture Reflexed (NO) Urine Glucose (NEGATIVE) mg/dL Stool Occult Blood POSITIVE A (NEGATIVE) C. difficile Screen NEGATIVE (NEGATIVE) C.difficile 027-NAP1-B1 PRESUMPTIVE NEGATIVE (NEGATIVE) Influenza Type A Ag (NEGATIVE) Influenza Type B Ag (NEGATIVE) RSV (PCR) (Negative) SARS-CoV-2 (PCR) (NEGATIVE) 11/14/20 11/14/20 11/14/20 Range/Units 15:14 16:51 21:03 WBC (4.0-10.5) K/mm3 RBC (4.1-5.4) M/mm3 Hgb (12.0-16.0) gm/dl Hct (35-47) % MCV (78-100) fl MCH (26-32) pg MCHC (32-36) g/dl RDW (11.5-14.0) % Plt Count (150-450) K/mm3 MPV (7.5-11.0) fl Gran % (36.0-66.0) % Eos # (Auto) (0-0.5) Absolute Lymphs (auto) (1.0-4.6) Absolute Monos (auto) (0.0-1.3) Lymphocytes % (24.0-44.0) % Monocytes % (0.0-12.0) % Eosinophils % (0.00-5.0) % Basophils % (0.0-0.4) % Absolute Granulocytes (1.4-6.9) Basophils # (0-0.4) Sodium (137-145) mmol/L Potassium (3.5-5.1) mmol/L Chloride (98-107) mmol/L Carbon Dioxide (22-30) mmol/L Anion Gap (5-15) MEQ/L BUN (7-17) mg/dL Creatinine (0.52-1.04) mg/dL Estimated GFR ML/MIN Glucose (74-106) mg/dL POC Glucometer 125 H (74 to 106) mg/dL Lactic Acid 1.1 (0.4-2.0) Calcium (8.4-10.2) mg/dL Total Bilirubin (0.2-1.3) mg/dL AST (14-36) U/L ALT (0-35) U/L Alkaline Phosphatase (38-126) U/L Serum Total Protein (6.3-8.2) g/dL Albumin (3.5-5.0) g/dL Amylase (30-110) U/L Lipase (23-300) U/L Urine Color (YELLOW) Urine Appearance (CLEAR) Urine pH (5-6) Ur Specific [place] (1.005-1.025) Urine Protein (Negative) Urine Ketones (NEGATIVE) Urine Blood (0-5) Kade/ul Urine Nitrite (NEGATIVE) Urine Bilirubin (NEGATIVE) Urine Urobilinogen (0-1) mg/dL Ur Leukocyte Esterase (NEGATIVE) Urine WBC (Auto) (0-5) /HPF Urine RBC (Auto) (0-2) /HPF U Epithel Cells (Auto) (FEW) /HPF Urine Bacteria (Auto) (NEGATIVE) /HPF Urine Mucus (Auto) (NEGATIVE) /HPF Urine Yeast (Budding) (NEGATIVE) /HPF Urine Culture Reflexed (NO) Urine Glucose (NEGATIVE) mg/dL Stool Occult Blood (NEGATIVE) C. difficile Screen (NEGATIVE) C.difficile 027-NAP1-B1 (NEGATIVE) Influenza Type A Ag NEGATIVE (NEGATIVE) Influenza Type B Ag NEGATIVE (NEGATIVE) RSV (PCR) NEGATIVE (Negative) SARS-CoV-2 (PCR) NEGATIVE (NEGATIVE) 11/15/20 11/15/20 11/15/20 Range/Units 05:25 05:25 06:54 WBC 4.6 (4.0-10.5) K/mm3 RBC 3.65 L (4.1-5.4) M/mm3 Hgb 10.6 L (12.0-16.0) gm/dl Hct 32.3 L (35-47) % MCV 88.5 (78-100) fl MCH 29.0 (26-32) pg MCHC 32.8 (32-36) g/dl RDW 14.8 H (11.5-14.0) % Plt Count 315 (150-450) K/mm3 MPV 9.2 (7.5-11.0) fl Gran % 62.2 (36.0-66.0) % Eos # (Auto) 0.15 (0-0.5) Absolute Lymphs (auto) 0.99 L (1.0-4.6) Absolute Monos (auto) 0.58 (0.0-1.3) Lymphocytes % 21.5 L (24.0-44.0) % Monocytes % 12.6 H (0.0-12.0) % Eosinophils % 3.3 (0.00-5.0) % Basophils % 0.4 (0.0-0.4) % Absolute Granulocytes 2.87 (1.4-6.9) Basophils # 0.02 (0-0.4) Sodium 137 (137-145) mmol/L Potassium 3.4 L (3.5-5.1) mmol/L Chloride 105 (98-107) mmol/L Carbon Dioxide 24 (22-30) mmol/L Anion Gap 11.9 (5-15) MEQ/L BUN < 2 L (7-17) mg/dL Creatinine 0.41 L (0.52-1.04) mg/dL Estimated GFR > 60.0 ML/MIN Glucose 186 H (74-106) mg/dL POC Glucometer 190 H (74 to 106) mg/dL Lactic Acid (0.4-2.0) Calcium 7.5 L (8.4-10.2) mg/dL Total Bilirubin (0.2-1.3) mg/dL AST (14-36) U/L ALT (0-35) U/L Alkaline Phosphatase (38-126) U/L Serum Total Protein (6.3-8.2) g/dL Albumin (3.5-5.0) g/dL Amylase (30-110) U/L Lipase (23-300) U/L Urine Color (YELLOW) Urine Appearance (CLEAR) Urine pH (5-6) Ur Specific [place] (1.005-1.025) Urine Protein (Negative) Urine Ketones (NEGATIVE) Urine Blood (0-5) Kade/ul Urine Nitrite (NEGATIVE) Urine Bilirubin (NEGATIVE) Urine Urobilinogen (0-1) mg/dL Ur Leukocyte Esterase (NEGATIVE) Urine WBC (Auto) (0-5) /HPF Urine RBC (Auto) (0-2) /HPF U Epithel Cells (Auto) (FEW) /HPF Urine Bacteria (Auto) (NEGATIVE) /HPF Urine Mucus (Auto) (NEGATIVE) /HPF Urine Yeast (Budding) (NEGATIVE) /HPF Urine Culture Reflexed (NO) Urine Glucose (NEGATIVE) mg/dL Stool Occult Blood (NEGATIVE) C. difficile Screen (NEGATIVE) C.difficile 027-NAP1-B1 (NEGATIVE) Influenza Type A Ag (NEGATIVE) Influenza Type B Ag (NEGATIVE) RSV (PCR) (Negative) SARS-CoV-2 (PCR) (NEGATIVE) Microbiology 11/14/20 12:48 Urine Culture - Preliminary Clean Catch Midstream NO GROWTH TO DATE Accuchecks Date 11/15/20 Date 11/14/20 Time 07:30 - Radiology Impressions Radiology Exams & Impressions: Radiology Procedures Category Date Time Status ABDOMEN AND PELVIS W CONTRAST [CT] Stat Exams 11/14/20 12:44 Completed Assessment/Plan (1) Colitis Current Visit: Yes Status: Acute Assessment & Plan: Could be viral; C. diff negative. However started flagyl in the event there is a bacterial component that is not C. diff. Will go ahead with GI pathogen panel. Pt wants to eat, but advised her to stay with [facility] at least until suppertime today, then may eat 1 piece of plain toast over 1 hour. Any increase in diarrhea, needs to return to [facility]. Code(s): K52.9 - NONINFECTIVE GASTROENTERITIS AND COLITIS, UNSPECIFIED (2) Type 2 diabetes mellitus Current Visit: Yes Status: Acute Qualifiers: Diabetes mellitus rat exterminator insulin use: with fci use Diabetes mellitus complication status: without complication Qualified Code(s): E11.9 - Type 2 diabetes mellitus without complications; Z79.4 - detention (current) use of insulin Assessment & Plan: decreased her insulin by over half with her decreased po intake. BS 125, 190 here. (3) Leukocytes in urine Current Visit: Yes Status: Acute Assessment & Plan: In an effort to reduce her abx exposure, will hold off on any UTI tx until culture results are in. Code(s): R82.998 - OTHER ABNORMAL FINDINGS IN URINE (4) Hypothyroid Current Visit: Yes Status: Chronic Qualifiers: Hypothyroidism type: unspecified Qualified Code(s): E03.9 - Hypothyroidism, unspecified Code(s): E03.9 - HYPOTHYROIDISM, UNSPECIFIED (5) Obesities, morbid Current Visit: Yes Status: Chronic Code(s): E66.01 - MORBID (SEVERE) OBESITY DUE TO EXCESS CALORIES (6) Labial abscess Current Visit: No Status: Chronic Onset Date: ~09/17/18 Assessment & Plan: Will notify Dr. Bradley tomorrow that pt is here. Code(s): N76.4 - ABSCESS OF VULVA
[2020-11-15] MEDS: HUMALOG SQ PRN ×2 (12:37→18:14)
[2020-11-15] MEDS: Tums EX 750 MG PO PRN (18:13)
[2020-11-15] MEDS: Zofran 4 MG/2 ML VIAL IV PRN (19:14)
[2020-11-16] MEDS: Zofran 4 MG/2 ML VIAL IV PRN ×6 (01:24→23:50)
[2020-11-16] MEDS: Sodium Chloride 0.9% 1000 ML 1,000 ML IV SCH ×6 (06:11→23:50)
[2020-11-16] MEDS: FLAGYL 500 MG IVPB 500 MG/100 ML BAG IV SCH ×4 (06:47→23:50)
--- NOTE | 2020-11-16 08:20 | PCM.NOTE ---
Date and Time: 11/16/20813 Subjective Assessment: patient c/o nausea, didn't have it prior to admission. she feels the flagyl makes her feel nauseated when she gets a dose. Objective Exam General Appearance: no apparent distress, alert Skin Exam: normal color, warm, dry Respiratory Exam: normal breath sounds, lungs clear, No respiratory distress Cardiovascular Exam: regular rate/rhythm, normal heart sounds Gastrointestinal/Abdomen Exam: soft, No tenderness, No mass Extremity Exam: normal inspection, normal range of motion OBJECTIVE DATA Vital Signs: Vital Signs - 24 hr Temp Pulse Resp BP Pulse Ox 11/16/20 04:05 98.3 F 101 H 16 172/93 96 11/15/20 23:34 98.5 F 101 H 16 138/74 95 11/15/20 20:00 99.3 F 76 18 170/83 96 11/15/20 16:00 98.8 F 103 H 18 142/80 96 11/15/20 12:00 98.8 F 104 H 18 141/80 96 Pain Assessment - Last Documented Pain Intensity 0 Intake and Output: Intake & Output 11/13/20 11/14/20 11/15/20 11/16/20 11:59 11:59 11:59 11:59 Intake Total 1725 4927 Output Total 500 1600 Balance 1225 3327 Weight 125.2 kg Lab Results: Lab Results-Last 24 Hours 11/15/20 11/15/20 11/15/20 Range/Units 11:25 16:01 21:03 POC Glucometer 270 H 294 H 232 H (74 to 106) mg/dL 11/16/20 Range/Units 06:45 POC Glucometer 282 H (74 to 106) mg/dL Radiology Exams: Radiology Procedures Category Date Time Status ABDOMEN AND PELVIS W CONTRAST [CT] Stat Exams 11/14/20 12:44 Completed Assessment/Plan (1) Colitis Current Visit: Yes Status: Acute Assessment & Plan: on flagyl, c diff was negative. recommend GI panel to further evaluate for possible viral causes and cultures are less helpful due to time delay of results. will advance to bland diet Code(s): K52.9 - NONINFECTIVE GASTROENTERITIS AND COLITIS, UNSPECIFIED (2) Type 2 diabetes mellitus Current Visit: Yes Status: Acute Qualifiers: Diabetes mellitus roasterman insulin use: with roasterman use Diabetes mellitus complication status: without complication Qualified Code(s): E11.9 - Type 2 diabetes mellitus without complications; Z79.4 - residential (current) use of insulin (3) Labial abscess Current Visit: No Status: Chronic Onset Date: ~09/17/18 Code(s): N76.4 - ABSCESS OF VULVA
[2020-11-16] MEDS: HUMALOG SQ PRN ×4 (10:17→21:42)
[2020-11-16] MEDS: Lantus Insulin SQ SCH ×2 (10:18→21:42)
[2020-11-16] MEDS: Tums EX 750 MG PO PRN (10:19)
[2020-11-16 15:32] LABS: Adenovirus F 40/41 NEGATIVE (NEGATIVE); Astrovirus NEGATIVE (NEGATIVE); C. Difficile Organism NEGATIVE (NEGATIVE); Campylobacter NEGATIVE (NEGATIVE); Cryptosporidium NEGATIVE (NEGATIVE); Cyclospora cayentanensis NEGATIVE (NEGATIVE); Entamoeaba histolytica NEGATIVE (NEGATIVE); Enteroaggregative E.coli NEGATIVE (NEGATIVE); Enteropathogenic E.coli NEGATIVE (NEGATIVE); Enterotoxigenic E.coli NEGATIVE (NEGATIVE); Giardia lamblia NEGATIVE (NEGATIVE); Norovirus GI/GII NEGATIVE (NEGATIVE); Plesiomonas shigelloides NEGATIVE (NEGATIVE); Rotavirus A NEGATIVE (NEGATIVE); Salmonella NEGATIVE (NEGATIVE); Sapovirus NEGATIVE (NEGATIVE); Shiga-like toxin prod.E.coli NEGATIVE (NEGATIVE); Vibrio NEGATIVE (NEGATIVE); Vibrio cholerae NEGATIVE (NEGATIVE); Yersinia enterocolitica NEGATIVE (NEGATIVE)
--- NOTE | 2020-11-16 15:44 | CONS ---
DATE OF CONSULT: 11/16/2020 HISTORY OF PRESENT ILLNESS: A 45 year-old female patient of Dr. Duran who has some diabetes, chronic draining cyst, ruptured cyst site right groin area. Apparently she had been on some Levaquin in the past. She is scheduled for wide excision of this area and schedule it next week. She is in now for a different problem. She had some generalized colitis. She had been in the hospital for diabetic ketoacidosis around 10/28/2020. Reportedly her Clostridium difficile was negative. She was having some loose stools. CT showed some diffuse colitis, symptomatic adenitis. Her white count was apparently 6.2 initially. Her temperature is 99F. Vital signs stable. She felt like her little infection down in the groin area was doing better at this time. PAST MEDICAL HISTORY: Hypothyroidism, arthritis, diabetes mellitus type II, obesity. PAST SURGICAL HISTORY: section in the past. She had I&D of this groin area infection in the past. MEDICATIONS: She was on Levaquin in the past. It looks like she was started on Flagyl here. Otherwise she had been on some NovoLog, Levemir. ALLERGIES: NKDA. LATEX (RASH). FAMILY HISTORY: Negative in regards to this problem. SOCIAL HISTORY: Former smoker. No alcohol abuse. REVIEW OF SYSTEMS: Fourteen systems reviewed pertinent for the diabetes, arthritis, hypothyroidism and obesity. Otherwise no chest pain or palpitations. She had previous episode of diabetes ketoacidosis. She is a former smoker. Other systems negative or noncontributory as above and per preadmission questionnaire. PHYSICAL EXAMINATION: GENERAL: No acute distress. HEENT: Sclerae nonicteric. NECK: No JVD. CHEST: Equal excursion, nonlabored breathing. CVS: Regular rhythm and pulse. ABDOMEN: Obese, soft. No peritoneal signs. Groin area indurated area where she had some drainage from a ruptured cyst site. It seems to be may be a little bit smaller than it was before. EXTREMITIES: No cyanosis. NEURO: Alert, moving extremities symmetrically. IMPRESSION: A 45 year-old with past history of groin infection, ruptured cyst site now admitted with a different problem, some generalized colitis. I agree to continue antibiotic and getting gram-negative coverage as needed. No need for any emergent surgery on this groin area, chronic drainage ruptured cyst site. It is smaller than it was previously. At this time the patient prefers to get over her colitis at this time and then she has some time reserved next week to excise this ruptured cyst site and may need open packing. She prefers to get over her colitis first. At this time no emergent surgical intervention, continue IV antibiotics, medical management. She will be released if she is feeling better, can keep her reserved time for her excision of ruptured cyst site next week or if she prefers to wait longer as this site is smaller, no emergent surgery necessary. At this time regarding her colitis, continue medical management. No surgery required at this time. Medical management regarding as her colitis may be exacerbated by recent antibiotic use. If she fails to improve can consider colonoscopy down the road but at this time she just needs medical management and antibiotics. We will follow PRN while she is here in the hospital at this time as she does not appear to need emergent surgery. Should things change let us know otherwise will either see her back in the office next week if she is release or if she decides to proceed with excisional biopsy. Down the road she may need consideration of endoscopy by Dr. Duran or other surgeon. No emergent surgery necessary at this moment. I will see her next week.
[2020-11-17] MEDS: FLAGYL 500 MG IVPB 500 MG/100 ML BAG IV SCH (05:22)
[2020-11-17] MEDS: Zofran 4 MG/2 ML VIAL IV PRN ×4 (05:22→20:11)
[2020-11-17 05:28] LABS: Hemoglobin 10.4 gm/dl (12.0-16.0); Mean Cell Volume 88.9 fl (78-100); Mean Corpuscular Hemoglobin 28.9 pg (26-32); Mean Corpuscular Hgb Concent. 32.5 g/dl (32-36); Mean Platelet Volume 9.3 fl (7.5-11.0); Platelet Count 414 K/mm3 (150-450); Red Cell Distribution Width 14.9 % (11.5-14.0); White Blood Count 5.2 K/mm3 (4.0-10.5)
[2020-11-17 05:30] LABS: ALKALINE PHOSPHATASE 88 U/L (38-126); ANION GAP 19.1 MEQ/L (5-15); CHLORIDE 108 mmol/L (98-107); Calcium 7.8 mg/dL (8.4-10.2); Creatinine 1 0.42 mg/dL (0.52-1.04); EST GLOMERULAR FILTRATION RATE > 60.0 ML/MIN; Glucose 260 mg/dL (74-106); LIPASE 36 U/L (23-300); Potassium 3.9 mmol/L (3.5-5.1); SGOT/AST 16 U/L (14-36); SGPT/ALT 13 U/L (0-35); SODIUM 136 mmol/L (137-145); Total Protein 6.1 g/dL (6.3-8.2)
[2020-11-17 05:36] LABS: BLOOD UREA NITROGEN < 2 mg/dL (7-17)
[2020-11-17 05:37] LABS: Carbon Dioxide 14 mmol/L (22-30)
[2020-11-17 05:51] LABS: ATYPICAL LYMPHS 1 %; Eosinophil 2 % (0.00-3.0); Lymphocytes 31 % (24-44); Monocyte 3 % (0.0-12.0); Neutrophils 63 % (36.0-66.0); Nucleated Red Blood Cell 1 %; Total Cells Counted 100
[2020-11-17 05:52] LABS: Platelet Estimate NORMAL (NORMAL); Poikilocytosis 1+; Polychromasia 1+
[2020-11-17] MEDS: HUMALOG SQ PRN ×4 (08:22→22:11)
[2020-11-17] MEDS: Lantus Insulin SQ SCH ×2 (09:40→22:11)
[2020-11-17] MEDS: Sodium Chloride 0.9% 1000 ML 1,000 ML IV SCH ×3 (09:40→20:45)
[2020-11-17] MEDS ORDERED: IMODIUM 2 MG PO PRN (09:54)
--- NOTE | 2020-11-17 09:58 | PCM.NOTE ---
Date and Time: 11/17/20 0956 Subjective Assessment: patient reports decrease in diarrhea but still having some loose stools, nausea is her biggest complaint. seems to be worsening during her stay Objective Exam General Appearance: no apparent distress Neurologic Exam: alert, oriented x 3 Respiratory Exam: normal breath sounds, lungs clear, No respiratory distress Cardiovascular Exam: regular rate/rhythm, normal heart sounds Gastrointestinal/Abdomen Exam: soft, No tenderness, No mass OBJECTIVE DATA Vital Signs: Vital Signs - 24 hr Temp Pulse Resp BP Pulse Ox 11/17/20 08:00 98.1 F 103 H 16 135/83 99 11/17/20 04:00 98.3 F 105 H 14 144/85 97 11/16/20 23:51 98.9 F 108 H 14 135/78 97 11/16/20 20:00 98.8 F 107 H 18 172/83 99 11/16/20 16:00 97.4 F 104 H 18 140/71 98 11/16/20 11:28 97.9 F 106 H 18 131/66 97 Pain Assessment - Last Documented Pain Intensity 0 Intake and Output: Intake & Output 11/14/20 11/15/20 11/16/20 11/17/20 11:59 11:59 11:59 11:59 Intake Total 1725 5167 2139 Output Total 500 1600 Balance 1225 3567 2139 Weight 125.2 kg 126 kg 126 kg Lab Results: Lab Results-Last 24 Hours 11/16/20 11/16/20 11/16/20 Range/Units 11:17 16:02 21:02 WBC (4.0-10.5) K/mm3 RBC (4.1-5.4) M/mm3 Hgb (12.0-16.0) gm/dl Hct (35-47) % MCV (78-100) fl MCH (26-32) pg MCHC (32-36) g/dl RDW (11.5-14.0) % Plt Count (150-450) K/mm3 MPV (7.5-11.0) fl Segmented Neutrophils (36.0-66.0) % Lymphocytes (Manual) (24-44) % Monocytes (Manual) (0.0-12.0) % Eosinophils (Manual) (0.00-3.0) % Nucleated RBCs % Atypical Lymphocytes % Platelet Estimate (NORMAL) RBC Morphology Polychromasia Poikilocytosis Sodium (137-145) mmol/L Potassium (3.5-5.1) mmol/L Chloride (98-107) mmol/L Carbon Dioxide (22-30) mmol/L Anion Gap (5-15) MEQ/L BUN (7-17) mg/dL Creatinine (0.52-1.04) mg/dL Estimated GFR ML/MIN Glucose (74-106) mg/dL POC Glucometer 253 H 249 H 265 H (74 to 106) mg/dL Calcium (8.4-10.2) mg/dL Total Bilirubin (0.2-1.3) mg/dL AST (14-36) U/L ALT (0-35) U/L Alkaline Phosphatase (38-126) U/L Serum Total Protein (6.3-8.2) g/dL Albumin (3.5-5.0) g/dL Lipase (23-300) U/L Stl C. cayetanensis PCR (NEGATIVE) Stl Adenov F 40/41 PCR (NEGATIVE) Stool Astrovirus (PCR) (NEGATIVE) Stool Cryptosporidium PCR (NEGATIVE) Stool EPEC (PCR) (NEGATIVE) Stool EAEC (PCR) (NEGATIVE) Stl E. histolytica PCR (NEGATIVE) Stl P. shigelloides PCR (NEGATIVE) Stool Sapovirus (PCR) (NEGATIVE) St Y.enterocolitica PCR (NEGATIVE) Stool Vibrio (PCR) (NEGATIVE) Stl Vibrio cholerae PCR (NEGATIVE) Stl Norovirus GI/GII PCR (NEGATIVE) Campylobacter (PCR) (NEGATIVE) C. difficile (PCR) (NEGATIVE) Enterotoxigenic E. coli (NEGATIVE) E.coli Shiga Toxins (NEGATIVE) Giardia lamblia (NEGATIVE) Rotavirus A (PCR) (NEGATIVE) Salmonella (PCR) (NEGATIVE) Shigella (PCR) (NEGATIVE) 11/16/20 11/16/20 11/17/20 Range/Units 23:54 Unknown 04:23 WBC 5.2 (4.0-10.5) K/mm3 RBC 3.60 L (4.1-5.4) M/mm3 Hgb 10.4 L (12.0-16.0) gm/dl Hct 32.0 L (35-47) % MCV 88.9 (78-100) fl MCH 28.9 (26-32) pg MCHC 32.5 (32-36) g/dl RDW 14.9 H (11.5-14.0) % Plt Count 414 (150-450) K/mm3 MPV 9.3 (7.5-11.0) fl Segmented Neutrophils 63 (36.0-66.0) % Lymphocytes (Manual) 31 (24-44) % Monocytes (Manual) 3 (0.0-12.0) % Eosinophils (Manual) 2 (0.00-3.0) % Nucleated RBCs 1 % Atypical Lymphocytes 1 % Platelet Estimate NORMAL (NORMAL) RBC Morphology ABNORMAL Polychromasia 1+ Poikilocytosis 1+ Sodium (137-145) mmol/L Potassium (3.5-5.1) mmol/L Chloride (98-107) mmol/L Carbon Dioxide (22-30) mmol/L Anion Gap (5-15) MEQ/L BUN (7-17) mg/dL Creatinine (0.52-1.04) mg/dL Estimated GFR ML/MIN Glucose (74-106) mg/dL POC Glucometer 261 H (74 to 106) mg/dL Calcium (8.4-10.2) mg/dL Total Bilirubin (0.2-1.3) mg/dL AST (14-36) U/L ALT (0-35) U/L Alkaline Phosphatase (38-126) U/L Serum Total Protein (6.3-8.2) g/dL Albumin (3.5-5.0) g/dL Lipase (23-300) U/L Stl C. cayetanensis PCR NEGATIVE (NEGATIVE) Stl Adenov F 40/41 PCR NEGATIVE (NEGATIVE) Stool Astrovirus (PCR) NEGATIVE (NEGATIVE) Stool Cryptosporidium PCR NEGATIVE (NEGATIVE) Stool EPEC (PCR) NEGATIVE (NEGATIVE) Stool EAEC (PCR) NEGATIVE (NEGATIVE) Stl E. histolytica PCR NEGATIVE (NEGATIVE) Stl P. shigelloides PCR NEGATIVE (NEGATIVE) Stool Sapovirus (PCR) NEGATIVE (NEGATIVE) St Y.enterocolitica PCR NEGATIVE (NEGATIVE) Stool Vibrio (PCR) NEGATIVE (NEGATIVE) Stl Vibrio cholerae PCR NEGATIVE (NEGATIVE) Stl Norovirus GI/GII PCR NEGATIVE (NEGATIVE) Campylobacter (PCR) NEGATIVE (NEGATIVE) C. difficile (PCR) NEGATIVE (NEGATIVE) Enterotoxigenic E. coli NEGATIVE (NEGATIVE) E.coli Shiga Toxins NEGATIVE (NEGATIVE) Giardia lamblia NEGATIVE (NEGATIVE) Rotavirus A (PCR) NEGATIVE (NEGATIVE) Salmonella (PCR) NEGATIVE (NEGATIVE) Shigella (PCR) NEGATIVE (NEGATIVE) 11/17/20 11/17/20 Range/Units 04:23 08:15 WBC (4.0-10.5) K/mm3 RBC (4.1-5.4) M/mm3 Hgb (12.0-16.0) gm/dl Hct (35-47) % MCV (78-100) fl MCH (26-32) pg MCHC (32-36) g/dl RDW (11.5-14.0) % Plt Count (150-450) K/mm3 MPV (7.5-11.0) fl Segmented Neutrophils (36.0-66.0) % Lymphocytes (Manual) (24-44) % Monocytes (Manual) (0.0-12.0) % Eosinophils (Manual) (0.00-3.0) % Nucleated RBCs % Atypical Lymphocytes % Platelet Estimate (NORMAL) RBC Morphology Polychromasia Poikilocytosis Sodium 136 L (137-145) mmol/L Potassium 3.9 (3.5-5.1) mmol/L Chloride 108 H (98-107) mmol/L Carbon Dioxide 14 L* (22-30) mmol/L Anion Gap 19.1 H (5-15) MEQ/L BUN < 2 L (7-17) mg/dL Creatinine 0.42 L (0.52-1.04) mg/dL Estimated GFR > 60.0 ML/MIN Glucose 260 H (74-106) mg/dL POC Glucometer 245 H (74 to 106) mg/dL Calcium 7.8 L (8.4-10.2) mg/dL Total Bilirubin 0.30 (0.2-1.3) mg/dL AST 16 (14-36) U/L ALT 13 (0-35) U/L Alkaline Phosphatase 88 (38-126) U/L Serum Total Protein 6.1 L (6.3-8.2) g/dL Albumin 3.0 L (3.5-5.0) g/dL Lipase 36 (23-300) U/L Stl C. cayetanensis PCR (NEGATIVE) Stl Adenov F 40/41 PCR (NEGATIVE) Stool Astrovirus (PCR) (NEGATIVE) Stool Cryptosporidium PCR (NEGATIVE) Stool EPEC (PCR) (NEGATIVE) Stool EAEC (PCR) (NEGATIVE) Stl E. histolytica PCR (NEGATIVE) Stl P. shigelloides PCR (NEGATIVE) Stool Sapovirus (PCR) (NEGATIVE) St Y.enterocolitica PCR (NEGATIVE) Stool Vibrio (PCR) (NEGATIVE) Stl Vibrio cholerae PCR (NEGATIVE) Stl Norovirus GI/GII PCR (NEGATIVE) Campylobacter (PCR) (NEGATIVE) C. difficile (PCR) (NEGATIVE) Enterotoxigenic E. coli (NEGATIVE) E.coli Shiga Toxins (NEGATIVE) Giardia lamblia (NEGATIVE) Rotavirus A (PCR) (NEGATIVE) Salmonella (PCR) (NEGATIVE) Shigella (PCR) (NEGATIVE) Assessment/Plan (1) Colitis Current Visit: Yes Status: Acute Assessment & Plan: d/c flagyl secondary to nausea, start on zosyn for gram neg and anaeorobic coverage. 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
[2020-11-17] MEDS: Tums EX 750 MG PO PRN ×3 (10:55→18:58)
[2020-11-17] MEDS: Zosyn 3.375 GM Vial 3.375 GM in Sodium Chloride 100ML MINI-BAG PLUS 100 ML IV SCH ×3 (11:42→23:11)
[2020-11-17] MEDS: Protonix 20MG Tablet PO SCH (15:28)
[2020-11-17] MEDS ORDERED: TRANDATE 20 MG/4 ML SYRINGE IV ONE (20:27)
[2020-11-17] MEDS ORDERED: PHENERGAN 25 MG PO PRN (20:28)
[2020-11-17] MEDS ORDERED: Reglan 10 MG PO PRN (20:33)
[2020-11-18] MEDS: Zosyn 3.375 GM Vial 3.375 GM in Sodium Chloride 100ML MINI-BAG PLUS 100 ML IV SCH ×3 (05:25→17:54)
[2020-11-18 05:29] LABS: Hematocrit 33.1 % (35-47); Hemoglobin 10.9 gm/dl (12.0-16.0); Mean Cell Volume 87.8 fl (78-100); Mean Corpuscular Hemoglobin 28.9 pg (26-32); Mean Corpuscular Hgb Concent. 32.9 g/dl (32-36); Platelet Count 434 K/mm3 (150-450); Red Blood Count 3.77 M/mm3 (4.1-5.4); Red Cell Distribution Width 15.2 % (11.5-14.0); White Blood Count 6.4 K/mm3 (4.0-10.5)
[2020-11-18 05:54] LABS: ANION GAP 21.4 MEQ/L (5-15); CHLORIDE 109 mmol/L (98-107); Calcium 8.1 mg/dL (8.4-10.2); Creatinine 1 0.51 mg/dL (0.52-1.04); EST GLOMERULAR FILTRATION RATE > 60.0 ML/MIN; Glucose 298 mg/dL (74-106); Potassium 3.9 mmol/L (3.5-5.1); SODIUM 138 mmol/L (137-145)
[2020-11-18 05:58] LABS: BLOOD UREA NITROGEN < 2 mg/dL (7-17)
[2020-11-18 05:59] LABS: Carbon Dioxide 11 mmol/L (22-30)
[2020-11-18 07:54] LABS: BAND 6 % (0.0-2.0); Eosinophil 2 % (0.00-3.0); Lymphocytes 14 % (24-44); Monocyte 7 % (0.0-12.0); Neutrophils 71 % (36.0-66.0); Nucleated Red Blood Cell 1 %; Total Cells Counted 100
[2020-11-18 07:55] LABS: Platelet Estimate NORMAL (NORMAL); Polychromasia 1+
[2020-11-18] MEDS ORDERED: Lantus Insulin SQ SCH ×2 (08:41→10:00)
--- NOTE | 2020-11-18 08:47 | PCM.NOTE ---
Date and Time: 11/18/20 0842 Subjective Assessment: nausea is improved with po promethazine, still having diarrhea and feels poorly. Objective Exam General Appearance: no apparent distress, obese Neurologic Exam: alert, oriented x 3 Respiratory Exam: normal breath sounds, lungs clear, No respiratory distress Cardiovascular Exam: regular rate/rhythm, normal heart sounds Gastrointestinal/Abdomen Exam: soft, No tenderness, No mass Extremity Exam: normal inspection, normal range of motion OBJECTIVE DATA Vital Signs: Vital Signs - 24 hr Temp Pulse Resp BP Pulse Ox 11/18/20 07:20 98.4 F 103 H 18 144/70 97 11/18/20 04:00 98.3 F 103 H 20 139/70 96 11/17/20 23:34 97.8 F 102 H 20 138/79 99 11/17/20 22:00 98 H 132/74 11/17/20 19:31 98.2 F 110 H 20 175/91 99 11/17/20 16:00 99.2 F 109 H 16 162/78 99 11/17/20 11:42 98.1 F 104 H 18 131/85 98 Pain Assessment - Last Documented Pain Intensity 0 Intake and Output: Intake & Output 11/15/20 11/16/20 11/17/20 11/18/20 11:59 11:59 11:59 11:59 Intake Total 1725 5167 2139 3106 Output Total 500 1600 200 Balance 1225 3567 2139 2906 Weight 125.2 kg 126 kg 126 kg 124.5 kg Lab Results: Lab Results-Last 24 Hours 11/17/20 11/17/20 11/17/20 Range/Units 11:36 16:54 16:54 WBC (4.0-10.5) K/mm3 RBC (4.1-5.4) M/mm3 Hgb (12.0-16.0) gm/dl Hct (35-47) % MCV (78-100) fl MCH (26-32) pg MCHC (32-36) g/dl RDW (11.5-14.0) % Plt Count (150-450) K/mm3 MPV (7.5-11.0) fl Segmented Neutrophils (36.0-66.0) % Band Neutrophils (0.0-2.0) % Lymphocytes (Manual) (24-44) % Monocytes (Manual) (0.0-12.0) % Eosinophils (Manual) (0.00-3.0) % Nucleated RBCs % Platelet Estimate (NORMAL) RBC Morphology Polychromasia Sodium (137-145) mmol/L Potassium (3.5-5.1) mmol/L Chloride (98-107) mmol/L Carbon Dioxide (22-30) mmol/L Anion Gap (5-15) MEQ/L BUN (7-17) mg/dL Creatinine (0.52-1.04) mg/dL Estimated GFR ML/MIN Glucose (74-106) mg/dL POC Glucometer 251 H 263 H 263 H (74 to 106) mg/dL Calcium (8.4-10.2) mg/dL 11/17/20 11/18/20 11/18/20 Range/Units 20:51 04:27 04:27 WBC 6.4 (4.0-10.5) K/mm3 RBC 3.77 L (4.1-5.4) M/mm3 Hgb 10.9 L (12.0-16.0) gm/dl Hct 33.1 L (35-47) % MCV 87.8 (78-100) fl MCH 28.9 (26-32) pg MCHC 32.9 (32-36) g/dl RDW 15.2 H (11.5-14.0) % Plt Count 434 (150-450) K/mm3 MPV 9.0 (7.5-11.0) fl Segmented Neutrophils 71 H (36.0-66.0) % Band Neutrophils 6 H (0.0-2.0) % Lymphocytes (Manual) 14 L (24-44) % Monocytes (Manual) 7 (0.0-12.0) % Eosinophils (Manual) 2 (0.00-3.0) % Nucleated RBCs 1 % Platelet Estimate NORMAL (NORMAL) RBC Morphology ABNORMAL Polychromasia 1+ Sodium 138 (137-145) mmol/L Potassium 3.9 (3.5-5.1) mmol/L Chloride 109 H (98-107) mmol/L Carbon Dioxide 11 L* (22-30) mmol/L Anion Gap 21.4 H (5-15) MEQ/L BUN < 2 L (7-17) mg/dL Creatinine 0.51 L (0.52-1.04) mg/dL Estimated GFR > 60.0 ML/MIN Glucose 298 H (74-106) mg/dL POC Glucometer 253 H (74 to 106) mg/dL Calcium 8.1 L (8.4-10.2) mg/dL 11/18/20 Range/Units 06:46 WBC (4.0-10.5) K/mm3 RBC (4.1-5.4) M/mm3 Hgb (12.0-16.0) gm/dl Hct (35-47) % MCV (78-100) fl MCH (26-32) pg MCHC (32-36) g/dl RDW (11.5-14.0) % Plt Count (150-450) K/mm3 MPV (7.5-11.0) fl Segmented Neutrophils (36.0-66.0) % Band Neutrophils (0.0-2.0) % Lymphocytes (Manual) (24-44) % Monocytes (Manual) (0.0-12.0) % Eosinophils (Manual) (0.00-3.0) % Nucleated RBCs % Platelet Estimate (NORMAL) RBC Morphology Polychromasia Sodium (137-145) mmol/L Potassium (3.5-5.1) mmol/L Chloride (98-107) mmol/L Carbon Dioxide (22-30) mmol/L Anion Gap (5-15) MEQ/L BUN (7-17) mg/dL Creatinine (0.52-1.04) mg/dL Estimated GFR ML/MIN Glucose (74-106) mg/dL POC Glucometer 287 H (74 to 106) mg/dL Calcium (8.4-10.2) mg/dL Multi-Disciplinary Progress Notes: Multi-Disciplinary Progress Notes 11/17/20 11:28 Case Management Note by Kaela Matute NO CHANGE IN DC PLANS AT THIS TIME Initialized on 11/17/20 11:28 - END OF NOTE Assessment/Plan (1) Colitis Current Visit: Yes Status: Acute Assessment & Plan: changed from flagyl to zosyn secondary to nausea, will check esr. patient has hx of dm presumed type 2 but recently had episode of dka. she also had a history of recurrent pelvic/labial abscess. ?IBD, will likely require GI consult after improved Code(s): K52.9 - NONINFECTIVE GASTROENTERITIS AND COLITIS, UNSPECIFIED (2) Metabolic acidosis Current Visit: Yes Status: Acute Assessment & Plan: ? if related to diarrhea and with uncontrolled diabetes, increase lantus today. 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
[2020-11-18] MEDS: Sodium Chloride 0.9% 1000 ML 1,000 ML IV SCH (08:55)
[2020-11-18] MEDS: HUMALOG SQ PRN ×2 (08:56→12:41)
[2020-11-18] MEDS: Protonix 20MG Tablet PO SCH (08:56)
[2020-11-18] MEDS: Toprol-Xl 25MG Tablets PO SCH (10:18)
[2020-11-18] MEDS ORDERED: HUMULIN R 100 UNIT in Sodium Chloride 0.9% 100 ML IVPB 100 ML IV PRN (12:29)
[2020-11-18] MEDS ORDERED: NON-FORMULARY ITEM IV SCH (13:00)
[2020-11-18] MEDS: Sodium Bicarbonate 50 MEQ/50 ML VIAL*** 150 MEQ in Dextrose 5%/Water IV Soln. 1000 ML 1... IV SCH ×2 (13:40→21:48)
[2020-11-18 13:59] LABS: ANION GAP 18.5 MEQ/L (5-15); CHLORIDE 107 mmol/L (98-107); Calcium 8.1 mg/dL (8.4-10.2); Creatinine 1 0.44 mg/dL (0.52-1.04); EST GLOMERULAR FILTRATION RATE > 60.0 ML/MIN; Glucose 338 mg/dL (74-106); Potassium 4.2 mmol/L (3.5-5.1); SODIUM 135 mmol/L (137-145)
[2020-11-18 14:02] LABS: BLOOD UREA NITROGEN < 2 mg/dL (7-17)
[2020-11-18 14:03] LABS: Carbon Dioxide 14 mmol/L (22-30)
--- NOTE | 2020-11-18 15:07 | CONS ---
CONSULT DATE: 11/18/2020 REASON FOR CONSULT: Acidosis. HISTORY: The patient is a 45 year-old lady who has history of diabetes, chronic draining cyst, ruptured cyst in the groin area. Apparently she has been on Levaquin in the past. She was scheduled for a wide excision of this area next week. She started having generalized diarrhea and has been having diarrhea for almost ten days, not getting any better. She was recently in the hospital for diabetes ketoacidosis the earlier part of the month. Her Clostridium difficile had been tested here and COVID-19 has been tested which have been both negative. She continues to have diarrhea. Her vomiting is somewhat better. She has some nausea. Because of her acidosis nephrology service was consulted. REVIEW OF SYSTEMS: The patient complains of continued diarrhea, denies any abdominal pain or any problems with active vomiting. She complained of some nausea and dry heaves, low grade fever. All other systems were reviewed and negative except as stated above. PAST MEDICAL HISTORY: Diabetes mellitus type II. Morbid obesity. Osteoarthritis. Hypothyroidism. PAST SURGICAL HISTORY: section in the past. I&D in the groin area in the past. MEDICATIONS: She is on Levaquin. Her home medications and medicines in the hospital were reviewed as well. ALLERGIES: NKDA. LATEX. SOCIAL HISTORY: Former smoker, denies any alcohol or illicit substance abuse. FAMILY HISTORY: Denies any history kidney disease, acidosis problems in the family. PHYSICAL EXAMINATION: The patient is awake, alert, oriented, not in acute distress. VITAL SIGNS: Respiratory rate 20, blood pressure 139/70. Saturating 93%. HEENT: Head normocephalic. Eyes nonicteric, positive pallor. ENT mucosa moist. NECK: Supple. No JVD. Trachea midline. CHEST: Bilateral clear to auscultation. CVS: Tachycardic. EXTREMITIES: No peripheral edema. ABDOMEN: Soft, nontender. NEUROLOGIC: Awake, alert, oriented x3. Following commands and answering all questions appropriately. PSYCHIATRIC: Appropriate mood and affect. SKIN: Warm and dry. LAB DATA AND TESTS: Hemoglobin 10.9, white blood cells 6.4, PLT count 434,000. Sodium 136, potassium 3.9, bicarb 11, BUN less than 2, creatinine 0.51, chloride 109. Anion gap of 18. Clostridium difficile negative. Blood glucose 298. ASSESSMENT AND PLAN: A 45 year-old lady with medical problems: 1) Acidosis/Metabolic acidosis both anion gap and nonanion gap, hypokalemic likely due to combination of diarrhea related bicarb loss and diabetic ketoacidosis. I will start on bicarb drip and will start insulin drip, will continue to monitor fluids. 2) Diarrhea. I will check for Clostridium difficile again with PCR and she may need GI evaluation. Continue medicines per primary team. 3) Anemia, will order work up. 4) Diabetes mellitus type II with possible diabetic ketoacidosis management per primary team. Thank you for this consultation. Please do not hesitate to contact me if there are any questions.
[2020-11-18] MEDS: Magnesium 1 Gm / 100 Ml D5W*** 100 ML IV ONE ×2 (15:30→16:06)
[2020-11-18 16:45] LABS: 027 TOX PROD PRESUMPTIVE NEGATIVE (NEGATIVE); TOXIGENIC C. DIFF ORG NEGATIVE (NEGATIVE)
[2020-11-18 18:55] LABS: CHLORIDE 108 mmol/L (98-107); Calcium 8.1 mg/dL (8.4-10.2); Carbon Dioxide 21 mmol/L (22-30); Creatinine 1 0.47 mg/dL (0.52-1.04); EST GLOMERULAR FILTRATION RATE > 60.0 ML/MIN; Glucose 119 mg/dL (74-106); Potassium 3.1 mmol/L (3.5-5.1); SODIUM 138 mmol/L (137-145)
[2020-11-18 19:06] LABS: BLOOD UREA NITROGEN < 2 mg/dL (7-17)
[2020-11-18] MEDS ORDERED: K-LYTE 25 MEQ PO ONE (19:45)
[2020-11-18] MEDS ORDERED: HUMALOG SQ PRN (20:04)
[2020-11-18] MEDS: POTASSIUM CHLORIDE 20 mEq IN WATER 100ML 20 MEQ/100 ML BAG IV SCH (21:02)
[2020-11-18] MEDS ORDERED: Sodium Bicarbonate 50 MEQ/50 ML VIAL ONE (21:20)
[2020-11-18] MEDS ORDERED: SODIUM BICARBONATE IV SCH (21:30)
[2020-11-18] MEDS ORDERED: [UNRECOGNIZED DRUG - OTHER] IV SCH (21:30)
[2020-11-18] MEDS: Lantus Insulin SQ SCH (22:00)
[2020-11-19] MEDS: Zosyn 3.375 GM Vial 3.375 GM in Sodium Chloride 100ML MINI-BAG PLUS 100 ML IV SCH ×2 (00:16→05:52)
[2020-11-19] MEDS: POTASSIUM CHLORIDE 20 mEq IN WATER 100ML 20 MEQ/100 ML BAG IV SCH (00:25)
[2020-11-19 06:41] LABS: Hematocrit 29.5 % (35-47); Hemoglobin 9.8 gm/dl (12.0-16.0); Mean Corpuscular Hemoglobin 28.9 pg (26-32); Mean Corpuscular Hgb Concent. 33.2 g/dl (32-36); Mean Platelet Volume 8.4 fl (7.5-11.0); Platelet Count 356 K/mm3 (150-450); Red Blood Count 3.39 M/mm3 (4.1-5.4); Red Cell Distribution Width 14.9 % (11.5-14.0); White Blood Count 4.8 K/mm3 (4.0-10.5)
[2020-11-19 06:52] LABS: ALBUMIN 2.5 g/dL (3.5-5.0); ALKALINE PHOSPHATASE 63 U/L (38-126); ANION GAP 8.7 MEQ/L (5-15); BLOOD UREA NITROGEN < 2 mg/dL (7-17); CHLORIDE 105 mmol/L (98-107); Calcium 7.6 mg/dL (8.4-10.2); Carbon Dioxide 26 mmol/L (22-30); Creatinine 1 0.37 mg/dL (0.52-1.04); EST GLOMERULAR FILTRATION RATE > 60.0 ML/MIN; Glucose 164 mg/dL (74-106); MAGNESIUM 1.9 mg/dL (1.6-2.3); Potassium 3.5 mmol/L (3.5-5.1); SGOT/AST 13 U/L (14-36); SGPT/ALT 9 U/L (0-35); SODIUM 137 mmol/L (137-145); Total Protein 5.2 g/dL (6.3-8.2)
[2020-11-19 08:26] LABS: BAND 2 % (0.0-2.0); Eosinophil 4 % (0.00-3.0); Lymphocytes 32 % (24-44); Monocyte 10 % (0.0-12.0); Neutrophils 52 % (36.0-66.0); Platelet Estimate NORMAL (NORMAL); Total Cells Counted 100
[2020-11-19 08:27] LABS: ANISOCYTOSIS 1+; Hypochromia 1+; Microcytosis 1+
--- NOTE | 2020-11-19 09:19 | PCM.DS ---
Discharge Summary Date of Admission: 11/15/20 11:16 Admitting Physician: MILO ESPINO Consults: Consults on Case 11/18/20 08:39 Consult Nephrology ROUTINE Primary Care Provider: MILO ESPINO Allergies Allergies latex Allergy (Intermediate, Verified 11/14/20 12:33) Rash Hospital Summary - Hospital Course Hospital Course: patient was admitted with diarrhea, found to have diffuse colitis, developed DKA and was started on insulin drip, seen by nephrology and also received bicarb. has had recent antibiotic therapy for recurrent pelvic abscess but c diff was negative, entire GI panel was negative as well. markedly elevated ESR, question presence of IBD with recurrent pelvic abscess, diffuse colitis and no im provement with flagyl then it was discontinued due to nausea and changed to zosyn. patient is being transferred for GI consult at [facility] with assistance of Dr Coker - Vitals & Intake/Output Vital Signs: Vital Signs Temperature 97.8 F 11/19/20 07:00 Pulse Rate 95 H 11/19/20 08:00 Respiratory Rate 16 11/19/20 07:00 Blood Pressure 148/91 11/19/20 07:00 O2 Sat by Pulse Oximetry 96 11/19/20 07:53 Intake & Output: Intake & Output 11/16/20 11/17/20 11/18/20 11/19/20 11:59 11:59 11:59 11:59 Intake Total 5167 2139 3226 4686 Output Total 6558 853 0996 Balance 3567 2139 3026 2661 Weight 126 kg 126 kg 124.5 kg 124.5 kg - Lab Result Diagrams: 11/19/20 06:30 11/19/20 06:30 Lab Results-Last 24 Hrs: Lab Results-Last 24 Hours 11/18/20 11/18/20 11/18/20 Range/Units 05:00 11:25 13:35 WBC (4.0-10.5) K/mm3 RBC (4.1-5.4) M/mm3 Hgb (12.0-16.0) gm/dl Hct (35-47) % MCV (78-100) fl MCH (26-32) pg MCHC (32-36) g/dl RDW (11.5-14.0) % Plt Count (150-450) K/mm3 MPV (7.5-11.0) fl Segmented Neutrophils (36.0-66.0) % Band Neutrophils (0.0-2.0) % Lymphocytes (Manual) (24-44) % Monocytes (Manual) (0.0-12.0) % Eosinophils (Manual) (0.00-3.0) % Hypochromia Platelet Estimate (NORMAL) RBC Morphology Anisocytosis Microcytosis ESR 48 H (0-20) mm/hr Sodium (137-145) mmol/L Potassium (3.5-5.1) mmol/L Chloride (98-107) mmol/L Carbon Dioxide (22-30) mmol/L Anion Gap (5-15) MEQ/L BUN (7-17) mg/dL Creatinine (0.52-1.04) mg/dL Estimated GFR ML/MIN Glucose (74-106) mg/dL POC Glucometer 392 H 338 H (74 to 106) mg/dL Calcium (8.4-10.2) mg/dL Magnesium (1.6-2.3) mg/dL Iron (37-170) ug/dL Total Bilirubin (0.2-1.3) mg/dL AST (14-36) U/L ALT (0-35) U/L Alkaline Phosphatase (38-126) U/L Serum Total Protein (6.3-8.2) g/dL Albumin (3.5-5.0) g/dL C. difficile Screen (NEGATIVE) C.difficile 027-NAP1-B1 (NEGATIVE) 11/18/20 11/18/20 11/18/20 Range/Units 13:40 13:40 14:50 WBC (4.0-10.5) K/mm3 RBC (4.1-5.4) M/mm3 Hgb (12.0-16.0) gm/dl Hct (35-47) % MCV (78-100) fl MCH (26-32) pg MCHC (32-36) g/dl RDW (11.5-14.0) % Plt Count (150-450) K/mm3 MPV (7.5-11.0) fl Segmented Neutrophils (36.0-66.0) % Band Neutrophils (0.0-2.0) % Lymphocytes (Manual) (24-44) % Monocytes (Manual) (0.0-12.0) % Eosinophils (Manual) (0.00-3.0) % Hypochromia Platelet Estimate (NORMAL) RBC Morphology Anisocytosis Microcytosis ESR (0-20) mm/hr Sodium 135 L (137-145) mmol/L Potassium 4.2 (3.5-5.1) mmol/L Chloride 107 (98-107) mmol/L Carbon Dioxide 14 L* (22-30) mmol/L Anion Gap 18.5 H (5-15) MEQ/L BUN < 2 L (7-17) mg/dL Creatinine 0.44 L (0.52-1.04) mg/dL Estimated GFR > 60.0 ML/MIN Glucose 338 H (74-106) mg/dL POC Glucometer 274 H (74 to 106) mg/dL Calcium 8.1 L (8.4-10.2) mg/dL Magnesium 1.6 (1.6-2.3) mg/dL Iron (37-170) ug/dL Total Bilirubin (0.2-1.3) mg/dL AST (14-36) U/L ALT (0-35) U/L Alkaline Phosphatase (38-126) U/L Serum Total Protein (6.3-8.2) g/dL Albumin (3.5-5.0) g/dL C. difficile Screen (NEGATIVE) C.difficile 027-NAP1-B1 (NEGATIVE) 11/18/20 11/18/20 11/18/20 Range/Units 15:51 16:52 17:56 WBC (4.0-10.5) K/mm3 RBC (4.1-5.4) M/mm3 Hgb (12.0-16.0) gm/dl Hct (35-47) % MCV (78-100) fl MCH (26-32) pg MCHC (32-36) g/dl RDW (11.5-14.0) % Plt Count (150-450) K/mm3 MPV (7.5-11.0) fl Segmented Neutrophils (36.0-66.0) % Band Neutrophils (0.0-2.0) % Lymphocytes (Manual) (24-44) % Monocytes (Manual) (0.0-12.0) % Eosinophils (Manual) (0.00-3.0) % Hypochromia Platelet Estimate (NORMAL) RBC Morphology Anisocytosis Microcytosis ESR (0-20) mm/hr Sodium (137-145) mmol/L Potassium (3.5-5.1) mmol/L Chloride (98-107) mmol/L Carbon Dioxide (22-30) mmol/L Anion Gap (5-15) MEQ/L BUN (7-17) mg/dL Creatinine (0.52-1.04) mg/dL Estimated GFR ML/MIN Glucose (74-106) mg/dL POC Glucometer 204 H 173 H 124 H (74 to 106) mg/dL Calcium (8.4-10.2) mg/dL Magnesium (1.6-2.3) mg/dL Iron (37-170) ug/dL Total Bilirubin (0.2-1.3) mg/dL AST (14-36) U/L ALT (0-35) U/L Alkaline Phosphatase (38-126) U/L Serum Total Protein (6.3-8.2) g/dL Albumin (3.5-5.0) g/dL C. difficile Screen (NEGATIVE) C.difficile 027-NAP1-B1 (NEGATIVE) 11/18/20 11/18/20 11/18/20 Range/Units 18:25 18:25 19:00 WBC (4.0-10.5) K/mm3 RBC (4.1-5.4) M/mm3 Hgb (12.0-16.0) gm/dl Hct (35-47) % MCV (78-100) fl MCH (26-32) pg MCHC (32-36) g/dl RDW (11.5-14.0) % Plt Count (150-450) K/mm3 MPV (7.5-11.0) fl Segmented Neutrophils (36.0-66.0) % Band Neutrophils (0.0-2.0) % Lymphocytes (Manual) (24-44) % Monocytes (Manual) (0.0-12.0) % Eosinophils (Manual) (0.00-3.0) % Hypochromia Platelet Estimate (NORMAL) RBC Morphology Anisocytosis Microcytosis ESR (0-20) mm/hr Sodium 138 (137-145) mmol/L Potassium 3.1 L D (3.5-5.1) mmol/L Chloride 108 H (98-107) mmol/L Carbon Dioxide 21 L (22-30) mmol/L Anion Gap 12.0 (5-15) MEQ/L BUN < 2 L (7-17) mg/dL Creatinine 0.47 L (0.52-1.04) mg/dL Estimated GFR > 60.0 ML/MIN Glucose 119 H (74-106) mg/dL POC Glucometer 109 H (74 to 106) mg/dL Calcium 8.1 L (8.4-10.2) mg/dL Magnesium 2.1 (1.6-2.3) mg/dL Iron (37-170) ug/dL Total Bilirubin (0.2-1.3) mg/dL AST (14-36) U/L ALT (0-35) U/L Alkaline Phosphatase (38-126) U/L Serum Total Protein (6.3-8.2) g/dL Albumin (3.5-5.0) g/dL C. difficile Screen (NEGATIVE) C.difficile 027-NAP1-B1 (NEGATIVE) 11/18/20 11/18/20 11/18/20 Range/Units 20:04 21:15 22:18 WBC (4.0-10.5) K/mm3 RBC (4.1-5.4) M/mm3 Hgb (12.0-16.0) gm/dl Hct (35-47) % MCV (78-100) fl MCH (26-32) pg MCHC (32-36) g/dl RDW (11.5-14.0) % Plt Count (150-450) K/mm3 MPV (7.5-11.0) fl Segmented Neutrophils (36.0-66.0) % Band Neutrophils (0.0-2.0) % Lymphocytes (Manual) (24-44) % Monocytes (Manual) (0.0-12.0) % Eosinophils (Manual) (0.00-3.0) % Hypochromia Platelet Estimate (NORMAL) RBC Morphology Anisocytosis Microcytosis ESR (0-20) mm/hr Sodium (137-145) mmol/L Potassium (3.5-5.1) mmol/L Chloride (98-107) mmol/L Carbon Dioxide (22-30) mmol/L Anion Gap (5-15) MEQ/L BUN (7-17) mg/dL Creatinine (0.52-1.04) mg/dL Estimated GFR ML/MIN Glucose (74-106) mg/dL POC Glucometer 82 125 H 162 H (74 to 106) mg/dL Calcium (8.4-10.2) mg/dL Magnesium (1.6-2.3) mg/dL Iron (37-170) ug/dL Total Bilirubin (0.2-1.3) mg/dL AST (14-36) U/L ALT (0-35) U/L Alkaline Phosphatase (38-126) U/L Serum Total Protein (6.3-8.2) g/dL Albumin (3.5-5.0) g/dL C. difficile Screen (NEGATIVE) C.difficile 027-NAP1-B1 (NEGATIVE) 11/18/20 11/18/20 11/19/20 Range/Units 23:26 Unknown 00:17 WBC (4.0-10.5) K/mm3 RBC (4.1-5.4) M/mm3 Hgb (12.0-16.0) gm/dl Hct (35-47) % MCV (78-100) fl MCH (26-32) pg MCHC (32-36) g/dl RDW (11.5-14.0) % Plt Count (150-450) K/mm3 MPV (7.5-11.0) fl Segmented Neutrophils (36.0-66.0) % Band Neutrophils (0.0-2.0) % Lymphocytes (Manual) (24-44) % Monocytes (Manual) (0.0-12.0) % Eosinophils (Manual) (0.00-3.0) % Hypochromia Platelet Estimate (NORMAL) RBC Morphology Anisocytosis Microcytosis ESR (0-20) mm/hr Sodium (137-145) mmol/L Potassium (3.5-5.1) mmol/L Chloride (98-107) mmol/L Carbon Dioxide (22-30) mmol/L Anion Gap (5-15) MEQ/L BUN (7-17) mg/dL Creatinine (0.52-1.04) mg/dL Estimated GFR ML/MIN Glucose (74-106) mg/dL POC Glucometer 193 H 183 H (74 to 106) mg/dL Calcium (8.4-10.2) mg/dL Magnesium (1.6-2.3) mg/dL Iron (37-170) ug/dL Total Bilirubin (0.2-1.3) mg/dL AST (14-36) U/L ALT (0-35) U/L Alkaline Phosphatase (38-126) U/L Serum Total Protein (6.3-8.2) g/dL Albumin (3.5-5.0) g/dL C. difficile Screen NEGATIVE (NEGATIVE) C.difficile 027-NAP1-B1 PRESUMPTIVE NEGATIVE (NEGATIVE) 11/19/20 11/19/20 11/19/20 Range/Units 02:14 04:05 06:30 WBC 4.8 (4.0-10.5) K/mm3 RBC 3.39 L (4.1-5.4) M/mm3 Hgb 9.8 L (12.0-16.0) gm/dl Hct 29.5 L (35-47) % MCV 87.0 (78-100) fl MCH 28.9 (26-32) pg MCHC 33.2 (32-36) g/dl RDW 14.9 H (11.5-14.0) % Plt Count 356 (150-450) K/mm3 MPV 8.4 (7.5-11.0) fl Segmented Neutrophils 52 (36.0-66.0) % Band Neutrophils 2 (0.0-2.0) % Lymphocytes (Manual) 32 (24-44) % Monocytes (Manual) 10 (0.0-12.0) % Eosinophils (Manual) 4 H (0.00-3.0) % Hypochromia 1+ Platelet Estimate NORMAL (NORMAL) RBC Morphology ABNORMAL Anisocytosis 1+ Microcytosis 1+ ESR (0-20) mm/hr Sodium (137-145) mmol/L Potassium (3.5-5.1) mmol/L Chloride (98-107) mmol/L Carbon Dioxide (22-30) mmol/L Anion Gap (5-15) MEQ/L BUN (7-17) mg/dL Creatinine (0.52-1.04) mg/dL Estimated GFR ML/MIN Glucose (74-106) mg/dL POC Glucometer 164 H 153 H (74 to 106) mg/dL Calcium (8.4-10.2) mg/dL Magnesium (1.6-2.3) mg/dL Iron (37-170) ug/dL Total Bilirubin (0.2-1.3) mg/dL AST (14-36) U/L ALT (0-35) U/L Alkaline Phosphatase (38-126) U/L Serum Total Protein (6.3-8.2) g/dL Albumin (3.5-5.0) g/dL C. difficile Screen (NEGATIVE) C.difficile 027-NAP1-B1 (NEGATIVE) 11/19/20 11/19/20 11/19/20 Range/Units 06:30 06:30 07:49 WBC (4.0-10.5) K/mm3 RBC (4.1-5.4) M/mm3 Hgb (12.0-16.0) gm/dl Hct (35-47) % MCV (78-100) fl MCH (26-32) pg MCHC (32-36) g/dl RDW (11.5-14.0) % Plt Count (150-450) K/mm3 MPV (7.5-11.0) fl Segmented Neutrophils (36.0-66.0) % Band Neutrophils (0.0-2.0) % Lymphocytes (Manual) (24-44) % Monocytes (Manual) (0.0-12.0) % Eosinophils (Manual) (0.00-3.0) % Hypochromia Platelet Estimate (NORMAL) RBC Morphology Anisocytosis Microcytosis ESR (0-20) mm/hr Sodium 137 (137-145) mmol/L Potassium 3.5 (3.5-5.1) mmol/L Chloride 105 (98-107) mmol/L Carbon Dioxide 26 (22-30) mmol/L Anion Gap 8.7 (5-15) MEQ/L BUN < 2 L (7-17) mg/dL Creatinine 0.37 L (0.52-1.04) mg/dL Estimated GFR > 60.0 ML/MIN Glucose 164 H (74-106) mg/dL POC Glucometer 143 H (74 to 106) mg/dL Calcium 7.6 L (8.4-10.2) mg/dL Magnesium 1.9 (1.6-2.3) mg/dL Iron 55 (37-170) ug/dL Total Bilirubin 0.30 (0.2-1.3) mg/dL AST 13 L (14-36) U/L ALT 9 (0-35) U/L Alkaline Phosphatase 63 (38-126) U/L Serum Total Protein 5.2 L (6.3-8.2) g/dL Albumin 2.5 L (3.5-5.0) g/dL C. difficile Screen (NEGATIVE) C.difficile 027-NAP1-B1 (NEGATIVE) Micro Results-Entire Visit: Microbiology 11/14/20 12:48 Salmonella/Shigella Screen - Final Stool Stool Culture Result 1 - Final Escherichia coli Shiga Toxins EIA - Final Giardia lamblia (PCR) - Final Cryptosporidium Antigen - Final 11/14/20 12:48 Urine Culture - Final Clean Catch Midstream <10K NORMAL SKIN MAEVE PROBABLE SKIN CONTAMINANT Accuchecks Date 11/19/20 Date 11/18/20 Date 11/18/20 Date 11/18/20 Date 11/18/20 Date 11/18/20 Time 08:00 Time 14:52 - Procedures and Test Procedures and Tests throughout Hospitalization: Therapy Orders & Screens 11/14/20 20:58 OT Screen per Nursing Assess ONCE Comment: Protocol Order Physician Instructions: Greater than 3 points order OT Admission Screening Reason For Exam: Triggered on Admission Diagnosis: COLITIS Open Wound/Cellutlitis/Pressure Ulcers: Yes Acute Fx/ORIF/Change in wt bearing status: No Severe MUSCULOSKELETAL pain: No ADL Dysfunction: No Acute CVA w/Hemiparesis/Hemiplegia: No Decreased Functional Mobility/Strength: No Sprain/Strain: No Acute Post-op Mobility Dysfunction: No Total Points: 5 PT Screen per Nursing Assess ONCE Comment: Protocol Order Physician Instructions: Greater than 3 points order PT Admission Screenin Reason For Exam: Triggered on Admission Diagnosis: COLITIS Open Wound/Cellutlitis/Pressure Ulcers: Yes Acute Fx/ORIF/Change in wt bearing status: No Severe MUSCULOSKELETAL pain: No ADL Dysfunction: No Acute CVA w/Hemiparesis/Hemiplegia: No Decreased Functional Mobility/Strength: No Sprain/Strain: No Acute Post-op Mobility Dysfunction: No Total Points: 5 Discharge Exam General Appearance: no apparent distress, obese Neurologic Exam: alert, oriented x 3, cooperative Respiratory Exam: normal breath sounds, lungs clear, No respiratory distress Cardiovascular Exam: regular rate/rhythm, normal heart sounds Gastrointestinal/Abdomen Exam: soft, No tenderness, No mass Skin Exam: normal color, warm, dry Final Diagnosis/Problem List - Final Discharge Diagnosis/Problem (1) Colitis Current Visit: Yes Status: Acute Assessment & Plan: no improvement on zosyn, panel is negative. no obvious etiology viral or bacterial. elevated sed rate with recurrent DKA noted, question IBD so transferred for GI consultation Code(s): K52.9 - NONINFECTIVE GASTROENTERITIS AND COLITIS, UNSPECIFIED (2) Metabolic acidosis Current Visit: Yes Status: Acute Assessment & Plan: resolved, DKA is resolved and anion gap is closed. 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
[2020-11-19] MEDS: Protonix 20MG Tablet PO SCH (09:48)
[2020-11-19] MEDS: Toprol-Xl 25MG Tablets PO SCH (09:48)
[2020-11-19] MEDS: Lantus Insulin SQ SCH (09:49)
[2020-11-19 10:39] LABS: Ferritin 148 ng/mL (6.24-137)
[2020-11-19 11:16] VITALS: BP 130/88; PULSE 96; O2SAT 97
[2020-11-19 11:36] LABS: Vitamin B12 > 1000 pg/mL (239-931)
[2020-11-19 13:38] LABS: Folate (Folic Acid) 9.17 ng/mL (2.76 - >20)
== END 2020-11-19 11:11 | disposition short-term general hospital (02) | DRG 392 ==
LOC: ED 12:21 → MED SURG 19:34 → OBSVTOIN 11-15 11:16 → ICU 11-18 12:30
PROVIDERS: ADMIT Family Medicine; ATTEND Family Medicine
DX: K52.9 Noninfective gastroenteritis and colitis, unspecified (principal); E87.2 Acidosis; N76.4 Abscess of vulva; D64.9 Anemia, unspecified; E11.9 Type 2 diabetes mellitus without complications; E03.9 Hypothyroidism, unspecified; Z79.4 Long term (current) use of insulin; R82.998 Other abnormal findings in urine; E66.01 Morbid (severe) obesity due to excess calories; R11.0 Nausea; R00.0 Tachycardia, unspecified
CPT/HCPCS: 0097U; 0241U; 36000; 36415; 74177; 80048; 80053; 81001; 82150; 82274; 82607; 82728; 82746; 82947; 83540; 83605; 83690; 83735; 85025; 85652; 87045; 87046; 87086; 87328; 87329; 87493; 96360; 96365; 99285; G0378; J1817; J2405; J3475; J3480; A9270-GY; G0328

== ENCOUNTER 2020-12-08 08:36 | Emergency (ER) | payer OTHER ==
[2020-12-08 09:02] LABS: A-aADO2 36; ABG HEMOGLOBIN 10.5; ABG POTASSIUM 3.7 (3.5-5.1); ARTERIAL BLOOD GAS BASE EXCESS 7.4 (-2.0-2.0); ARTERIAL BLOOD GAS FIO2 21 %; ARTERIAL BLOOD GAS PCO2 40 mmHg (35-45); ARTERIAL BLOOD GAS PO2 64 mmHg (75-100); CARBOXYHEMOGLOBIN 1.8 % THgb (0.0-6.9); HCO3- 31.2 (22-28); HGB O2 SAT 92.3 g/dF (94-100)
[2020-12-08 09:03] LABS: ABG SITE RIGHT BRACHIAL
[2020-12-08 09:08] LABS: Absolute Neutrophil Ct (ANC) 5.69 (1.4-6.9); BASOPHIL % 0.3 % (0.0-0.4); Basophil (Absolute #) 0.02 (0-0.4); Eosinophil % 0.4 % (0.00-5.0); Eosinophil (Absolute #) 0.03 (0-0.5); Hematocrit 29.8 % (35-47); Hemoglobin 9.3 gm/dl (12.0-16.0); Lymphocyte (Absolute #) 1.34 (1.0-4.6); Lymphocytes % 16.8 % (24.0-44.0); Mean Cell Volume 87.1 fl (78-100); Mean Corpuscular Hemoglobin 27.2 pg (26-32); Mean Corpuscular Hgb Concent. 31.2 g/dl (32-36); Mean Platelet Volume 9.1 fl (7.5-11.0); Monocyte (Absolute #) 0.89 (0.0-1.3); Monocytes % 11.2 % (0.0-12.0); Neutrophil % 71.3 % (36.0-66.0); Platelet Count 455 K/mm3 (150-450); Red Blood Count 3.42 M/mm3 (4.1-5.4); Red Cell Distribution Width 14.7 % (11.5-14.0)
--- NOTE | 2020-12-08 09:18 | ERPHSYRPT ---
- History of Present Illness Historian: patient Patient Subjective Stated Complaint: vomiting/abdominal pain Triage Nursing Assessment: Patient brought into ED via EMS and transferred to bed with assist of 3. Patient A+O X3. Patient's skin pale, warm and dry. Patient noted to be groggy. Patient states she has been having diarrhea 3-4 x after each meal and vomiting for 5 weeks. Patient states she had been vomiting a few days ago. Abdomen soft and round with BS X 4. Patient complains of constant aching pain 5/10. Physician History: 45 yo wf w N/V/D x5wks. Pt discharged from [facility] on 12/06/20 after an extensive work up. She has had mild hematochezia but denies hematemesis/melena. Pt did not receive a colonoscopy at [facility] but had 2 CT scans that demonstrated colitis. Pt has mild estevan-umbilical abdominal pain described as an ache and rated a 5/10. Nothing makes the fever better or worse. She has had mild dysuria wo hematuria. Pt describes a subjective fever. She is currently on Cipro. Timing/Duration: other (5wks) Quality: aching Abdominal Pain Onset Location: epigastric Pain Radiation: back Severity of Pain-Max: moderate Severity of Pain-Current: moderate Modifying Factors: Improves With: nothing Associated Symptoms: diarrhea, loss of appetite, nausea, vomiting Previous symptoms: same symptoms as today Allergies/Adverse Reactions: latex Allergy (Intermediate, Verified 12/08/20 08:42) Rash Home Medications: Insulin Aspart [Novolog] 1 unit SQ TIDWMEALS 10/27/20 [History] Insulin Detemir [Levemir] 50 unit SQ BID 11/10/20 [History] Hx Tetanus, Diphtheria Vaccination/Date Given: No Hx Influenza Vaccination/Date Given: Yes Hx Pneumococcal Vaccination/Date Given: No Immunizations Up to Date: Yes Travel Risk - International Travel Have you traveled outside of the country in past 3 weeks: No - Coronavirus Screening Are you exhibiting any of the following symptoms?: No Close contact with a COVID-19 positive Pt in past 14-21 Days: No - Vaccine Status Have you recieved a Covid-19 vaccination: No - Review of Systems Constitutional: No Symptoms, Fever, Fatigue, Lethargy Eyes: No Symptoms Ears, Nose, & Throat: No Symptoms Respiratory: No Symptoms Cardiac: No Symptoms Abdominal/Gastrointestinal: Abdominal Pain, Nausea, Vomiting, Diarrhea, Appetite Changes Genitourinary Symptoms: No Symptoms, Dysuria Musculoskeletal: No Symptoms Skin: No Symptoms Neurological: No Symptoms Psychological: No Symptoms Endocrine: No Symptoms Hematologic/Lymphatic: No Symptoms Immunological/Allergic: No Symptoms - Past Medical History Pertinent Past Medical History: Yes Neurological History: No Pertinent History ENT History: No Pertinent History Cardiac History: No Pertinent History Respiratory History: Bronchitis Endocrine Medical History: Diabetes Type II, Hypothyroidism Musculoskeletal History: Arthritis GI Medical History: Hemorrhoids History: No Pertinent History Psycho-Social History: No Pertinent History Female Reproductive Disorders: No Pertinent History - Past Surgical History Past Surgical History: Yes Neuro Surgical History: No Pertinent History Cardiac: No Pertinent History Respiratory: No Pertinent History Gastrointestinal: No Pertinent History Genitourinary: No Pertinent History Musculoskeletal: No Pertinent History Female Surgical History: Section Other Surgical History: I & D labial abcess - Social History Smoking Status: Former smoker How long have you smoked: 14 Exposure to second hand smoke: No Drug Use: none Patient Lives Alone: No Significant Family History: no pertinent family hx - Female History Hx Last Menstrual Period: 11/28/2020 Hx Now: No - Nursing Vital Signs Nursing Vital Signs: Initial Vital Signs Pulse Rate 93 H 12/08/20 08:44 Respiratory Rate 18 12/08/20 08:44 Blood Pressure 113/72 12/08/20 08:44 O2 Sat by Pulse Oximetry 94 L 12/08/20 08:44 Pain Scale Pain Intensity 4 - Physical Exam General Appearance: no apparent distress Eye Exam: PERRL/EOMI, eyes nml inspection Ears, Nose, Throat Exam: normal ENT inspection, TMs normal, pharynx normal Neck Exam: normal inspection, non-tender, supple, full range of motion, No meningismus, No mass, No Brudzinski, No Kernig's Respiratory Exam: normal breath sounds, lungs clear, airway intact, No respi ratory distress Cardiovascular Exam: tachycardia Gastrointestinal/Abdomen Exam: soft, normal bowel sounds, No tenderness Back Exam: normal inspection, normal range of motion, No CVA tenderness, No vertebral tenderness Extremity Exam: normal inspection, normal range of motion Neurologic Exam: alert, oriented x 3, cooperative, brewery pumper II-XII nml as tested, normal mood/affect, sensation nml, No motor deficits, No sensory deficit Skin Exam: normal color, warm, dry Lymphatic Exam: No adenopathy SpO2 Interpretation: normal SpO2: 94 O2 Delivery: Room Air - CT Exams Chest CT Interpretation: Discussed w/radiologist (Atelectasis R lung base) Abdomen/Pelvis CT Interpretation: Discussed w/radiologist (Colitis) Ordered Tests: Active Orders 24 hr Category Date Time Status Bedrest with BRP/BSC ROUTINE Activity 12/08/20 14:25 Completed Code Status Order ROUTINE Care 12/08/20 14:25 Completed EKG-ER Only STAT Care 12/08/20 08:41 Completed IV Care Q6H Care 12/08/20 14:25 Completed IV Insertion STAT Care 12/08/20 08:[address] in Observation ROUTINE Care 12/08/20 14:25 Completed Vital Signs Q4H Care 12/08/20 14:25 Completed Consult Surgery ROUTINE Cons 12/08/20 14:25 Completed NPO Diet 12/08/20 14:25 Completed ABDOMEN AND PELVIS W CONTRAST [CT] Stat Exams 12/08/20 10:35 Completed CHEST WITH CONTRAST [CT] Stat Exams 12/08/20 10:55 Completed ABG [ARTERIAL BLOOD GASES] Stat Lab 12/08/20 08:45 Completed AMYLASE Stat Lab 12/08/20 08:51 Completed BLOOD CULTURE Stat Lab 12/08/20 14:25 Received CBC W DIFF Stat Lab 12/08/20 08:51 Completed CMP Stat Lab 12/08/20 08:51 Completed CULTURE,URINE Stat Lab 12/08/20 09:54 Received LIPASE Stat Lab 12/08/20 08:51 Completed Lactic Acid Stat Lab 12/08/20 08:41 Completed Stool Occult Blood [FECAL OCCULT BLOOD - SCREENING] Lab 12/08/20 12:21 Completed Stat TROPONIN Q3H Lab 12/08/20 08:51 Completed TROPONIN Q3H Lab 12/08/20 11:45 Completed TROPONIN Q3H Lab 12/08/20 15:08 Completed UA W/RFX UR CULTURE Stat Lab 12/08/20 09:54 Completed Transfer Order Routine Transfer 12/08/20 Ordered Medication Summary Discontinued Medications Generic Name Dose Route Start Last Admin Trade Name Freq PRN Reason Stop Dose Admin Droperidol 1.25 mg 12/08/20 17:28 12/08/20 17:37 Inapsine 5 Mg/2 Ml IV 12/08/20 17:29 1.25 mg STAT ONE Administration Droperidol Confirm 12/08/20 17:36 Inapsine 5 Mg/2 Ml Administered 12/08/20 17:37 Dose 5 mg .ROUTE .STK-MED ONE Hydromorphone HCl 0.5 mg 12/08/20 14:25 Hydromorphone 1 Mg/Ml Injection IV 12/13/20 14:24 Q1H PRN PRN PAIN Sodium Chloride 1,000 mls @ 120 mls/hr 12/08/20 14:30 12/08/20 17:37 Sodium Chloride 0.9% 1000 Ml IV 01/07/21 14:29 120 mls/hr .Q8H20M SHIMON Administration Promethazine HCl 25 mg/ Sodium 101 mls @ 200 mls/hr 12/08/20 17:27 12/08/20 17:34 Chloride IV 12/08/20 17:57 Not Given STAT ONE Sodium Chloride Confirm 12/08/20 17:36 Sodium Chloride 0.9% 1000 Ml Administered 12/08/20 17:37 Dose 1,000 mls @ ud .ROUTE .STK-MED ONE Insulin Human Lispro 0 unit 12/08/20 14:25 Humalog SQ 01/07/21 14:24 UD PRN HYPERGLYCEMIA Ondansetron HCl 4 mg 12/08/20 14:25 Zofran 4 Mg/2 Ml Vial IV 01/07/21 14:24 Q6H PRN PRN NAUSEA/VOMITING Pantoprazole Sodium 40 mg 12/09/20 10:00 Protonix 40 Mg Iv IV 01/08/21 09:59 Q24H10 [facility] Lab/Rad Data: Laboratory Result Diagrams 12/08/20 08:51 12/08/20 08:51 Laboratory Results 12/08/20 12/08/20 12/08/20 Range/Units 15:09 15:08 12:23 WBC (4.0-10.5) K/mm3 RBC (4.1-5.4) M/mm3 Hgb (12.0-16.0) gm/dl Hct (35-47) % MCV (78-100) fl MCH (26-32) pg MCHC (32-36) g/dl RDW (11.5-14.0) % Plt Count (150-450) K/mm3 MPV (7.5-11.0) fl Gran % (36.0-66.0) % Eos # (Auto) (0-0.5) Absolute Lymphs (auto) (1.0-4.6) Absolute Monos (auto) (0.0-1.3) Lymphocytes % (24.0-44.0) % Monocytes % (0.0-12.0) % Eosinophils % (0.00-5.0) % Basophils % (0.0-0.4) % Absolute Granulocytes (1.4-6.9) Basophils # (0-0.4) Puncture Site pCO2 (35-45) mmHg pO2 (75-100) mmHg Base Excess (-2.0-2.0) O2 Saturation (94-100) g/dF ABG pH (7.35-7.45) ABG HCO3 (22-28) ABG O2 Sat (Measured) (95-100) % A-a Gradient a/A Ratio Hemoglobin Carboxyhemoglobin (0.0-6.9) % THgb Methemoglobin (1.4-1.5) % Potassium (3.5-5.1) Temperature C POC O2 Flow Rate % Sodium (137-145) mmol/L Chloride (98-107) mmol/L Carbon Dioxide (22-30) mmol/L Anion Gap (5-15) MEQ/L BUN (7-17) mg/dL Creatinine (0.52-1.04) mg/dL Estimated GFR ML/MIN Glucose (74-106) mg/dL Lactic Acid (0.4-2.0) Calcium (8.4-10.2) mg/dL Total Bilirubin (0.2-1.3) mg/dL AST (14-36) U/L ALT (0-35) U/L Alkaline Phosphatase (38-126) U/L Troponin I < 0.012 (0.000-0.034) ng/mL Serum Total Protein (6.3-8.2) g/dL Albumin (3.5-5.0) g/dL Amylase (30-110) U/L Lipase (23-300) U/L Urine Color (YELLOW) Urine Appearance (CLEAR) Urine pH (5-6) Ur Specific [place] (1.005-1.025) Urine Protein (Negative) Urine Ketones (NEGATIVE) Urine Blood (0-5) Kade/ul Urine Nitrite (NEGATIVE) Urine Bilirubin (NEGATIVE) Urine Urobilinogen (0-1) mg/dL Ur Leukocyte Esterase (NEGATIVE) Urine WBC (Auto) (0-5) /HPF Urine RBC (Auto) (0-2) /HPF U Hyaline Cast (Auto) (0-2) /LPF U Epithel Cells (Auto) (FEW) /HPF Urine Bacteria (Auto) (NEGATIVE) /HPF Urine Mucus (Auto) (NEGATIVE) /HPF Urine Culture Reflexed (NO) Urine Glucose (NEGATIVE) mg/dL Stool Occult Blood (NEGATIVE) Stl C. cayetanensis PCR (NEGATIVE) Stl Adenov F 40/41 PCR (NEGATIVE) Stool Astrovirus (PCR) (NEGATIVE) Stool Cryptosporidium PCR (NEGATIVE) Stool EPEC (PCR) (NEGATIVE) Stool EAEC (PCR) (NEGATIVE) Stl E. histolytica PCR (NEGATIVE) Stl P. shigelloides PCR (NEGATIVE) Stool Sapovirus (PCR) (NEGATIVE) St Y.enterocolitica PCR (NEGATIVE) Stool Vibrio (PCR) (NEGATIVE) Stl Vibrio cholerae PCR (NEGATIVE) Stl Norovirus GI/GII PCR (NEGATIVE) Campylobacter (PCR) (NEGATIVE) C. difficile Screen NEGATIVE (NEGATIVE) C.difficile 027-[id number] PRESUMPTIVE NEGATIVE (NEGATIVE) C. difficile (PCR) (NEGATIVE) Enterotoxigenic E. coli (NEGATIVE) E.coli Shiga Toxins (NEGATIVE) Giardia lamblia (NEGATIVE) Influenza Type A Ag NEGATIVE (NEGATIVE) Influenza Type B Ag NEGATIVE (NEGATIVE) RSV (PCR) NEGATIVE (Negative) Rotavirus A (PCR) (NEGATIVE) Salmonella (PCR) (NEGATIVE) SARS-CoV-2 (PCR) NEGATIVE (NEGATIVE) Shigella (PCR) (NEGATIVE) 12/08/20 12/08/20 12/08/20 Range/Units 12:21 12:00 11:45 WBC (4.0-10.5) K/mm3 RBC (4.1-5.4) M/mm3 Hgb (12.0-16.0) gm/dl Hct (35-47) % MCV (78-100) fl MCH (26-32) pg MCHC (32-36) g/dl RDW (11.5-14.0) % Plt Count (150-450) K/mm3 MPV (7.5-11.0) fl Gran % (36.0-66.0) % Eos # (Auto) (0-0.5) Absolute Lymphs (auto) (1.0-4.6) Absolute Monos (auto) (0.0-1.3) Lymphocytes % (24.0-44.0) % Monocytes % (0.0-12.0) % Eosinophils % (0.00-5.0) % Basophils % (0.0-0.4) % Absolute Granulocytes (1.4-6.9) Basophils # (0-0.4) Puncture Site pCO2 (35-45) mmHg pO2 (75-100) mmHg Base Excess (-2.0-2.0) O2 Saturation (94-100) g/dF ABG pH (7.35-7.45) ABG HCO3 (22-28) ABG O2 Sat (Measured) (95-100) % A-a Gradient a/A Ratio Hemoglobin Carboxyhemoglobin (0.0-6.9) % THgb Methemoglobin (1.4-1.5) % Potassium (3.5-5.1) Temperature C POC O2 Flow Rate % Sodium (137-145) mmol/L Chloride (98-107) mmol/L Carbon Dioxide (22-30) mmol/L Anion Gap (5-15) MEQ/L BUN (7-17) mg/dL Creatinine (0.52-1.04) mg/dL Estimated GFR ML/MIN Glucose (74-106) mg/dL Lactic Acid (0.4-2.0) Calcium (8.4-10.2) mg/dL Total Bilirubin (0.2-1.3) mg/dL AST (14-36) U/L ALT (0-35) U/L Alkaline Phosphatase (38-126) U/L Troponin I < 0.012 (0.000-0.034) ng/mL Serum Total Protein (6.3-8.2) g/dL Albumin (3.5-5.0) g/dL Amylase (30-110) U/L Lipase (23-300) U/L Urine Color (YELLOW) Urine Appearance (CLEAR) Urine pH (5-6) Ur Specific [place] (1.005-1.025) Urine Protein (Negative) Urine Ketones (NEGATIVE) Urine Blood (0-5) Kade/ul Urine Nitrite (NEGATIVE) Urine Bilirubin (NEGATIVE) Urine Urobilinogen (0-1) mg/dL Ur Leukocyte Esterase (NEGATIVE) Urine WBC (Auto) (0-5) /HPF Urine RBC (Auto) (0-2) /HPF U Hyaline Cast (Auto) (0-2) /LPF U Epithel Cells (Auto) (FEW) /HPF Urine Bacteria (Auto) (NEGATIVE) /HPF Urine Mucus (Auto) (NEGATIVE) /HPF Urine Culture Reflexed (NO) Urine Glucose (NEGATIVE) mg/dL Stool Occult Blood POSITIVE A (NEGATIVE) Stl C. cayetanensis PCR NEGATIVE (NEGATIVE) Stl Adenov F 40/41 PCR NEGATIVE (NEGATIVE) Stool Astrovirus (PCR) NEGATIVE (NEGATIVE) Stool Cryptosporidium PCR NEGATIVE (NEGATIVE) Stool EPEC (PCR) NEGATIVE (NEGATIVE) Stool EAEC (PCR) NEGATIVE (NEGATIVE) Stl E. histolytica PCR NEGATIVE (NEGATIVE) Stl P. shigelloides PCR NEGATIVE (NEGATIVE) Stool Sapovirus (PCR) NEGATIVE (NEGATIVE) St Y.enterocolitica PCR NEGATIVE (NEGATIVE) Stool Vibrio (PCR) NEGATIVE (NEGATIVE) Stl Vibrio cholerae PCR NEGATIVE (NEGATIVE) Stl Norovirus GI/GII PCR NEGATIVE (NEGATIVE) Campylobacter (PCR) NEGATIVE (NEGATIVE) C. difficile Screen (NEGATIVE) C.difficile 027-NAP1-B1 (NEGATIVE) C. difficile (PCR) NEGATIVE (NEGATIVE) Enterotoxigenic E. coli NEGATIVE (NEGATIVE) E.coli Shiga Toxins NEGATIVE (NEGATIVE) Giardia lamblia NEGATIVE (NEGATIVE) Influenza Type A Ag (NEGATIVE) Influenza Type B Ag (NEGATIVE) RSV (PCR) (Negative) Rotavirus A (PCR) NEGATIVE (NEGATIVE) Salmonella (PCR) NEGATIVE (NEGATIVE) SARS-CoV-2 (PCR) (NEGATIVE) Shigella (PCR) NEGATIVE (NEGATIVE) 12/08/20 12/08/20 12/08/20 Range/Units 09:54 08:51 08:51 WBC (4.0-10.5) K/mm3 RBC (4.1-5.4) M/mm3 Hgb (12.0-16.0) gm/dl Hct (35-47) % MCV (78-100) fl MCH (26-32) pg MCHC (32-36) g/dl RDW (11.5-14.0) % Plt Count (150-450) K/mm3 MPV (7.5-11.0) fl Gran % (36.0-66.0) % Eos # (Auto) (0-0.5) Absolute Lymphs (auto) (1.0-4.6) Absolute Monos (auto) (0.0-1.3) Lymphocytes % (24.0-44.0) % Monocytes % (0.0-12.0) % Eosinophils % (0.00-5.0) % Basophils % (0.0-0.4) % Absolute Granulocytes (1.4-6.9) Basophils # (0-0.4) Puncture Site pCO2 (35-45) mmHg pO2 (75-100) mmHg Base Excess (-2.0-2.0) O2 Saturation (94-100) g/dF ABG pH (7.35-7.45) ABG HCO3 (22-28) ABG O2 Sat (Measured) (95-100) % A-a Gradient a/A Ratio Hemoglobin Carboxyhemoglobin (0.0-6.9) % THgb Methemoglobin (1.4-1.5) % Potassium 3.9 (3.5-5.1) Temperature C POC O2 Flow Rate % Sodium 132 L (137-145) mmol/L Chloride 96 L (98-107) mmol/L Carbon Dioxide 31 H (22-30) mmol/L Anion Gap 9.8 (5-15) MEQ/L BUN 3 L (7-17) mg/dL Creatinine 0.53 (0.52-1.04) mg/dL Estimated GFR > 60.0 ML/MIN Glucose 226 H (74-106) mg/dL Lactic Acid (0.4-2.0) Calcium 8.0 L (8.4-10.2) mg/dL Total Bilirubin 0.50 (0.2-1.3) mg/dL AST 21 (14-36) U/L ALT 11 (0-35) U/L Alkaline Phosphatase 102 (38-126) U/L Troponin I < 0.012 (0.000-0.034) ng/mL Serum Total Protein 6.4 (6.3-8.2) g/dL Albumin 2.8 L (3.5-5.0) g/dL Amylase 47 (30-110) U/L Lipase 370 H (23-300) U/L Urine Color YELLOW (YELLOW) Urine Appearance SLIGHTLY CLOUDY (CLEAR) Urine pH 6.0 (5-6) Ur Specific [place] 1.010 (1.005-1.025) Urine Protein 30 (Negative) Urine Ketones NEGATIVE (NEGATIVE) Urine Blood MODERATE (0-5) Kade/ul Urine Nitrite NEGATIVE (NEGATIVE) Urine Bilirubin NEGATIVE (NEGATIVE) Urine Urobilinogen NEGATIVE (0-1) mg/dL Ur Leukocyte Esterase SMALL (NEGATIVE) Urine WBC (Auto) 51-100 (0-5) /HPF Urine RBC (Auto) 11-15 (0-2) /HPF U Hyaline Cast (Auto) 3-5 (0-2) /LPF U Epithel Cells (Auto) RARE (FEW) /HPF Urine Bacteria (Auto) MODERATE (NEGATIVE) /HPF Urine Mucus (Auto) SLIGHT (NEGATIVE) /HPF Urine Culture Reflexed YES (NO) Urine Glucose NEGATIVE (NEGATIVE) mg/dL Stool Occult Blood (NEGATIVE) Stl C. cayetanensis PCR (NEGATIVE) Stl Adenov F 40/41 PCR (NEGATIVE) Stool Astrovirus (PCR) (NEGATIVE) Stool Cryptosporidium PCR (NEGATIVE) Stool EPEC (PCR) (NEGATIVE) Stool EAEC (PCR) (NEGATIVE) Stl E. histolytica PCR (NEGATIVE) Stl P. shigelloides PCR (NEGATIVE) Stool Sapovirus (PCR) (NEGATIVE) St Y.enterocolitica PCR (NEGATIVE) Stool Vibrio (PCR) (NEGATIVE) Stl Vibrio cholerae PCR (NEGATIVE) Stl Norovirus GI/GII PCR (NEGATIVE) Campylobacter (PCR) (NEGATIVE) C. difficile Screen (NEGATIVE) C.difficile 027-NAP1-B1 (NEGATIVE) C. difficile (PCR) (NEGATIVE) Enterotoxigenic E. coli (NEGATIVE) E.coli Shiga Toxins (NEGATIVE) Giardia lamblia (NEGATIVE) Influenza Type A Ag (NEGATIVE) Influenza Type B Ag (NEGATIVE) RSV (PCR) (Negative) Rotavirus A (PCR) (NEGATIVE) Salmonella (PCR) (NEGATIVE) SARS-CoV-2 (PCR) (NEGATIVE) Shigella (PCR) (NEGATIVE) 12/08/20 12/08/20 12/08/20 Range/Units 08:51 08:45 08:41 WBC 8.0 (4.0-10.5) K/mm3 RBC 3.42 L (4.1-5.4) M/mm3 Hgb 9.3 L (12.0-16.0) gm/dl Hct 29.8 L (35-47) % MCV 87.1 (78-100) fl MCH 27.2 (26-32) pg MCHC 31.2 L (32-36) g/dl RDW 14.7 H (11.5-14.0) % Plt Count 455 H (150-450) K/mm3 MPV 9.1 (7.5-11.0) fl Gran % 71.3 H (36.0-66.0) % Eos # (Auto) 0.03 (0-0.5) Absolute Lymphs (auto) 1.34 (1.0-4.6) Absolute Monos (auto) 0.89 (0.0-1.3) Lymphocytes % 16.8 L (24.0-44.0) % Monocytes % 11.2 (0.0-12.0) % Eosinophils % 0.4 (0.00-5.0) % Basophils % 0.3 (0.0-0.4) % Absolute Granulocytes 5.69 (1.4-6.9) Basophils # 0.02 (0-0.4) Puncture Site RIGHT BRACHIAL pCO2 40 (35-45) mmHg pO2 64 L (75-100) mmHg Base Excess 7.4 H (-2.0-2.0) O2 Saturation 92.3 L (94-100) g/dF ABG pH 7.50 H (7.35-7.45) ABG HCO3 31.2 H* (22-28) ABG O2 Sat (Measured) 95.0 (95-100) % A-a Gradient 36 a/A Ratio 0.64 Hemoglobin 10.5 Carboxyhemoglobin 1.8 (0.0-6.9) % THgb Methemoglobin 1.0 L (1.4-1.5) % Potassium 3.7 (3.5-5.1) Temperature 37.0 C POC O2 Flow Rate 21 % Sodium (137-145) mmol/L Chloride (98-107) mmol/L Carbon Dioxide (22-30) mmol/L Anion Gap (5-15) MEQ/L BUN (7-17) mg/dL Creatinine (0.52-1.04) mg/dL Estimated GFR ML/MIN Glucose (74-106) mg/dL Lactic Acid 0.7 (0.4-2.0) Calcium (8.4-10.2) mg/dL Total Bilirubin (0.2-1.3) mg/dL AST (14-36) U/L ALT (0-35) U/L Alkaline Phosphatase (38-126) U/L Troponin I (0.000-0.034) ng/mL Serum Total Protein (6.3-8.2) g/dL Albumin (3.5-5.0) g/dL Amylase (30-110) U/L Lipase (23-300) U/L Urine Color (YELLOW) Urine Appearance (CLEAR) Urine pH (5-6) Ur Specific [place] (1.005-1.025) Urine Protein (Negative) Urine Ketones (NEGATIVE) Urine Blood (0-5) Kade/ul Urine Nitrite (NEGATIVE) Urine Bilirubin (NEGATIVE) Urine Urobilinogen (0-1) mg/dL Ur Leukocyte Esterase (NEGATIVE) Urine WBC (Auto) (0-5) /HPF Urine RBC (Auto) (0-2) /HPF U Hyaline Cast (Auto) (0-2) /LPF U Epithel Cells (Auto) (FEW) /HPF Urine Bacteria (Auto) (NEGATIVE) /HPF Urine Mucus (Auto) (NEGATIVE) /HPF Urine Culture Reflexed (NO) Urine Glucose (NEGATIVE) mg/dL Stool Occult Blood (NEGATIVE) Stl C. cayetanensis PCR (NEGATIVE) Stl Adenov F 40/41 PCR (NEGATIVE) Stool Astrovirus (PCR) (NEGATIVE) Stool Cryptosporidium PCR (NEGATIVE) Stool EPEC (PCR) (NEGATIVE) Stool EAEC (PCR) (NEGATIVE) Stl E. histolytica PCR (NEGATIVE) Stl P. shigelloides PCR (NEGATIVE) Stool Sapovirus (PCR) (NEGATIVE) St Y.enterocolitica PCR (NEGATIVE) Stool Vibrio (PCR) (NEGATIVE) Stl Vibrio cholerae PCR (NEGATIVE) Stl Norovirus GI/GII PCR (NEGATIVE) Campylobacter (PCR) (NEGATIVE) C. difficile Screen (NEGATIVE) C.difficile 027-NAP1-B1 (NEGATIVE) C. difficile (PCR) (NEGATIVE) Enterotoxigenic E. coli (NEGATIVE) E.coli Shiga Toxins (NEGATIVE) Giardia lamblia (NEGATIVE) Influenza Type A Ag (NEGATIVE) Influenza Type B Ag (NEGATIVE) RSV (PCR) (Negative) Rotavirus A (PCR) (NEGATIVE) Salmonella (PCR) (NEGATIVE) SARS-CoV-2 (PCR) (NEGATIVE) Shigella (PCR) (NEGATIVE) - Progress Progress: improved Progress Note: 12/08/20 14:[address] Zhang 12/08/20 16:17 Dr. Zhang later called and stated that she talked to Dr. Espino who thought that pt has UC and would benefit from a transfer to a larger facility where a colonoscopy can be done. 12/08/20 17:[address] Garcia at [facility] 12/08/20 19:16 Pt stable when care assumed by ambulance crew 12/08/20 19:18 1L NS bolus/4mg IV Zofran 12/08/20 19:18 1.25mg IV Droperidol Discussed with : Hermann Counseled pt/family regarding: lab results, diagnosis, rad results - Departure Departure Disposition: Observation Clinical Impression: UTI (urinary tract infection), Colitis Condition: Stable Critical Care Time: No Referrals: MILO ESPINO MD [Primary Care Provider] -
[2020-12-08 09:26] LABS: ALBUMIN 2.8 g/dL (3.5-5.0); ALKALINE PHOSPHATASE 102 U/L (38-126); AMYLASE 47 U/L (30-110); ANION GAP 9.8 MEQ/L (5-15); BLOOD UREA NITROGEN 3 mg/dL (7-17); CHLORIDE 96 mmol/L (98-107); Carbon Dioxide 31 mmol/L (22-30); Creatinine 1 0.53 mg/dL (0.52-1.04); EST GLOMERULAR FILTRATION RATE > 60.0 ML/MIN; Glucose 226 mg/dL (74-106); LIPASE 370 U/L (23-300); Potassium 3.9 mmol/L (3.5-5.1); SGOT/AST 21 U/L (14-36); SGPT/ALT 11 U/L (0-35); SODIUM 132 mmol/L (137-145); Total Protein 6.4 g/dL (6.3-8.2)
[2020-12-08 10:18] LABS: Appearance SLIGHTLY CLOUDY (CLEAR); Bacteria MODERATE /HPF (NEGATIVE); Bilirubin NEGATIVE (NEGATIVE); Blood MODERATE Ery/ul (0-5); Epithelial Cells RARE /HPF (FEW); Glucose NEGATIVE (NEGATIVE); Ketones NEGATIVE (NEGATIVE); Leukocyte Esterase SMALL (NEGATIVE); Mucus SLIGHT /HPF (NEGATIVE); Nitrite NEGATIVE (NEGATIVE); Protein,Urine Dip 30 (Negative); Urobilinogen NEGATIVE mg/dL (0-1); WBC 51-100 /HPF (0-5)
--- NOTE | 2020-12-08 11:54 | XRAY ---
Indication: Short of breath, abdomen pain, nausea, and diarrhea. Multiple contiguous axial images obtained through the chest using 80 cc Isovue 370 contrast. Comparison: None. Lungs demonstrate minimal right base dependent atelectasis. No suspicious pulmonary mass/nodule, infiltrate, or effusion. Incidental right hemidiaphragm elevation. Heart is not enlarged. Aorta is normal in course and caliber. No pathologic mediastinal/hilar lymphadenopathy. Bony thorax intact with minimal degenerative changes throughout the spine. CT abdomen/pelvis reported separately. Impression: Minimal right lung base dependent atelectasis and right hemidiaphragm elevation. Remaining CT chest with contrast exam is negative.
--- NOTE | 2020-12-08 11:58 | XRAY ---
Indication: Abdomen pain, nausea, diarrhea. Multiple contiguous axial images obtained through the abdomen and pelvis using 80 cc Isovue 370 contrast. Comparison: November 14, 2020. CT chest reported separately. Noncontrasted stomach and bowel loops remain nonobstructed with normal appendix. Colon again demonstrates mild diffuse wall thickening with minimal stranding favoring colitis. No free fluid/air. Previous tiny mesenteric nodes appear smaller today. Remaining liver, gallbladder, pancreas, spleen, adrenal glands, kidneys, ureters, bladder, and uterus appear unremarkable. Stable minimal aortoiliac calcifications. No AAA or pathologic retroperitoneal lymphadenopathy. Impression: 1. Continued diffuse colitis. No complications. 2. Remaining CT abdomen/pelvis with contrast exam is negative.
[2020-12-08 13:27] LABS: 027 TOX PROD PRESUMPTIVE NEGATIVE (NEGATIVE); TOXIGENIC C. DIFF ORG NEGATIVE (NEGATIVE)
[2020-12-08 13:56] LABS: Adenovirus F 40/41 NEGATIVE (NEGATIVE); Astrovirus NEGATIVE (NEGATIVE); C. Difficile Organism NEGATIVE (NEGATIVE); Campylobacter NEGATIVE (NEGATIVE); Cryptosporidium NEGATIVE (NEGATIVE); Cyclospora cayentanensis NEGATIVE (NEGATIVE); Entamoeaba histolytica NEGATIVE (NEGATIVE); Enteroaggregative E.coli NEGATIVE (NEGATIVE); Enteropathogenic E.coli NEGATIVE (NEGATIVE); Enterotoxigenic E.coli NEGATIVE (NEGATIVE); Giardia lamblia NEGATIVE (NEGATIVE); Norovirus GI/GII NEGATIVE (NEGATIVE); Plesiomonas shigelloides NEGATIVE (NEGATIVE); Rotavirus A NEGATIVE (NEGATIVE); Salmonella NEGATIVE (NEGATIVE); Sapovirus NEGATIVE (NEGATIVE); Shiga-like toxin prod.E.coli NEGATIVE (NEGATIVE); Vibrio NEGATIVE (NEGATIVE); Vibrio cholerae NEGATIVE (NEGATIVE); Yersinia enterocolitica NEGATIVE (NEGATIVE)
[2020-12-08] MEDS ORDERED: Zofran 4 MG/2 ML VIAL IV PRN (14:25)
[2020-12-08] MEDS ORDERED: HUMALOG SQ PRN (14:25)
[2020-12-08] MEDS ORDERED: Hydromorphone 1 mg/ml Injection IV PRN (14:25)
[2020-12-08] MEDS ORDERED: Sodium Chloride 0.9% 1000 ML 1,000 ML IV SCH (14:30)
[2020-12-08 15:31] VITALS: BP 123/69; PULSE 114
[2020-12-08 15:48] LABS: INFLUENZA A NEGATIVE (NEGATIVE); INFLUENZA B NEGATIVE (NEGATIVE); RESPIRATORY SYNCTIAL VIRUS NEGATIVE (Negative)
[2020-12-08 16:19] VITALS: O2SAT 94
[2020-12-08] MEDS ORDERED: PHENERGAN IV ONE (17:27)
[2020-12-08] MEDS ORDERED: SODIUM CHLORIDE 0.9% IV ONE (17:27)
[2020-12-08] MEDS ORDERED: Inapsine 5 MG/2 ML IV ONE (17:28)
[2020-12-08] MEDS ORDERED: Sodium Chloride 0.9% 1000 ML 1,000 ML ONE (17:36)
[2020-12-08] MEDS ORDERED: Inapsine 5 MG/2 ML ONE (17:36)
[2020-12-09] MEDS ORDERED: PROTONIX 40 MG IV IV SCH (10:00)
== END 2020-12-08 19:13 | disposition short-term general hospital (02) ==
LOC: ED 08:36
DX: N39.0 Urinary tract infection, site not specified (principal); K52.9 Noninfective gastroenteritis and colitis, unspecified
CPT/HCPCS: 0097U; 0241U; 36000; 36415; 36600; 71260; 74177; 80053; 81001; 82150; 82274; 82375; 82803; 83605; 83690; 84484; 85025; 87040; 87086; 87493; 93005; 96360; 96361; 96374; 99285; 96375; G0328

== ENCOUNTER 2022-12-05 08:04 | Emergency (ER) | payer OTHER ==
--- NOTE | 2022-12-05 08:15 | ERPHSYRPT ---
- History of Present Illness Time Seen by Provider: 12/05/22 08:15 Source: patient Exam Limitations: no limitations Physician History: This is a 47-year-old white female patient of Dr. Espino who has had a history of DVT in her lower extremities in the past and presents with swelling and tenderness of the right forearm. She is concerned about a DVT. She noticed some discomfort and swelling that was mild but present 5 days ago. In the last 5 days the symptoms have worsened and there is some mild redness present. She has not had a fever. She is treated for a DVT in her lower extremities 2 years ago and was on anticoagulation therapy for approximately 4 months. She is no longer on anticoagulation therapy. She has no chest pain and she is not short of breath. She has not had any injury to the right upper extremity. Occurred: days ago (5) Method of Injury: other (No injury) Quality: aching (Mild right upper extremity) Severity of Pain-Max: mild Severity of Pain-Current: mild Extremities Pain Location: forearm: right Modifying Factors: Improves With: nothing Associated Symptoms: none Allergies/Adverse Reactions: latex Allergy (Intermediate, Verified 12/05/22 08:10) Rash Hx Tetanus, Diphtheria Vaccination/Date Given: No Hx Influenza Vaccination/Date Given: Yes Hx Pneumococcal Vaccination/Date Given: No Travel Risk - International Travel Have you traveled outside of the country in past 3 weeks: No - Coronavirus Screening Are you exhibiting any of the following symptoms?: No Close contact with a COVID-19 positive Pt in past 14-21 Days: No - Vaccine Status Have you recieved a Covid-19 vaccination: No - Review of Systems Constitutional: No Symptoms Eyes: No Symptoms Ears, Nose, & Throat: No Symptoms Respiratory: No Symptoms Cardiac: No Symptoms Abdominal/Gastrointestinal: No Symptoms Genitourinary Symptoms: No Symptoms Musculoskeletal: Other (Right forearm swelling tenderness mild redness) Skin: Other (See musculoskeletal section) Neurological: No Symptoms Psychological: No Symptoms Endocrine: No Symptoms Hematologic/Lymphatic: No Symptoms Immunological/Allergic: No Symptoms All Other Systems: Reviewed and Negative - Past Medical History Pertinent Past Medical History: Yes Neurological History: No Pertinent History ENT History: No Pertinent History Cardiac History: Hypertension Respiratory History: Other Endocrine Medical History: Diabetes Type II, Hypothyroidism Musculoskeletal History: Osteoarthritis, Other GI Medical History: Hemorrhoids History: No Pertinent History Psycho-Social History: No Pertinent History Female Reproductive Disorders: No Pertinent History Other Medical History: PATIENT REPORTS 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 HX OF CROHN'S DISEASE WITH COLECTOMY WITH PLACEMENT OF ILEOSTOMY 03/10. STATES WAS IN THE HOSPITAL FOR EXTENDED PERIOD OF TIME DUE TO WEIGHT LOSS (TOTAL OF 75#) LAST YEAR AND HAS BEEN WEAK SINCE CROHN'S DX AND SURGERY. - Past Surgical History Past Surgical History: Yes Neuro Surgical History: No Pertinent History Cardiac: No Pertinent History Respiratory: No Pertinent History Gastrointestinal: No Pertinent History Genitourinary: No Pertinent History Musculoskeletal: No Pertinent History Female Surgical History: Section Other Surgical History: I & D labial abcess - Social History Smoking Status: Former smoker How long have you smoked: 14 Exposure to second hand smoke: No Drug Use: none Patient Lives Alone: No Significant Family History: no pertinent family hx - Nursing Vital Signs Nursing Vital Signs: Initial Vital Signs Temperature 97.8 F 12/05/22 08:13 Pulse Rate 94 H 12/05/22 08:13 Respiratory Rate 18 12/05/22 08:13 Blood Pressure 164/75 12/05/22 08:13 O2 Sat by Pulse Oximetry 99 12/05/22 08:13 Pain Scale Pain Intensity 3 - Physical Exam General Appearance: no apparent distress, alert, anxiety, obese Eyes, Ears, Nose, Throat Exam: normal ENT inspection, moist mucous membranes Neck Exam: normal inspection, non-tender, supple, full range of motion Cardiovascular/Respiratory Exam: chest non-tender, no respiratory distress Abdominal Exam: non-tender Back Exam: normal inspection, normal range of motion, No CVA tenderness, No vertebral tenderness Shoulder Exam: normal inspection, non-tender, no evidence of injury, normal ROM Elbow/Forearm Exam: no evidence of injury, normal ROM, soft tissue tenderness, swelling Wrist Exam: normal inspection, non-tender, no evidence of injury, normal ROM Hand Exam: normal inspection, non-tender, no evidence of injury, normal ROM Neuro/Tendon Exam: normal sensation, normal motor functions, normal tendon functions, responds to pain, no evidence tendon injury Mental Status Exam: alert, oriented x 3, cooperative Skin Exam: warm, dry, other (Mild redness.? Phlebitis) SpO2 Interpretation: normal O2 Delivery: Room Air - Course Nursing assessment & vital signs reviewed: Yes Ordered Tests: Active Orders 24 hr Category Date Time Status VENOUS UNILAT/LIMITED EXTREMIT [US] Stat Exams 12/05/22 08:34 Taken Medication Summary Discontinued Medications Generic Name Dose Route Start Last Admin Trade Name Thu PRN Reason Stop Dose Admin Enoxaparin Sodium 120 mg 12/05/22 09:19 Enoxaparin Sodium 120 Mg/0.8 Ml Syringe SQ 12/05/22 09:20 STAT STA - Progress Progress: unchanged Progress Note: 12/05/22 09:24 The fitness technician Magui performed the test and there is evidence of a DVT in the patient's right forearm. I spoke with Dr. Espino and we agree that the patient can be treated as an outpatient. We will provide the patient with Lovenox 120 mg subcutaneously now and then start the patient on Eliquis as an outpatient from the emergency department. This patient's medical issue is 1 of moderate complexity. The level of complexity and the work-up performed is based on the review of the patient's past medical history, review of the patient's medication list, review of the patient's drug allergies, history of present illness and physical findings on examination. The work-up included venous ultrasound of the right upper extremity. The results were reviewed by me. I did discuss with the patient's primary care physician, Dr. Espino. We are providing her with Lovenox subcutaneously here in the emergency department followed by outpatient Scot. Patient will follow-up with Dr. Espino in his office. She will call the office today to make arranges for follow-up. Discussed with : Siria Counseled pt/family regarding: diagnosis, need for follow-up, rad results Medical Desision Making - Discussion of managment Reviewed:: Test results Agreed on:: Treatment plan, need for follow-up - Diagnostic Testing Radiological Interpretation: Reviewed by me, Teleradiologist Report - Risk of complications The pt has a mod risk of morbidity or mortality based on: Need for prescription drug management - Departure Departure Disposition: Home Clinical Impression: Deep vein thrombosis (DVT) of right upper extremity Condition: Stable Critical Care Time: No Referrals: MILO ESPINO MD [Primary Care Provider] - Follow up/PCP as directed Additional Instructions: Take your medication as prescribed. Call Dr. Espino's office today to make arrange for follow-up appointment to be seen within the next 5 days. Take your Eliquis medication as prescribed. Continue your other medication as prescribed. Prescriptions: Apixaban [Eliquis] 10 mg PO BID #28 tablet
[2022-12-05] MEDS ORDERED: ENOXAPARIN SODIUM SQ STA (09:19)
[2022-12-05 09:33] VITALS: BP 134/80; PULSE 66; O2SAT 93
--- NOTE | 2022-12-05 09:33 | XRAY ---
Indication: Pain. Two-dimensional sonogram and color Doppler imaging of the major venous vessels of the right upper extremity performed. Comparison: None Right basilic vein demonstrates nonoccluding thrombus. Remaining visualized jugular, subclavian, axillary, brachial, median cubital, cephalic, radial, and ulnar veins are negative for venous thrombosis. Patent veins demonstrate normal venous waveforms. Impression: Nonoccluding thrombus basilic vein.
[2022-12-05] MEDS ORDERED: ENOXAPARIN SODIUM SQ ONE (09:34)
== END 2022-12-05 09:50 | disposition home or self-care (01) ==
LOC: ED 08:04
DX: I82.621 Acute embolism and thrombosis of deep veins of right upper extremity (principal); M79.631 Pain in right forearm; I10 Essential (primary) hypertension; E11.9 Type 2 diabetes mellitus without complications; Z79.01 Long term (current) use of anticoagulants; Z28.310 Unvaccinated for COVID-19
CPT/HCPCS: 93971; 96372; 99282; J1650

== ENCOUNTER 2023-11-14 23:48 | Emergency (ER) | payer MEDICARE, OTHER ==
[2023-11-15 00:24] VITALS: TEMP 96.8
--- NOTE | 2023-11-15 00:42 | ERPHSYRPT ---
- History of Present Illness Time Seen by Provider: 11/15/23 00:20 Source: patient Exam Limitations: no limitations Patient Subjective Stated Complaint: pt states she thinks she is in DKA, see above treatments prior to arrival. complaint of SIDHU rated 2/10, described as ache started at approx 2100 and location was top of head and occipital area. slightly nauseated without vomiting and complaint of intermittent feeling lips numb. Triage Nursing Assessment: pt ambulated to room 7 independently with slow steady gait after standing on scale for weight acquisition. pt is alert and oriented times three, able to speak in complete sentences, able to move all extremities, and with resp even and unlabored. abd soft, obese, nontender to palpation, non distended. right upper quad ileostomy in place with appliance in place and CDI with in bag. no edema or JVD noted. heart sounds present and regular. anterior lung sounds clear throughout. bilat radial and pedal pulses palpable. denies cp, vomiting, lightheadedness, dizziness, blood in urine or stoma excrement, sob, or difficulty breathing. Physician History: 48-year-old female presents to our ED requesting to be checked for possible DKA. Patient states that her insulin pump transiently malfunctioned. Patient has a slight headache slight nausea and feels some lip numbness which is what she feels when her sugars run high. Patient has history of Crohn's disease she has a ileostomy. No other complaints. No chest pain or shortness of breath. No diaphoresis. No rash. No weakness. Significant other at bedside. They voiced no other complaints or concerns at this time. Portions of this note were created with voice recognition technology. There may be grammatical, spelling, punctuation or sound alike errors Timing/Duration: today Severity: mild Associated Symptoms: denies symptoms Allergies/Adverse Reactions: amoxicillin Allergy (Intermediate, Verified 11/14/23 23:56) Nausea and Vomiting latex Allergy (Intermediate, Verified 11/14/23 23:56) Rash Home Medications: Carvedilol 3.125 mg [Coreg 3.125 MG] 3.125 mg PO DINNER 11/15/23 [History] Levothyroxine Sodium [Synthroid] 125 mcg PO DINNER 11/15/23 [History] Omeprazole 40 mg PO DINNER 11/15/23 [History] Hx Tetanus, Diphtheria Vaccination/Date Given: No Hx Influenza Vaccination/Date Given: Yes Hx Pneumococcal Vaccination/Date Given: No Immunizations Up to Date: No Travel Risk - International Travel Have you traveled outside of the country in past 3 weeks: No - Emerging Infectious Disease Are you exhibiting symptoms associated with any current EIDs: No - Review of Systems Constitutional: No Symptoms, No Fever, No Chills Eyes: No Symptoms Ears, Nose, & Throat: No Symptoms Respiratory: No Symptoms, No Cough, No Dyspnea Cardiac: No Symptoms, No Chest Pain, No Edema, No Syncope Abdominal/Gastrointestinal: No Symptoms, No Abdominal Pain, No Nausea, No Vomiting, No Diarrhea Genitourinary Symptoms: No Symptoms, No Dysuria Musculoskeletal: No Symptoms, No Back Pain, No Neck Pain Skin: No Symptoms, No Rash Neurological: No Symptoms, No Dizziness, No Focal Weakness, No Sensory Changes Psychological: No Symptoms Endocrine: No Symptoms Hematologic/Lymphatic: No Symptoms Immunological/Allergic: No Symptoms All Other Systems: Reviewed and Negative - Past Medical History Pertinent Past Medical History: Yes Neurological History: No Pertinent History ENT History: No Pertinent History Cardiac History: Hypertension Respiratory History: Other Endocrine Medical History: Diabetes Type II, Hypothyroidism Musculoskeletal History: Osteoarthritis, Other GI Medical History: Crohns Disease, Hemorrhoids History: No Pertinent History Psycho-Social History: No Pertinent History Female Reproductive Disorders: No Pertinent History Other Medical History: PATIENT REPORTS 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 HX OF CROHN'S DISEASE WITH COLECTOMY WITH PLACEMENT OF ILEOSTOMY 03/10. STATES WAS IN THE HOSPITAL FOR EXTENDED PERIOD OF TIME DUE TO WEIGHT LOSS (TOTAL OF 75#) LAST YEAR AND HAS BEEN WEAK SINCE CROHN'S DX AND SURGERY. - Past Surgical History Past Surgical History: Yes Neuro Surgical History: No Pertinent History Cardiac: No Pertinent History Respiratory: No Pertinent History Gastrointestinal: Other Genitourinary: No Pertinent History Musculoskeletal: No Pertinent History Female Surgical History: Section Other Surgical History: I & D labial abcess/ total colectomy with ileostomy Significant Family History: no pertinent family hx - Female History Hx Last Menstrual Period: 11/08/23 Hx Now: No - Social History Smoking Status: Former smoker How long have you smoked: 14 Exposure to second hand smoke: No Drug Use: none Patient Lives Alone: No - Nursing Vital Signs Nursing Vital Signs: Initial Vital Signs Temperature 96.8 F 11/14/23 23:57 Pulse Rate 104 H 11/14/23 23:57 Respiratory Rate 24 11/14/23 23:57 Blood Pressure 186/97 11/14/23 23:57 O2 Sat by Pulse Oximetry 97 11/14/23 23:57 Pain Scale Pain Intensity 0 - Physical Exam General Appearance: no apparent distress, alert Eye Exam: PERRL/EOMI, eyes nml inspection Ears, Nose, Throat Exam: normal ENT inspection, TMs normal, pharynx normal, moist mucous membranes Neck Exam: normal inspection, non-tender, supple, full range of motion Respiratory Exam: normal breath sounds, lungs clear, No respiratory distress Cardiovascular Exam: regular rate/rhythm, normal heart sounds, normal peripheral pulses Gastrointestinal/Abdomen Exam: soft, normal bowel sounds, other (Colostomy), No tenderness, No mass Back Exam: normal inspection, normal range of motion, No CVA tenderness, No vertebral tenderness Extremity Exam: normal inspection, normal range of motion, pelvis stable Neurologic Exam: alert, oriented x 3, cooperative, normal mood/affect, nml cerebellar function, nml station & gait, sensation nml, No motor deficits Skin Exam: normal color, warm, dry, No rash Lymphatic Exam: No adenopathy SpO2 Interpretation: normal SpO2: 97 O2 Delivery: Room Air - Course Nursing assessment & vital signs reviewed: Yes EKG Interpreted by Me: RATE (101), Sinus Tach, Left [place]way Deviation, NORMAL INT ERVALS, NORMAL QRS Ordered Tests: Active Orders 24 hr Category Date Time Status Sueding Machine Tender STAT Care 11/15/23 00:28 Active EKG-ER Only STAT Care 11/15/23 00:28 Active IV Insertion STAT Care 11/15/23 00:28 Active Pulse Oximetry (ED) STAT Care 11/15/23 00:28 Active BMP Stat Lab 11/15/23 03:30 Completed CBC W DIFF Stat Lab 11/15/23 00:42 Completed CMP Stat Lab 11/15/23 00:42 Completed CULTURE,URINE Stat Lab 11/15/23 00:45 Received POCT GLUCOSE Stat Lab 11/15/23 00:22 Completed UA W/RFX UR CULTURE Stat Lab 11/15/23 00:45 Completed Medication Summary Discontinued Medications Generic Name Dose Route Start Last Admin Trade Name Freq PRN Reason Stop Dose Admin Lactated Ringer's 1,000 mls @ 999 mls/hr 11/15/23 01:09 11/15/23 04:23 Lactated Ringers IV 11/15/23 02:09 Infused .Q1H1M ONE Infusion Lactated Ringer's Confirm 11/15/23 01:11 Lactated Ringers Administered 11/15/23 01:12 Dose 1,000 mls @ ud IV .STK-MED ONE Lactated Ringer's 1,000 mls @ 999 mls/hr 11/15/23 02:16 11/15/23 04:24 Lactated Ringers IV 11/15/23 03:16 999 mls/hr .Q1H1M ONE Infusion Lactated Ringer's Confirm 11/15/23 02:46 Lactated Ringers Administered 11/15/23 02:47 Dose 1,000 mls @ ud IV .STK-MED ONE Lab/Rad Data: Laboratory Result Diagrams 11/15/23 00:42 11/15/23 03:30 Laboratory Results 11/15/23 11/15/23 11/15/23 Range/Units 03:30 00:45 00:42 WBC (4.0-10.5) x10^3/uL RBC (4.1-5.4) x10^6/uL Hgb (12.0-16.0) g/dL Hct (35-47) % MCV (78-100) fL MCH (26-32) pg MCHC (32-36) g/dL RDW (11.5-14.0) % Plt Count (150-450) x10^3/uL MPV (7.5-11.0) fL Gran % (36.0-66.0) % Immature Gran % (Auto) (0.00-0.4) % Nucleat RBC Rel Count (0.00-0.1) % Eos # (Auto) (0-0.5) x10^3/uL Immature Gran # (Auto) (0.00-0.03) x10^3u/L Absolute Lymphs (auto) (1.0-4.6) x10^3/uL Absolute Monos (auto) (0.0-1.3) x10^3/uL Absolute Nucleated RBC (0.00-0.01) x10^3u/L Lymphocytes % (24.0-44.0) % Monocytes % (0.0-12.0) % Eosinophils % (0.00-5.0) % Basophils % (0.0-0.4) % Absolute Granulocytes (1.4-6.9) x10^3/uL Basophils # (0-0.4) x10^3/uL Sodium 133 L 132 L (135-145) mmol/L Potassium 4.3 4.5 (3.5-5.1) mmol/L Chloride 103 101 (98-107) mmol/L Carbon Dioxide 21 L 17 L (22-30) mmol/L Anion Gap 12.5 19.1 H (5-15) MEQ/L BUN 18 H 22 H (7-17) mg/dL Creatinine 0.62 0.76 (0.52-1.04) mg/dL Estimated GFR 111.2 97.8 ML/MIN Glucose 285 H 487 H (74-106) mg/dL POC Glucometer (74 to 106) mg/dL Calcium 8.9 9.3 (8.4-10.2) mg/dL Total Bilirubin 0.80 (0.2-1.3) mg/dL AST 25 (14-36) U/L ALT 25 (0-35) U/L Alkaline Phosphatase 101 (38-126) U/L Serum Total Protein 7.8 (6.3-8.2) g/dL Albumin 4.0 (3.5-5.0) g/dL Urine Color Yellow (Yellow) Urine Appearance Clear (Clear) Urine pH 5.5 (4.6-8.0) Ur Specific Loring >=1.030 A (1.005-1.030) Urine Protein Negative (Negative) Urine Glucose (UA) >=1000 A (Negative) mg/dL Urine Ketones 80 A (Negative) Urine Blood Negative (Negative) Urine Nitrite Negative (Negative) Urine Bilirubin Negative (Negative) Urine Urobilinogen 0.2 (0.2) mg/dL Ur Leukocyte Esterase Negative (Negative) U Hyaline Cast (Auto) NONE SEEN (0-2) /LPF Urine Microscopic RBC 0-2 (0-5) /HPF Urine Microscopic WBC 11-20 A (0-5) /HPF Ur Epithelial Cells None Seen (None Seen) /HPF Urine Bacteria None Seen (None Seen) /HPF Urine Culture Reflexed YES (NO) 11/15/23 11/15/23 Range/Units 00:42 00:22 WBC 8.5 (4.0-10.5) x10^3/uL RBC 4.61 (4.1-5.4) x10^6/uL Hgb 13.0 (12.0-16.0) g/dL Hct 39.8 (35-47) % MCV 86.3 (78-100) fL MCH 28.2 (26-32) pg MCHC 32.7 (32-36) g/dL RDW 12.6 (11.5-14.0) % Plt Count 258 (150-450) x10^3/uL MPV 10.6 (7.5-11.0) fL Gran % 73.0 H (36.0-66.0) % Immature Gran % (Auto) 0.2 (0.00-0.4) % Nucleat RBC Rel Count 0.0 (0.00-0.1) % Eos # (Auto) 0.22 (0-0.5) x10^3/uL Immature Gran # (Auto) 0.02 (0.00-0.03) x10^3u/L Absolute Lymphs (auto) 1.61 (1.0-4.6) x10^3/uL Absolute Monos (auto) 0.37 (0.0-1.3) x10^3/uL Absolute Nucleated RBC 0.00 (0.00-0.01) x10^3u/L Lymphocytes % 19.0 L (24.0-44.0) % Monocytes % 4.4 (0.0-12.0) % Eosinophils % 2.6 (0.00-5.0) % Basophils % 0.8 (0.0-0.4) % Absolute Granulocytes 6.20 (1.4-6.9) x10^3/uL Basophils # 0.07 (0-0.4) x10^3/uL Sodium (135-145) mmol/L Potassium (3.5-5.1) mmol/L Chloride (98-107) mmol/L Carbon Dioxide (22-30) mmol/L Anion Gap (5-15) MEQ/L BUN (7-17) mg/dL Creatinine (0.52-1.04) mg/dL Estimated GFR ML/MIN Glucose (74-106) mg/dL POC Glucometer 448 H (74 to 106) mg/dL Calcium (8.4-10.2) mg/dL Total Bilirubin (0.2-1.3) mg/dL AST (14-36) U/L ALT (0-35) U/L Alkaline Phosphatase (38-126) U/L Serum Total Protein (6.3-8.2) g/dL Albumin (3.5-5.0) g/dL Urine Color (Yellow) Urine Appearance (Clear) Urine pH (4.6-8.0) Ur Specific Loring (1.005-1.030) Urine Protein (Negative) Urine Glucose (UA) (Negative) mg/dL Urine Ketones (Negative) Urine Blood (Negative) Urine Nitrite (Negative) Urine Bilirubin (Negative) Urine Urobilinogen (0.2) mg/dL Ur Leukocyte Esterase (Negative) U Hyaline Cast (Auto) (0-2) /LPF Urine Microscopic RBC (0-5) /HPF Urine Microscopic WBC (0-5) /HPF Ur Epithelial Cells (None Seen) /HPF Urine Bacteria (None Seen) /HPF Urine Culture Reflexed (NO) - Progress Progress: improved Progress Note: 48-year-old female presents to our ED for evaluation of possible DKA. Patient reported a transiently dysfunctional insulin pump. Patient insulin pump dysfunction resolved per patient. Patient self administered 11 units of insulin. Physical exam unremarkable. Laboratory workup completed. Patient observed to be slight DKA. Patient had an anion gap acidosis with ketones in urine. Patient was observed to be dehydrated. A urinalysis revealed a slight urinary tract infection. Patient received 2.5 L of lactated ringer. Repeat glucose was 285. Anion gap 12.5. Patient reassessed. She is well vital st able. Patient and she is ready for discharge. Prescription for Macrobid forwarded to patient's pharmacy. Patient agrees to follow-up with her primary care doctor within 48 hours for evaluation. Portions of this note were created with voice recognition technology. There may be grammatical, spelling, punctuation or sound alike errors Complexity of problem addressed is high. Patient was in DKA. No critical care time Complexity of data reviewed and analyzed is moderate. Test ordered test reviewed. Results analyzed and correlated clinically with history and physical exam. Risk of complication and or risk of morbidity/mortality of patient management is moderate. A prescription for Macrobid forwarded to patient's pharmacy. Vital stable. Time spent to discharge patient is approximately 20 minutes. Plan of care established for shared decision making. No social determinants of health present impede follow-up. Portions of this note were created with voice recognition technology. There may be grammatical, spelling, punctuation or sound alike errors 11/15/23 04:32 Counseled pt/family regarding: lab results, diagnosis, need for follow-up - Departure Departure Disposition: Home Clinical Impression: DKA (diabetic ketoacidosis), UTI (urinary tract infection), Glucosuria, Deh ydration, Complication of insulin pump, Ketonuria Condition: Stable Critical Care Time: No Referrals: MILO ESPINO MD [Primary Care Provider] - Follow up/PCP as directed Additional Instructions: Discharge/Care Plan JENELLE ESCOBAR STERLING was seen on 11/15/23 in the Emergency Room. The patient was counseled regarding Diagnosis,Lab results, Imaging studies, need for follow up and when to return to the Emergency Room. Prescriptions given: Discharge Note I have spoken with the patient and/or caregivers. I have explained the patient's condition, diagnosis and treatment plan based on the information available to me at this time. I have answered the patient's and/or caregiver's questions and addressed any concerns. The patient and/or caregivers have as good understanding of the patient's diagnosis, condition and treatment plan as can be expected at this point. The vital signs have been stable. The patient's condition is stable and appropriate for discharge from the emergency department. The patient will pursue further outpatient evaluation with the primary care physician or other designated or consulting physician as outlined in the discharge instructions. The patient and/or caregivers are agreeable to this plan of care and follow-up instructions have been explained in detail. The patient and/or caregivers have received these instruction. The patient/and or caregivers are aware that any significant change in condition or worsening of symptoms should prompt an immediate return to this or the closest emergency department or call 911. Prescriptions: Nitrofurantoin Macro 100 mg [Macrobid 100MG Capsule] 100 mg PO BID 7 Days #14 cap
[2023-11-15 00:43] LABS: BASOPHIL % 0.8 % (0.0-0.4); Basophil (Absolute #) 0.07 x10^3/uL (0-0.4); Eosinophil % 2.6 % (0.00-5.0); Eosinophil (Absolute #) 0.22 x10^3/uL (0-0.5); Hematocrit 39.8 % (35-47); IMMATURE GRAN # 0.02 x10^3u/L (0.00-0.03); IMMATURE GRAN % 0.2 % (0.00-0.4); Lymphocyte (Absolute #) 1.61 x10^3/uL (1.0-4.6); Mean Cell Volume 86.3 fL (78-100); Mean Corpuscular Hemoglobin 28.2 pg (26-32); Mean Corpuscular Hgb Concent. 32.7 g/dL (32-36); Mean Platelet Volume 10.6 fL (7.5-11.0); Monocyte (Absolute #) 0.37 x10^3/uL (0.0-1.3); Monocytes % 4.4 % (0.0-12.0); Platelet Count 258 x10^3/uL (150-450); Red Blood Count 4.61 x10^6/uL (4.1-5.4); Red Cell Distribution Width 12.6 % (11.5-14.0); White Blood Count 8.5 x10^3/uL (4.0-10.5)
[2023-11-15 00:58] LABS: ANION GAP 19.1 MEQ/L (5-15); BILIRUBIN,TOTAL 0.8 mg/dL (0.2-1.3); Calcium 9.3 mg/dL (8.4-10.2); Creatinine 1 0.76 mg/dL (0.52-1.04); EST GLOMERULAR FILTRATION RATE 97.8 ML/MIN; Potassium 4.5 mmol/L (3.5-5.1); Total Protein 7.8 g/dL (6.3-8.2)
[2023-11-15] MEDS ORDERED: Lactated Ringers 1,000 ML IV ONE ×2 (01:11→02:46)
[2023-11-15] MEDS: Lactated Ringers 1,000 ML IV ONE ×2 (01:58→02:50)
[2023-11-15 02:22] LABS: ADD URINE CULTURE? YES (NO); Appearance Clear (Clear); Bacteria None Seen /HPF (None Seen); Bilirubin Negative (Negative); Blood Negative (Negative); Epithelial Cells None Seen /HPF (None Seen); Glucose, Urine >=1000 mg/dL (Negative); Hyaline Casts NONE SEEN /LPF (0-2); Ketones 80 (Negative); Leukocyte Esterase Negative (Negative); Nitrite Negative (Negative); Ph 5.5 (4.6-8.0); Protein,Urine Dip Negative (Negative); RBC 0-2 /HPF (0-5); Specific Gravity >=1.030 (1.005-1.030); Urobilinogen 0.2 mg/dL (0.2)
[2023-11-15 03:46] LABS: ANION GAP 12.5 MEQ/L (5-15); Calcium 8.9 mg/dL (8.4-10.2); Creatinine 1 0.62 mg/dL (0.52-1.04); EST GLOMERULAR FILTRATION RATE 111.2 ML/MIN; Potassium 4.3 mmol/L (3.5-5.1)
[2023-11-15 04:23] VITALS: BP 137/79; PULSE 89; RESP 16
[2023-11-15 04:31] VITALS: O2SAT 97
[2023-11-15] MEDS ORDERED: Macrobid 100MG Capsule ONE (04:35)
[2023-11-15] MEDS: Macrobid 100MG Capsule PO ONE (04:36)
== END 2023-11-15 04:49 | disposition home or self-care (01) ==
LOC: ED 23:48
DX: T85.9XXA Unspecified complication of internal prosthetic device, implant and graft, initial encounter (principal); E11.10 Type 2 diabetes mellitus with ketoacidosis without coma; N39.0 Urinary tract infection, site not specified; R81 Glycosuria; E86.0 Dehydration; R82.4 Acetonuria; R51.9 Headache, unspecified; R11.0 Nausea; I10 Essential (primary) hypertension; Z96.41 Presence of insulin pump (external) (internal); Z79.4 Long term (current) use of insulin; Z79.899 Other long term (current) drug therapy
CPT/HCPCS: 36000; 36415; 80048; 80053; 81001; 82947; 85025; 87086; 93005; 93041; 94760; 99284; A9270-GY

== ENCOUNTER 2024-03-23 17:11 | Emergency (ER) | payer MEDICARE, MEDICAID ==
--- NOTE | 2024-03-23 17:26 | ERPHSYRPT ---
- History of Present Illness Time Seen by Provider: 03/23/24 17:20 Historian: patient, family Exam Limitations: no limitations Physician History: Pt has crohns Dx with ileostomy but developed peristomal draining and abscess with erythema and tenderness. No N or V. No hx of trauma. remainder Abd nontender without peritoneal signs or masses - No abd pain. Normal mental status and neuro - no reported fever. Had scalp lesion resolved on AB and was given Ab last week for this but not resolving. discussed risks/benefits of testing/Tx with pt and family including CT abd, IV AB, IVF, Culture, CBC, CMP, lactate, boone, lipase, and they wish to proceed and these are ordered. Results discussed. We offered to customize the stomal covering and Tx and pt and family wish to try for transfer Dr. Valdovinos. at [facility] We will consult and discuss the stomal concerns and fistula concerns. Timing/Duration: day(s) Activities at Onset: none Quality: other (local pain only) Abdominal Pain Onset Location: other (None) Pain Radiation: no radiation Severity of Pain-Max: none Severity of Pain-Current: none Modifying Factors: Improves With: nothing Associated Symptoms: No diarrhea, No nausea, No vomiting Previous symptoms: recently seen, recently treated Allergies/Adverse Reactions: amoxicillin Allergy (Intermediate, Verified 03/23/24 17:18) Nausea and Vomiting latex Allergy (Intermediate, Verified 03/23/24 17:18) Rash Home Medications: Carvedilol 3.125 mg [Coreg 3.125 MG] 3.125 mg PO DINNER 11/15/23 [History] Levothyroxine Sodium [Synthroid] 150 mcg PO DINNER 11/15/23 [History] Omeprazole 40 mg PO DINNER 11/15/23 [History] Doxycycline Hyclate 100 mg [Vibramycin 100 MG] 100 mg PO BID 03/23/24 [History] Insulin Lispro [Humalog] 1 unit SQ UD 03/23/24 [History] Hx Tetanus, Diphtheria Vaccination/Date Given: No Hx Influenza Vaccination/Date Given: Yes Hx Pneumococcal Vaccination/Date Given: No Travel Risk - Emerging Infectious Disease Are you exhibiting symptoms associated with any current EIDs: No - Review of Systems Constitutional: No Fever, No Chills Eyes: No Symptoms Ears, Nose, & Throat: No Symptoms Respiratory: No Cough, No Dyspnea Cardiac: No Chest Pain, No Edema, No Syncope Abdominal/Gastrointestinal: No Abdominal Pain, No Nausea, No Vomiting, No Diarrhea Genitourinary Symptoms: No Dysuria Musculoskeletal: No Back Pain, No Neck Pain Skin: Skin Lesions, No Rash Neurological: No Dizziness, No Focal Weakness, No Sensory Changes Psychological: No Symptoms Endocrine: No Symptoms Hematologic/Lymphatic: No Symptoms Immunological/Allergic: No Symptoms All Other Systems: Reviewed and Negative - Past Medical History Pertinent Past Medical History: Yes Neurological History: No Pertinent History ENT History: No Pertinent History Cardiac History: Hypertension Respiratory History: Other Endocrine Medical History: Diabetes Type II, Hypothyroidism Musculoskeletal History: Osteoarthritis, Other GI Medical History: Crohns Disease, Hemorrhoids History: No Pertinent History Psycho-Social History: No Pertinent History Female Reproductive Disorders: No Pertinent History Other Medical History: PATIENT REPORTS 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 HX OF CROHN'S DISEASE WITH COLECTOMY WITH PLACEMENT OF ILEOSTOMY 03/10. STATES WAS IN THE HOSPITAL FOR EXTENDED PERIOD OF TIME DUE TO WEIGHT LOSS (TOTAL OF 75#) LAST YEAR AND HAS BEEN WEAK SINCE CROHN'S DX AND SURGERY. - Past Surgical History Past Surgical History: Yes Neuro Surgical History: No Pertinent History Cardiac: No Pertinent History Respiratory: No Pertinent History Gastrointestinal: Other Genitourinary: No Pertinent History Musculoskeletal: No Pertinent History Female Surgical History: Section Other Surgical History: I & D labial abcess/ total colectomy with ileostomy Significant Family History: no pertinent family hx - Social History Smoking Status: Former smoker How long have you smoked: 14 Exposure to second hand smoke: No Drug Use: none Patient Lives Alone: No - Social Determinants of Health Will the patient participate in the screening: Yes Do you worry about a steady place to live?: No In the past 12 months,have you had to go without utilities?: No Transportation Issues: No Has anyone in your support network made you feel unsafe?: No Have you or anyone in your house had to go without enough: Choose not to answer - Nursing Vital Signs Nursing Vital Signs: Initial Vital Signs Temperature 970 F 03/23/24 17:23 Pulse Rate 98 H 03/23/24 17:23 Respiratory Rate 18 03/23/24 17:23 Blood Pressure 180/80 03/23/24 17:23 O2 Sat by Pulse Oximetry 98 03/23/24 17:23 Pain Scale Pain Intensity 0 - Physical Exam General Appearance: no apparent distress, alert Eye Exam: PERRL/EOMI, eyes nml inspection Ears, Nose, Throat Exam: normal ENT inspection, pharynx normal, moist mucous membranes Neck Exam: normal inspection, non-tender, supple, full range of motion Respiratory Exam: normal breath sounds, lungs clear, No respiratory distress Cardiovascular Exam: regular rate/rhythm, normal heart sounds Gastrointestinal/Abdomen Exam: soft, No tenderness, No mass Pelvic Exam: deferred Rectal Exam: deferred Back Exam: normal inspection, normal range of motion, No CVA tenderness, No vertebral tenderness Extremity Exam: normal inspection, normal range of motion, pelvis stable Neurologic Exam: alert, oriented x 3, cooperative, normal mood/affect, nml cerebellar function, sensation nml, No motor deficits Skin Exam: normal color, warm, dry SpO2 Interpretation: normal O2 Delivery: Room Air - Course Nursing assessment & vital signs reviewed: Yes - CT Exams Abdomen/Pelvis CT Interpretation: Tele-radiologist Report, Normal Appendix, No appendicitis, Other (No abscess fluid or collections seen - dermal nodule seen corresponding to lesion) Ordered Tests: Active Orders 24 hr Category Date Time Status IV Insertion STAT Care 03/23/24 17:28 Active ABDOMEN AND PELVIS W/0 CONTRAS [CT] Stat Exams 03/23/24 17:29 Completed AMYLASE Stat Lab 03/23/24 17:30 Completed CBC W DIFF Stat Lab 03/23/24 17:30 Completed CMP Stat Lab 03/23/24 17:30 Completed CULTURE,WOUND Stat Lab 03/23/24 18:39 Received HCG QUALITATIVE, SERUM Stat Lab 03/23/24 17:30 Completed LIPASE Stat Lab 03/23/24 17:30 Completed Lactic Acid Stat Lab 03/23/24 17:28 Completed UA W/RFX UR CULTURE Stat Lab 03/23/24 23:52 Received Medication Summary Generic Name Dose Route Start Last Admin Trade Name Freq PRN Reason Stop Dose Admin Sodium Chloride 1,000 mls @ 100 mls/hr 03/23/24 17:30 03/23/24 17:46 Sodium Chloride 0.9% 1000 Ml IV 04/22/24 17:29 100 mls/hr .Q10H SHIMON Administration Discontinued Medications Generic Name Dose Route Start Last Admin Trade Name Freq PRN Reason Stop Dose Admin Ceftriaxone Sodium 1 gm in 100 mls @ 200 mls/hr 03/23/24 17:31 03/23/24 18:25 Rocephin 1 Gm / 100 Ml Nacl IV 03/23/24 18:00 Infused STAT ONE Infusion Metronidazole 500 mg in 100 mls @ 200 mls/hr 03/23/24 17:31 03/23/24 18:38 Flagyl 500 Mg Ivpb IV 03/23/24 18:00 200 ml/hr STAT STA 200 mls/hr Administration Ceftriaxone Sodium Confirm 03/23/24 17:43 Rocephin 1 Gm / 100 Ml Nacl Administered 03/23/24 17:44 Dose 1 gm in 100 mls @ ud IV .STK-MED ONE Metronidazole Confirm 03/23/24 18:36 Flagyl 500 Mg Ivpb Administered 03/23/24 18:37 Dose 500 mg in 100 mls @ ud IV .STK-MED ONE Lab/Rad Data: Laboratory Result Diagrams 03/23/24 17:30 03/23/24 17:30 Laboratory Results 03/23/24 03/23/24 03/23/24 Range/Units 23:52 17:30 17:30 WBC (3.98-10.04) x10^3/uL RBC (3.93-5.22) x10^6/uL Hgb (11.2-15.7) g/dL Hct (34.1-44.9) % MCV (79.4-94.8) fL MCH (25.6-32.2) pg MCHC (32.2-35.5) g/dL RDW (11.7-14.4) % Plt Count (182-369) x10^3/uL MPV (9.4-12.3) fL Gran % (34.0-71.1) % Immature Gran % (Auto) (0.001-0.429) % Nucleat RBC Rel Count (0.00-0.2) % Eos # (Auto) (0.04-0.36) x10^3/uL Immature Gran # (Auto) (0.001-0.031) x10^3u/L Absolute Lymphs (auto) (1.18-3.74) x10^3/uL Absolute Monos (auto) (0.24-0.86) x10^3/uL Absolute Nucleated RBC (0.00-0.012) x10^3u/L Lymphocytes % (19.3-51.7) % Monocytes % (4.7-12.5) % Eosinophils % (0.7-5.8) % Basophils % (0.1-1.2) % Absolute Granulocytes (1.56-6.13) x10^3/uL Basophils # (0.01-0.08) x10^3/uL Sodium 137 (135-145) mmol/L Potassium 4.2 (3.5-5.1) mmol/L Chloride 103 (98-107) mmol/L Carbon Dioxide 26 (22-30) mmol/L Anion Gap 12.0 (5-15) MEQ/L BUN 13 (7-17) mg/dL Creatinine 0.51 L (0.52-1.04) mg/dL Estimated GFR 115.8 ML/MIN Glucose 180 H (74-106) mg/dL Lactic Acid (0.4-2.0) Calcium 9.0 (8.4-10.2) mg/dL Total Bilirubin 0.60 (0.2-1.3) mg/dL AST 36 (14-36) U/L ALT 40 H (0-35) U/L Alkaline Phosphatase 90 (38-126) U/L Serum Total Protein 7.4 (6.3-8.2) g/dL Albumin 4.0 (3.5-5.0) g/dL Amylase 80 (30-110) U/L Lipase 31 (23-300) U/L Serum HCG, Qual NEGATIVE (NEGATIVE) Urine Color Yellow (Yellow) Urine Appearance Clear (Clear) Urine pH 5.5 (4.6-8.0) Ur Specific [place] 1.015 (1.005-1.030) Urine Protein Negative (Negative) Urine Glucose (UA) Negative (Negative) mg/dL Urine Ketones Trace A (Negative) Urine Blood Negative (Negative) Urine Nitrite Negative (Negative) Urine Bilirubin Negative (Negative) Urine Urobilinogen 0.2 (0.2) mg/dL Ur Leukocyte Esterase Moderate A (Negative) U Hyaline Cast (Auto) NONE SEEN (0-2) /LPF Urine Microscopic RBC 0-2 (0-5) /HPF Urine Microscopic WBC 51-100 A (0-5) /HPF Ur Epithelial Cells None Seen (None Seen) /HPF Urine Bacteria Rare A (None Seen) /HPF Urine Culture Reflexed YES (NO) 03/23/24 03/23/24 Range/Units 17:30 17:28 WBC 5.7 (3.98-10.04) x10^3/uL RBC 4.48 (3.93-5.22) x10^6/uL Hgb 12.7 (11.2-15.7) g/dL Hct 38.7 (34.1-44.9) % MCV 86.4 (79.4-94.8) fL MCH 28.3 (25.6-32.2) pg MCHC 32.8 (32.2-35.5) g/dL RDW 13.3 (11.7-14.4) % Plt Count 227 (182-369) x10^3/uL MPV 9.8 (9.4-12.3) fL Gran % 66.5 (34.0-71.1) % Immature Gran % (Auto) 0.2 (0.001-0.429) % Nucleat RBC Rel Count 0.0 (0.00-0.2) % Eos # (Auto) 0.24 (0.04-0.36) x10^3/uL Immature Gran # (Auto) 0.01 (0.001-0.031) x10^3u/L Absolute Lymphs (auto) 1.35 (1.18-3.74) x10^3/uL Absolute Monos (auto) 0.27 (0.24-0.86) x10^3/uL Absolute Nucleated RBC 0.00 (0.00-0.012) x10^3u/L Lymphocytes % 23.7 (19.3-51.7) % Monocytes % 4.7 (4.7-12.5) % Eosinophils % 4.2 (0.7-5.8) % Basophils % 0.7 (0.1-1.2) % Absolute Granulocytes 3.78 (1.56-6.13) x10^3/uL Basophils # 0.04 (0.01-0.08) x10^3/uL Sodium (135-145) mmol/L Potassium (3.5-5.1) mmol/L Chloride (98-107) mmol/L Carbon Dioxide (22-30) mmol/L Anion Gap (5-15) MEQ/L BUN (7-17) mg/dL Creatinine (0.52-1.04) mg/dL Estimated GFR ML/MIN Glucose (74-106) mg/dL Lactic Acid 1.8 (0.4-2.0) Calcium (8.4-10.2) mg/dL Total Bilirubin (0.2-1.3) mg/dL AST (14-36) U/L ALT (0-35) U/L Alkaline Phosphatase (38-126) U/L Serum Total Protein (6.3-8.2) g/dL Albumin (3.5-5.0) g/dL Amylase (30-110) U/L Lipase (23-300) U/L Serum HCG, Qual (NEGATIVE) Urine Color (Yellow) Urine Appearance (Clear) Urine pH (4.6-8.0) Ur Specific [place] (1.005-1.030) Urine Protein (Negative) Urine Glucose (UA) (Negative) mg/dL Urine Ketones (Negative) Urine Blood (Negative) Urine Nitrite (Negative) Urine Bilirubin (Negative) Urine Urobilinogen (0.2) mg/dL Ur Leukocyte Esterase (Negative) U Hyaline Cast (Auto) (0-2) /LPF Urine Microscopic RBC (0-5) /HPF Urine Microscopic WBC (0-5) /HPF Ur Epithelial Cells (None Seen) /HPF Urine Bacteria (None Seen) /HPF Urine Culture Reflexed (NO) - Progress Progress: improved, re-examined Progress Note: 03/23/24 22:[address] Vargas covering for Dr. Valdovinos at . and with pt and family- they prefer admission there to manage stoma. and they have agreed to look for a bed - this may take time. Discussed with : Other (Dr. Vargas) Will see patient in: hospital (full admit) Counseled pt/family regarding: lab results, diagnosis, need for follow-up, rad results Medical Desision Making - Independent Historian Additional History obtained from: Family - Discussion of managment Care discussed with:: specialist Reviewed:: Test results, Need for additional workup Agreed on:: Treatment plan, need for follow-up - Diagnostic Testing Diagnostic test were ordered, analyzed, and reviewed by me: Yes Radiological Interpretation: Teleradiologist Report - Risk of complications The pt has a mod risk of morbidity or mortality based on: Need for prescription drug management The pt has a high risk of morbidity or mortality based on: Decision regarding hospitilization or escalation of hosp level of care - Departure Departure Disposition: Transfer Clinical Impression: peristomal skin lesion Condition: Good Critical Care Time: No Referrals: MILO ESPINO MD [Primary Care Provider] - Follow up/PCP as directed Instructions: Wound Infection
[2024-03-23 17:38] LABS: Absolute Neutrophil Ct (ANC) 3.78 x10^3/uL (1.56-6.13); BASOPHIL % 0.7 % (0.1-1.2); Basophil (Absolute #) 0.04 x10^3/uL (0.01-0.08); Eosinophil % 4.2 % (0.7-5.8); Eosinophil (Absolute #) 0.24 x10^3/uL (0.04-0.36); Hematocrit 38.7 % (34.1-44.9); Hemoglobin 12.7 g/dL (11.2-15.7); IMMATURE GRAN # 0.01 x10^3u/L (0.001-0.031); IMMATURE GRAN % 0.2 % (0.001-0.429); Lymphocyte (Absolute #) 1.35 x10^3/uL (1.18-3.74); Lymphocytes % 23.7 % (19.3-51.7); Mean Cell Volume 86.4 fL (79.4-94.8); Mean Corpuscular Hemoglobin 28.3 pg (25.6-32.2); Mean Corpuscular Hgb Concent. 32.8 g/dL (32.2-35.5); Mean Platelet Volume 9.8 fL (9.4-12.3); Monocyte (Absolute #) 0.27 x10^3/uL (0.24-0.86); Monocytes % 4.7 % (4.7-12.5); Neutrophil % 66.5 % (34.0-71.1); Platelet Count 227 x10^3/uL (182-369); Red Blood Count 4.48 x10^6/uL (3.93-5.22); Red Cell Distribution Width 13.3 % (11.7-14.4); White Blood Count 5.7 x10^3/uL (3.98-10.04)
[2024-03-23] MEDS ORDERED: Sodium Chloride 0.9% 1000 ML 1,000 ML ONE (17:43)
[2024-03-23] MEDS ORDERED: ROCEPHIN 1 GM / 100 ML NaCl 1 GM/100 ML IVPB IV ONE (17:43)
[2024-03-23] MEDS: Sodium Chloride 0.9% 1000 ML 1,000 ML IV SCH (17:46)
[2024-03-23] MEDS: ROCEPHIN 1 GM / 100 ML NaCl 1 GM/100 ML IVPB IV ONE (17:50)
[2024-03-23 17:51] LABS: BILIRUBIN,TOTAL 0.6 mg/dL (0.2-1.3); Creatinine 1 0.51 mg/dL (0.52-1.04); EST GLOMERULAR FILTRATION RATE 115.8 ML/MIN; HCG SERUM TEST NEGATIVE (NEGATIVE); Potassium 4.2 mmol/L (3.5-5.1); Total Protein 7.4 g/dL (6.3-8.2)
[2024-03-23] MEDS ORDERED: FLAGYL 500 MG IVPB 500 MG/100 ML BAG IV ONE (18:36)
[2024-03-23] MEDS: FLAGYL 500 MG IVPB 500 MG/100 ML BAG IV STA (18:38)
--- NOTE | 2024-03-23 19:17 | XRAY ---
CLINICAL HISTORY: Abdominal abscess - Crohns COMPARISON: No prior studies available for comparison. TECHNIQUE: Non-contrast CT of the abdomen and pelvis was performed, with the following protocol: axial images with reconstructed coronal and sagittal images. No intravenous contrast was administered. One of the following dose reduction techniques was utilized for this exam: Automated exposure control, adjustment of the mA and/or kV according to patient size, and use of iterative reconstruction. FINDINGS: Abdomen: Liver: Normal in size, shape, and density. No focal lesions, cysts, or masses were identified. Gallbladder and Biliary System: The gallbladder is normal in size and shape. No wall thickening, pericholecystic fluid, or gallstones were identified. Pancreas: Pancreatic head, body, and tail are visualized and appear normal in size and density. No pancreatic masses or calcifications were noted. Spleen: Normal in size, shape, and density. No splenic lesions or masses were identified. Kidneys and Adrenal Glands: Both kidneys are normal in size, shape, and position. Cortical thickness is within normal limits. No renal calculi or hydronephrosis. Adrenal glands are unremarkable. Appendix: The appendix is normal in size without estevan appendiceal fat stranding, and without an appendicolith. No evidence of appendiceal abscess or perforation. Pelvis: Urinary Bladder: Normal in contour and wall thickness. No intraluminal lesions. Uterus: Normal in size and contour. No masses or abnormal thickening. Ovaries: Not well visualized but no gross abnormalities noted. Vagina: Normal in contour and wall thickness. Cervix: No evidence of mass or abnormal thickening. Peritoneal and Retroperitoneal Structures: Right anterior para midline hernial defect, containing collapsed bowel loop, with abundant fat content, with 24 x 16 mm nodular soft tissue dermal lesion, no proximal bowel dilatation, for clinical correlation. No free fluid or abnormal fluid collections were identified within the abdomen or pelvis. No lymphadenopathy was noted. Bones and Soft Tissues: Pelvic bones and soft tissues are unremarkable. No fractures or abnormal masses were identified. IMPRESSION: Right anterior para midline hernial defect, containing collapsed bowel loop, with abundant fat content, with 24 x 16 mm nodular soft tissue dermal lesion, no proximal bowel dilatation, for clinical correlation. Electronically Signed by: Anshu Bishop MD. (03/23/2024 19:12:37 EDT)
[2024-03-24 00:24] LABS: Appearance Clear (Clear); Bacteria Rare /HPF (None Seen); Bilirubin Negative (Negative); Blood Negative (Negative); Epithelial Cells None Seen /HPF (None Seen); Glucose, Urine Negative (Negative); Hyaline Casts NONE SEEN /LPF (0-2); Ketones Trace (Negative); Leukocyte Esterase Moderate (Negative); Nitrite Negative (Negative); Ph 5.5 (4.6-8.0); Protein,Urine Dip Negative (Negative); RBC 0-2 /HPF (0-5); Specific Gravity 1.015 (1.005-1.030); Urobilinogen 0.2 mg/dL (0.2); WBC 51-100 /HPF (0-5)
[2024-03-24 00:37] LABS: ADD URINE CULTURE? YES (NO)
[2024-03-24 02:56] VITALS: RESP 18
[2024-03-24 03:15] VITALS: BP 154/93; PULSE 85; TEMP 98.2; O2SAT 97
== END 2024-03-24 03:35 | disposition short-term general hospital (02) ==
LOC: ED 17:11
DX: K94.19 Other complications of enterostomy (principal); I10 Essential (primary) hypertension; E11.9 Type 2 diabetes mellitus without complications; Z79.4 Long term (current) use of insulin; Z79.899 Other long term (current) drug therapy
CPT/HCPCS: 36000; 36415; 74176; 80053; 81001; 82150; 83605; 83690; 84703; 85025; 87070; 87086; 96365; 96367; 99285; J0696

== ENCOUNTER 2024-06-17 20:46 | Emergency (ER) | payer MEDICARE, MEDICAID ==
--- NOTE | 2024-06-17 20:58 | ERPHSYRPT ---
- History of Present Illness Time Seen by Provider: 06/17/24 20:58 Source: patient Exam Limitations: no limitations Physician History: This is an obese 49-year-old white female patient of Dr. Espino who arrives by private vehicle with a complaint of left earache and left jaw pain that came on yesterday. The symptoms, this morning, were worse and they became more constant. Patient denies any traumatic injury to this area. Patient states she is allergic to amoxicillin but has taken Keflex in the past without any adverse effects. Patient has a history of hypertension, diabetes, gastroesophageal reflux disease and hypothyroidism. She has no difficulty swallowing. She has no sore throat pain. Timing/Duration: abrupt onset, this morning (Symptoms more constant this morning), yesterday Severity: moderate ENT Location: ear (L), facial (Left jaw pain) Associated Symptoms: ear pain (L), jaw pain (Left side) Allergies/Adverse Reactions: amoxicillin Allergy (Intermediate, Verified 06/17/24 21:03) Nausea and Vomiting latex Allergy (Intermediate, Verified 06/17/24 21:03) Rash Home Medications: Carvedilol 3.125 mg [Coreg 3.125 MG] 3.125 mg PO DINNER 11/15/23 [History] Levothyroxine Sodium [Synthroid] 150 mcg PO DINNER 11/15/23 [History] Omeprazole 40 mg PO DINNER 11/15/23 [History] Insulin Lispro [Humalog] 1 unit SQ UD 03/23/24 [History] Apixaban [Eliquis] 5 mg PO Q12H 06/17/24 [History] Hx Tetanus, Diphtheria Vaccination/Date Given: No Hx Influenza Vaccination/Date Given: Yes Hx Pneumococcal Vaccination/Date Given: No Travel Risk - International Travel Have you traveled outside of the country in past 3 weeks: No - Emerging Infectious Disease Are you exhibiting symptoms associated with any current EIDs: No - Review of Systems Constitutional: No Symptoms Eyes: No Symptoms Ears, Nose, & Throat: Ear Pain (Left side) Respiratory: No Symptoms Cardiac: No Symptoms Abdominal/Gastrointestinal: No Symptoms Genitourinary Symptoms: No Symptoms Musculoskeletal: No Symptoms Skin: No Symptoms Neurological: No Symptoms Psychological: No Symptoms Endocrine: No Symptoms Hematologic/Lymphatic: No Symptoms Immunological/Allergic: No Symptoms All Other Systems: Reviewed and Negative - Past Medical History Pertinent Past Medical History: Yes Neurological History: No Pertinent History ENT History: No Pertinent History Cardiac History: Hypertension Respiratory History: Other Endocrine Medical History: Diabetes Type II, Hypothyroidism Musculoskeletal History: Osteoarthritis, Other GI Medical History: Crohns Disease, Hemorrhoids History: No Pertinent History Psycho-Social History: No Pertinent History Female Reproductive Disorders: No Pertinent History Other Medical History: PATIENT REPORTS 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 HX OF CROHN'S DISEASE WITH COLECTOMY WITH PLACEMENT OF ILEOSTOMY 03/10. STATES WAS IN THE HOSPITAL FOR EXTENDED PERIOD OF TIME DUE TO WEIGHT LOSS (TOTAL OF 75#) LAST YEAR AND HAS BEEN WEAK SINCE CROHN'S DX AND SURGERY. - Past Surgical History Past Surgical History: Yes Neuro Surgical History: No Pertinent History Cardiac: No Pertinent History Respiratory: No Pertinent History Gastrointestinal: Other Genitourinary: No Pertinent History Musculoskeletal: No Pertinent History Female Surgical History: Section Other Surgical History: I & D labial abcess/ total colectomy with ileostomy Significant Family History: no pertinent family hx - Female History Hx Last Menstrual Period: february - Social History Smoking Status: Former smoker How long have you smoked: 14 Exposure to second hand smoke: No Drug Use: none Patient Lives Alone: No - Social Determinants of Health Will the patient participate in the screening: Yes Do you worry about a steady place to live?: No In the past 12 months,have you had to go without utilities?: No Transportation Issues: No Has anyone in your support network made you feel unsafe?: No Have you or anyone in your house had to go without enough: Choose not to answer - Nursing Vital Signs Nursing Vital Signs: Initial Vital Signs Temperature 97.8 F 06/17/24 20:50 Pulse Rate 95 H 06/17/24 20:50 Respiratory Rate 18 06/17/24 20:50 Blood Pressure 168/91 06/17/24 20:50 O2 Sat by Pulse Oximetry 98 06/17/24 20:50 Pain Scale Pain Intensity 8 - Physical Exam General Appearance: no apparent distress, alert, anxiety, obese Eye Exam: bilateral eye: normal inspection, PERRL, EOMI Ear Exam: right ear: canal normal, TM normal, left ear: swelling, tenderness, TM bulging (Mild but visible), bilateral ear: auricle normal Nasal Exam: normal inspection Throat Exam: normal, pharynx normal Neck Exam: normal inspection, non-tender, supple, full range of motion, trachea midline Cardiovascular/Respiratory Exam: chest non-tender, no respiratory distress Abdominal Exam: non-tender Neurologic Exam: alert, oriented x 3, cooperative, bunk assembler II-XII nml as tested, normal mood/affect, nml cerebellar function, nml station & gait, sensation nml Skin Exam: normal color, warm, dry SpO2 Interpretation: normal O2 Delivery: Room Air - Course Nursing assessment & vital signs reviewed: Yes Ordered Tests: Medication Summary Discontinued Medications Generic Name Dose Route Start Last Admin Trade Name Thu PRN Reason Stop Dose Admin Cephalexin HCl 500 mg 06/17/24 21:01 06/17/24 21:10 Cephalexin Mh500 Mg Capsule PO 06/17/24 21:02 500 mg STAT ONE Administration Cephalexin HCl Confirm 06/17/24 21:08 Cephalexin Mh500 Mg Capsule Administered 06/17/24 21:09 Dose 500 mg .ROUTE .STK-MED ONE Prednisone 20 mg 06/17/24 21:01 06/17/24 21:09 Prednisone 20 Mg Tablet PO 06/17/24 21:02 20 mg STAT ONE Administration Prednisone Confirm 06/17/24 21:08 Prednisone 20 Mg Tablet Administered 06/17/24 21:09 Dose 20 mg .ROUTE .STK-MED ONE - Progress Progress: improved, pain not gone completely Progress Note: 06/17/24 21:37 My medical decision making and the assignment of low complexity to this patient's medical issue today is based on review of the patient's past medical history, review the patient's medication list, review patient drug allergy list, history present illness and physical findings on examination. The workup in this patient does not require any laboratory radiographic studies. Differential diagnosis includes but is not limited to otitis media, otitis externa, TMJ 06/17/24 21:39 Again, patient has stated to the triage nurse and myself she has taken Keflex in the past without any adverse effects. Counseled pt/family regarding: diagnosis, need for follow-up Medical Desision Making - Diagnostic Testing Diagnostic test were ordered, analyzed, and reviewed by me: No - Risk of complications The pt has a mod risk of morbidity or mortality based on: Need for prescription drug management - Departure Departure Disposition: Home Clinical Impression: Left otitis media Condition: Stable Critical Care Time: No Referrals: MILO ESPINO MD [Primary Care Provider] - Follow up/PCP as directed Additional Instructions: Take your antibiotics and steroids as prescribed. Monitor your blood sugar closely when taking the steroids. Call your primary care provider tomorrow, 06/18/2024, to make an appointment for follow-up to be seen in approxi-5 to 7 days. Continue your other medications as prescribed Prescriptions: Prednisone 10 mg [Deltasone 10 mg] 10 mg PO TID #6 tablet Cephalexin Mh 500 mg [Keflex 500 mg] 500 mg PO TID #21 cap
[2024-06-17 21:03] VITALS: BP 168/91; PULSE 95; RESP 18; TEMP 97.8; O2SAT 98
[2024-06-17] MEDS ORDERED: KEFLEX 500 MG ONE (21:08)
[2024-06-17] MEDS ORDERED: DELTASONE 20 MG ONE (21:08)
[2024-06-17] MEDS: DELTASONE 20 MG PO ONE (21:09)
[2024-06-17] MEDS: KEFLEX 500 MG PO ONE (21:10)
== END 2024-06-17 21:48 | disposition home or self-care (01) ==
LOC: ED 20:46
DX: H66.92 Otitis media, unspecified, left ear (principal); H92.02 Otalgia, left ear; R68.84 Jaw pain; I10 Essential (primary) hypertension; E11.9 Type 2 diabetes mellitus without complications; Z79.52 Long term (current) use of systemic steroids; Z79.4 Long term (current) use of insulin; Z79.01 Long term (current) use of anticoagulants; Z79.899 Other long term (current) drug therapy
CPT/HCPCS: 99282; A9270-GY

== ENCOUNTER 2025-06-16 08:53 | Emergency (ER) | payer MEDICARE ==
[2025-06-16 09:14] VITALS: RESP 14; TEMP 97.1; O2SAT 98
--- NOTE | 2025-06-16 09:22 | ERPHSYRPT ---
- History of Present Illness Time Seen by Provider: 06/16/25 09:20 Source: patient Exam Limitations: no limitations Patient Subjective Stated Complaint: patient states she thinks she has a blood clot in left leg, patient has hx of blood clots and states her leg feels the same way as the previous clots. feels like a deep internal bruise Triage Nursing Assessment: patient presents to ed via private vehicle, patient able to ambulate into ed without complication, patient alert and oriented x 4, skin p/w/d, patient has warmth without redness to left lower extremity, positive homans sign to left lower extremity, denies any other symptoms at this time Physician History: Patient comes to the emergency room due to left lower extremity discomfort going on for the past couple days has history of DVTs believes he might have 1 now she is in the past used Eliquis and it was successful for her she has not taken for a long period of time. She denies any other complaints no injuries to the leg. Severity of Pain-Max: mild Severity of Pain-Current: mild Lower Extremities Pain: leg: left Modifying Factors: Improves With: nothing Associated Symptoms: none Allergies/Adverse Reactions: amoxicillin Allergy (Intermediate, Verified 06/16/25 09:05) Nausea and Vomiting latex Allergy (Intermediate, Verified 06/16/25 09:05) Rash Home Medications: Carvedilol 3.125 mg [Coreg 3.125 MG] 3.125 mg PO DINNER 11/15/23 [History] Levothyroxine Sodium [Synthroid] 150 mcg PO DINNER 11/15/23 [History] Insulin Lispro [Humalog] 1 unit SQ UD 03/23/24 [History] Cholecalciferol (Vitamin D3) [Vitamin D] 1 each PO WEEKLY 02/24/25 [History] Multivit/Folic Acid/Vit K1 [Women's 50 Plus Advanced Mv Tb] 1 each PO DAILY 02/24/25 [History] Valacyclovir HCl [Valacyclovir] 500 mg PO BID 06/16/25 [History] Hx Tetanus, Diphtheria Vaccination/Date Given: No Hx Influenza Vaccination/Date Given: No Hx Pneumococcal Vaccination/Date Given: No Travel Risk - International Travel Have you traveled outside of the country in past 3 weeks: No - Emerging Infectious Disease Are you exhibiting symptoms associated with any current EIDs: No - Review of Systems Constitutional: No Fever, No Chills Respiratory: No Cough, No Dyspnea Cardiac: No Chest Pain, No Edema, No Syncope Abdominal/Gastrointestinal: No Abdominal Pain, No Nausea, No Vomiting, No Diarrhea Musculoskeletal: No Back Pain, No Neck Pain Skin: No Rash Neurological: No Dizziness, No Focal Weakness, No Sensory Changes - Past Medical History Pertinent Past Medical History: Yes Neurological History: No Pertinent History ENT History: No Pertinent History Cardiac History: Deep Vein Thrombosis, Hypertension Respiratory History: Other Endocrine Medical History: Diabetes Type I, Hypothyroidism Musculoskeletal History: Other GI Medical History: Crohns Disease, Hemorrhoids History: No Pertinent History Psycho-Social History: No Pertinent History Female Reproductive Disorders: No Pertinent History Other Medical History: 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 HX OF CROHN'S DISEASE W/ COLECTOMY W/ PLACEMENT OF ILEOSTOMY 03/10. WAS IN THE HOSPITAL FOR EXTENDED PERIOD OF TIME D/T WEIGHT LOSS (75#). HSV- outbreak current - Past Surgical History Past Surgical History: Yes Neuro Surgical History: No Pertinent History Cardiac: No Pertinent History Respiratory: No Pertinent History Gastrointestinal: Other Genitourinary: No Pertinent History Musculoskeletal: No Pertinent History Female Surgical History: Section Other Surgical History: I & D labial abcess/ total colectomy with ileostomy Significant Family History: no pertinent family hx - Female History Hx Last Menstrual Period: february Hx Now: No - Social History Smoking Status: Former smoker How long have you smoked: 14 Exposure to second hand smoke: No Drug Use: none - Social Determinants of Health Will the patient participate in the screening: Yes Do you worry about a steady place to live?: No Do you have any problems with any of the following?: No known problems In the past 12 months,have you had to go without utilities?: No Transportation Issues: No Has anyone in your support network made you feel unsafe?: No Have you or anyone in your house had to go w/o enough food: Choose not to answer - Nursing Vital Signs Nursing Vital Signs: Initial Vital Signs Temperature 97.1 F 06/16/25 08:53 Pulse Rate 94 H 06/16/25 08:53 Respiratory Rate 14 06/16/25 08:53 Blood Pressure 172/99 06/16/25 08:53 O2 Sat by Pulse Oximetry 98 06/16/25 08:53 Pain Scale Pain Intensity 0 - Physical Exam General Appearance: alert Eyes, Ears, Nose, Throat Exam: moist mucous membranes Cardiovascular/Respiratory Exam: chest non-tender, normal breath sounds, regular rate/rhythm, no respiratory distress Gastrointestinal/Abdominal Exam: non-tender, guarding Legs Exam: left leg: pain Neuro/Tendon Exam: normal sensation Mental Status Exam: alert, oriented x 3 SpO2 Interpretation: normal SpO2: 98 O2 Delivery: Room Air Comments: Homans' sign positive the left lower extremity Ordered Tests: Active Orders 24 hr Category Date Time Status VENOUS UNILAT/LIMITED EXTREMIT [US] Stat Exams 06/16/25 09:18 Completed BMP Stat Lab 06/16/25 10:10 Received CBC W DIFF Stat Lab 06/16/25 10:10 Completed Lab/Rad Data: Laboratory Result Diagrams 06/16/25 10:10 Laboratory Results 06/16/25 Range/Units 10:10 WBC 7.0 (3.98-10.04) x10^3/uL RBC 4.34 (3.93-5.22) x10^6/uL Hgb 12.3 (11.2-15.7) g/dL Hct 38.2 (34.1-44.9) % MCV 88.0 (79.4-94.8) fL MCH 28.3 (25.6-32.2) pg MCHC 32.2 (32.2-35.5) g/dL RDW 13.1 (11.7-14.4) % Plt Count 244 (182-369) x10^3/uL MPV 10.0 (9.4-12.3) fL Gran % 59.6 (34.0-71.1) % Immature Gran % (Auto) 0.1 (0.001-0.429) % Nucleat RBC Rel Count 0.0 (0.00-0.2) % Eos # (Auto) 0.32 (0.04-0.36) x10^3/uL Immature Gran # (Auto) 0.01 (0.001-0.031) x10^3u/L Absolute Lymphs (auto) 2.03 (1.18-3.74) x10^3/uL Absolute Monos (auto) 0.41 (0.24-0.86) x10^3/uL Absolute Nucleated RBC 0.00 (0.00-0.012) x10^3u/L Lymphocytes % 28.9 (19.3-51.7) % Monocytes % 5.8 (4.7-12.5) % Eosinophils % 4.6 (0.7-5.8) % Basophils % 1.0 (0.1-1.2) % Absolute Granulocytes 4.19 (1.56-6.13) x10^3/uL Basophils # 0.07 (0.01-0.08) x10^3/uL - Progress Progress Note: 06/16/25 09:22 Patient will be worked up for a DVT of the lower extremity we will do an ultrasound. 06/16/25 10:34 Patient does have a DVT in of the lower extremity will be started on Eliquis she has done well with that in the past patient advised follow-up with primary care for further evaluation management. - Departure Departure Disposition: Extended Care Facility Clinical Impression: DVT (deep venous thrombosis) Qualifiers: DVT location: lower extremity Affected thrombotic vein of extremity: u nspecified vein of extremity Chronicity: acute Laterality: left Qualified Code(s): I82.402 - Acute embolism and thrombosis of unspecified deep veins of left lower extremity Condition: Stable Critical Care Time: No Referrals: MILO ESPINO MD [Primary Care Provider, [facility]] - Follow up/PCP as directed Instructions: Deep vein thrombosis (blood clot in the leg) Prescriptions: Apixaban [Eliquis] 10 mg PO BID #28 tab
--- NOTE | 2025-06-16 10:15 | XRAY ---
Indication: Pain. Two-dimensional sonogram and color Doppler imaging major venous vessels left leg performed. Comparison: January 07, 2021 Posterior tibial vein demonstrates new occluding thrombus. No thrombus seen in the remaining deep venous vessels left leg including greater saphenous vein. Patent veins demonstrate normal compressibility and normal venous waveforms. Impression: New occluding DVT posterior tibial vein.
[2025-06-16 10:22] LABS: BASOPHIL % 1.0 % (0.1-1.2); Basophil (Absolute #) 0.07 x10^3/uL (0.01-0.08); Eosinophil (Absolute #) 0.32 x10^3/uL (0.04-0.36); Hematocrit 38.2 % (34.1-44.9); Hemoglobin 12.3 g/dL (11.2-15.7); IMMATURE GRAN # 0.01 x10^3u/L (0.001-0.031); IMMATURE GRAN % 0.1 % (0.001-0.429); Lymphocyte (Absolute #) 2.03 x10^3/uL (1.18-3.74); Mean Corpuscular Hemoglobin 28.3 pg (25.6-32.2); Mean Corpuscular Hgb Concent. 32.2 g/dL (32.2-35.5); Monocyte (Absolute #) 0.41 x10^3/uL (0.24-0.86); NUCLEATED RBC # 0.00 x10^3u/L (0.00-0.012); NUCLEATED RBC % 0.0 % (0.00-0.2); Platelet Count 244 x10^3/uL (182-369); Red Blood Count 4.34 x10^6/uL (3.93-5.22); White Blood Count 7.0 x10^3/uL (3.98-10.04)
[2025-06-16 10:36] LABS: Calcium 8.7 mg/dL (8.4-10.2); Carbon Dioxide 25.0 mmol/L (22-30); Creatinine 1 0.61 mg/dL (0.52-1.04); EST GLOMERULAR FILTRATION RATE 110.2 ML/MIN; Glucose 156.0 mg/dL (74-106); Potassium 4.2 mmol/L (3.5-5.1)
[2025-06-16 10:50] VITALS: BP 150/85; PULSE 83
== END 2025-06-16 10:54 | disposition home or self-care (01) ==
LOC: ED 08:53
DX: I82.402 Acute embolism and thrombosis of unspecified deep veins of left lower extremity (principal); I10 Essential (primary) hypertension; E10.9 Type 1 diabetes mellitus without complications; Z79.899 Other long term (current) drug therapy